=== PATIENT | female | born 1970 | race Caucasian/White ===

== ENCOUNTER 2018-03-18 10:39 | Emergency (ER) | payer MEDICARE, MEDICAID, SELFPAY | END 2018-03-18 11:15 | disposition home or self-care (01) | PROVIDERS: Emergency Provider Emergency Medicine; PCP Family Medicine; Visit Provider Emergency Medicine | DX: F41.9 Anxiety disorder, unspecified (principal); S61.401D Unspecified open wound of right hand, subsequent encounter; L98.499 Non-pressure chronic ulcer of skin of other sites with unspecified severity | CPT/HCPCS: 11042; 87070; 87075; 87205; 93005; 93010; 99283 ==

== ENCOUNTER → 2018-04-10 09:38 | Outpatient (CLI) | payer MEDICARE, MEDICAID, SELFPAY | PROVIDERS: PCP Family Medicine; Visit Provider Internal Medicine | DX: L98.499 Non-pressure chronic ulcer of skin of other sites with unspecified severity (principal); S61.401A Unspecified open wound of right hand, initial encounter; L97.312 Non-pressure chronic ulcer of right ankle with fat layer exposed | CPT/HCPCS: 11042 ==

== ENCOUNTER → 2018-04-17 09:07 | Outpatient (CLI) | payer MEDICARE, MEDICAID, SELFPAY | PROVIDERS: PCP Family Medicine; Visit Provider Internal Medicine | DX: L97.312 Non-pressure chronic ulcer of right ankle with fat layer exposed (principal); S61.401A Unspecified open wound of right hand, initial encounter; M36.8 Systemic disorders of connective tissue in other diseases classified elsewhere; L08.9 Local infection of the skin and subcutaneous tissue, unspecified | CPT/HCPCS: 11042; 87070; 87075; 87205 ==

== ENCOUNTER → 2018-04-24 08:47 | Outpatient (CLI) | payer MEDICARE, MEDICAID, SELFPAY | PROVIDERS: PCP Family Medicine; Visit Provider Internal Medicine | DX: L98.499 Non-pressure chronic ulcer of skin of other sites with unspecified severity (principal); S61.401D Unspecified open wound of right hand, subsequent encounter; L97.312 Non-pressure chronic ulcer of right ankle with fat layer exposed | CPT/HCPCS: 11042 ==

== ENCOUNTER → 2018-05-01 08:31 | Outpatient (CLI) | payer MEDICARE, MEDICAID, SELFPAY | PROVIDERS: PCP Family Medicine; Visit Provider Internal Medicine | DX: L98.499 Non-pressure chronic ulcer of skin of other sites with unspecified severity (principal); S61.401A Unspecified open wound of right hand, initial encounter; L97.311 Non-pressure chronic ulcer of right ankle limited to breakdown of skin; M36.8 Systemic disorders of connective tissue in other diseases classified elsewhere | CPT/HCPCS: 97597 ==

== ENCOUNTER → 2018-05-08 08:41 | Outpatient (CLI) | payer MEDICARE, MEDICAID, SELFPAY ==
--- NOTE | 2018-05-08 | OV.WND_ITS ---
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 Allergies prednisone, penicillin HPI This information was obtained from the patient 05/08/18. Seen by Dr. Cade. The patient reports increased pain associated with the right 2nd MTPJ non-pressure ulcer but none regarding the right lateral malleolus non- pressure ulcer. Her ulcers are complicated significantly by her diagnosis of scleroderma and she has a history of very refractory wound healing. 05/01/18. Seen by Dr. Cade. The patient reports continue significant pain associated with the right 2nd MTPJ non-pressure ulcer but none regarding the right lateral malleolus non-pressure ulcer. She's no longer applying topical gentamicin to the sites and covering only with a foam dressing. Her ulcers are complicated significantly by her diagnosis of scleroderma and she has a history of very refractory wound healing. 04/24/18. Seen by Dr. Cade. The patient reports continued pain associated with the chronic right 2nd MTPJ and right lateral malleolus non-pressure ulcers over the past week. Her wound culture from last week showed no growth. 04/17/18. Seen by Dr. Cade. The patient reports persistent pain associated with the chronic right 2nd MTPJ and right lateral malleolus non-pressure ulcers over the past week. Her ulcers are complicated significantly by her diagnosis of scleroderma and she has a history of very refractory wound healing. 04/10/18. Seen by Dr. Cade. The patient does not report significant pain nor drainage associated with the chronic right 2nd MCPJ or right lateral malleolus nonpressure ulcers since her last visit. Her wound culture grew Luh and she's no longer using topical antibiotics. 04/02/18. Seen by Dr. Cade. The patient does not report significant pain nor drainage associated with the chronic right 2nd MCPJ or right lateral malleolus nonpressure ulcers since her last visit. 03/26/18. Seen by Dr. Cade. The patient reports some intermittent pain associated with the chronic right 2nd MCPJ and right lateral malleolus non-pressure ulcers since her last visit. 03/18/18. Seen by Dr. Cade. The patient reports some recurrent pain associated with a recently healed right fourth finger nonpressure ulcer. She is on for drainage from the site however. She also does not report significant drainage or increased pain associated with the right second MCPJ nor right lateral malleolus nonpressure ulcers. 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 03/06/18. Seen by Dr. Cade. The patient reports some continued pain associated with chronic right second MCPJ and right lateral malleolus nonpressure ulcers since her last visit.. She saw her hand surgeon, Dr. Lezama, last week who has discharged her. 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 02/27/18. Seen by Dr. Cade. The patient does not report increased pain or drainage associated with the chronic right fourth finger, right second metacarpal phalangeal joint, her right lower leg nonpressure ulcers since her last visit. 02/12/18. Seen by Dr. Cade. The patient does not report increased pain or drainage associated with the chronic right fourth finger, right second metacarpal phalangeal joint, and right lower leg nonpressure ulcers since her last visit. She's applying topical gentamicin to each as recommended in her right lower leg ulcer grew a coag-negative staph species sensitive to gentamicin. Of note, her condition is complicated by advanced scleroderma. 02/13/18. Seen by Dr. Cade. The patient does not report increased drainage or pain associated with chronic right fourth finger nonpressure ulcer since her last visit. She started on Bactrim at this time however was unable tolerate this due to some nonspecific symptoms of confusion. She also reports a chronic wound over the right hand second MCP joint as well as the right lateral malleolus. She does not report drainage at these sites but states they are painful. 02/06/18. Seen by Dr. Cade. The patient does not report increased drainage nor pain associated with the chronic right 4th finger non-pressure ulcer and she's been started on Bactrim for the recent polymicrobial positive wound culture taken at her last visit. She does not report adverse side effects nor difficulty swallowing the tablets despite her advanced scleroderma which has been the eitiology of the chronic ulcer. 01/30/18. Seen by Dr. Cade. The patient is new to our clinic and presents with a chronic right 4th finger ulcer that's resulted as a complication of her advanced scleroderma. 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 Lezama, orthopedic hand specialist, who's referred her to our clinic for possible HBOT on the background of possible underlying osteomyelitis of the associated phalanx. She had a recent xray that suggested osteomyelitis however her MRI performed today does not confirm this. She reports persistent pain at the ulcer site but does not report significant drainage and is not currently on antibiotics. Past Medical History This information was obtained from the patient Patient has a medical history of: Raynaud's Disease Scleroderma Depression Anxiety Complaints and Symptoms This information was obtained from the patient Patient complains of: General Notes: I have reviewed and concur with the Review of Systems and Past Family Social History documents completed by the clinician, I have reviewed and concur with the Wound Assessment document completed by the clinician Integumentary (Hair/Skin/Nails): Open Sore Musculoskeletal: Deformities, Joint Swelling Prior Wound History: Drainage, Pain Psychiatric: Depression Patient denies complaints or symptoms related to: Constitutional Symptoms (General Health): Chills, Fever Ear/Nose/Mouth/Throat: Hearing Loss / Aid Gastrointestinal (GI): Difficulty Swallowing, Nausea / Vomiting, Stomach/ abdominal pain Hematologic/Lymphatic: Bleeding / Clotting Disorders Neurological: Loss of Protective Sensation Prior Wound History: Bleeding, Erythema Psychiatric: Memory Loss Respiratory: Shortness of Breath OBJECTIVE Constitutional Vital signs reviewed and noted. Frail appearing. Height/Length: 65 in (165.1 cm) , Weight: 111.1 lbs (50.5 kgs), BMI: 18.5, Temperature: 98.7 ?F (37.06 ?C), Pulse: 88 bpm , Respiratory Rate: 16 breaths/min, Blood Pressure: 108/65 mmHg, Pulse Oximetry: 97 %. Ears, Nose, Mouth, and Throat: No clinically significant hearing loss on informal examination. Respiratory: No respiratory distress. Even respirations and without use of accessory muscles.. Integumentary (Hair, Skin) Refer to appropriate clinician wound documentation for this visit; right 2nd MCPJ ulcer extends t subcut with minimal purulent drainage, joint erythematous, swollen, and tender ; right lateral malleolus ulcer extends to dermis. Wound #2 Right right 2nd knuckle is an acute Full Thickness Autoimmune Wound and has received a status of Not Healed. Subsequent wound encounter measurements are 0.2cm length x 0.2cm width x 0.1cm depth, with an area of 0.04 sq cm and a volume of 0.004 cubic cm. No tunneling has been noted. No sinus tract has been noted. No undermining has been noted. There was no drainage noted. The patient reports a wound pain of level 0/ 10. The wound margin is attached. Wound bed has No epithelialization, No eschar, No slough, No granulation. The periwound skin color is normal. The periwound skin exhibited: Edema, Dry/ Scaly. The periwound skin did not exhibit: Brawny Induration, Excoriation, Induration, Callus, Crepitus, Fluctuance, Friable, Rash, Moist, Maceration. The temperature of the periwound skin is Warm. Periwound skin does not exhibit signs or symptoms of infection. Local Pulse is N /A. Wound #3 Right, Lateral Ankle is an acute Partial Thickness Autoimmune Wound and has received an outcome of Healed - no new wound(s). Subsequent wound encounter measurements are 0cm length x 0cm width x 0cm depth, with an area of 0 sq cm and a volume of 0 cubic cm. No tunneling has been noted. No sinus tract has been noted. No undermining has been noted. There was no drainage noted. The patient reports a wound pain of level 0/10. The wound margin is attached. Wound bed has Yes epithelialization , No eschar, No slough, No granulation. The periwound skin texture is normal. The periwound skin moisture is normal. The periwound skin color is normal. The temperature of the periwound skin is WNL. Periwound skin does not exhibit signs or symptoms of infection. Local Pulse is Doppler. Neurological: Cranial nerves grossly intact with symmetric function normal by informal observation.. ASSESSMENT Active Problems ICD-10 (Encounter Diagnosis) L98.499 - Non-pressure chronic ulcer of skin of other sites with unspecified severity (Encounter Diagnosis) S61.401D - Unspecified open wound of right hand, subsequent encounter (Encounter Diagnosis) L97.312 - Non-pressure chronic ulcer of right ankle with fat layer exposed (Encounter Diagnosis) M36.8 - Systemic disorders of connective tissue in other diseases classified elsewhere (Encounter Diagnosis) L03.113 - Cellulitis of right upper limb PROCEDURES Wound #2 Wound #2 (Autoimmune Wound) is located on the right right 2nd knuckle. A selective debridement with a total area debrided of 0.01 sq cm was performed by Kevin Cade MD. to remove devitalized tissue: exudate and slough. The following instrument(s) were used: curette. Pain control was achieved using 4% Lido. A time out was conducted prior to the start of the procedure. No bleeding occurred. The procedure was tolerated well with a pain level of 0 throughout and a pain level of 0 following the procedure. Post Debridement Measurements: 0.1cm length x 0.1cm width x 0.2cm depth; with an area of 0.01 sq cm and a volume of 0.002 cubic cm; PLAN Wound Orders: Wound #2 Right right 2nd knuckle Anesthetic Topical Xylocaine to wound bed. - In clinic. May Use emla cream with dressing changes. Cleanser Cleanse Wound: - With Normal Saline or distilled water. May Shower. - Please cover when you take a shower, avoid water contact directly to the wound. Topical Treatments Antibiotic/Antimicrobial Ointment/Cream. - Gentamicin ointment. Dressings Cover and secure with: - Telfa pad secured with conform gauze and netting. Change Dressing: - Every other day. Wound #3 Right, Lateral Ankle Anesthetic Topical Xylocaine to wound bed. - In clinic. May Use emla cream with dressing changes. Cleanser Cleanse Wound: - With Normal Saline or distilled water. May Shower. - Please cover when you take a shower, avoid water contact directly to the wound. Dressings Cover and secure with: - Mepilex. Change Dressing: - Every 3 days. Additional Orders: Follow-Up Appointments Return Appointment: - - One week. Other information: If you develop fever, chills, increased pain, drainage, redness or swelling please call our office. If after hours, respond to the ER. Should you experience any significant changes in your wound(s) or have any questions regarding your home care instructions please contact the wound center @ [phone]. If after hours, contact your primary care physician or go to the hospital emergency room. Scribing Attestation I attest, as the nurse, that I scribed these orders for the physician. Laboratory: Bacteria identified in Wound by Culture - #2. General Notes: Please pick remover prescription for doxycycline and start today. Will call with culture results if any changes are needed. I've reviewed the clinician's documentation and agree with the evaluation and plan as written. In addition, the patient's ulcer demonstrates evidence of non-viable devitalized tissue which will continue to benefit from sharp debridement to help promote granulation and expedite healing. Also, I've cultured the drainage from the right 2nd MTPJ ulcer and started the patient on doxycycline for cellulitis. Antibiotics will be adjusted pending the culture results. Electronic Signature(s) Signed By: Date: Kevin Cade MD 05/08/2018 15:30:00 Entered By: Kevin Cade on 05/08/2018 15:24:40
== END ==
PROVIDERS: PCP Family Medicine; Visit Provider Internal Medicine
DX: L98.499 Non-pressure chronic ulcer of skin of other sites with unspecified severity (principal); S61.401A Unspecified open wound of right hand, initial encounter; L97.312 Non-pressure chronic ulcer of right ankle with fat layer exposed; M36.8 Systemic disorders of connective tissue in other diseases classified elsewhere; L03.113 Cellulitis of right upper limb
CPT/HCPCS: 87070; 87075; 87077; 87186; 87205; 97597

== ENCOUNTER → 2018-05-15 08:40 | Outpatient (CLI) | payer MEDICARE, MEDICAID, SELFPAY ==
--- NOTE | 2018-05-15 | OV.WND_ITS ---
Progress Note Details Patient Name: Su Escamilla Patient Number: [id number] PatientPatientDate: 05/15/2018 Clinician: Eboni Gentile Physician / Order Control Clerk Blood Bank: Elmer Martins SUBJECTIVE Chief Complaint This information was obtained from the patient Non- healing wound to right third finger and ankle related to scleroderma and Reynaud's. Allergies prednisone, penicillin HPI This information was obtained from the patient 05/15/18. Seen by Owen Martins PA-C. The patient reports that she has an appointment scheduled with Dr. Booth for September of this year. She does not report increased pain from her right MTPJ ulcer and she continues on her doxycycline for an infection of this ulcer. 05/08/18. Seen by Dr. Cade. The patient reports increased pain associated with the right 2nd MTPJ non-pressure ulcer but none regarding the right lateral malleolus non- pressure ulcer. Her ulcers are complicated significantly by her diagnosis of scleroderma and she has a history of very refractory wound healing. 05/01/18. Seen by Dr. Cade. The patient reports continue significant pain associated with the right 2nd MTPJ non-pressure ulcer but none regarding the right lateral malleolus non-pressure ulcer. She's no longer applying topical gentamicin to the sites and covering only with a foam dressing. Her ulcers are complicated significantly by her diagnosis of scleroderma and she has a history of very refractory wound healing. 04/24/18. Seen by Dr. Cade. The patient reports continued pain associated with the chronic right 2nd MTPJ and right lateral malleolus non-pressure ulcers over the past week. Her wound culture from last week showed no growth. 04/17/18. Seen by Dr. Cade. The patient reports persistent pain associated with the chronic right 2nd MTPJ and right lateral malleolus non-pressure ulcers over the past week. Her ulcers are complicated significantly by her diagnosis of scleroderma and she has a history of very refractory wound healing. 04/10/18. Seen by Dr. Cade. The patient does not report significant pain nor drainage associated with the chronic right 2nd MCPJ or right lateral malleolus nonpressure ulcers since her last visit. Her wound culture grew Luh and she's no longer using topical antibiotics. 04/02/18. Seen by Dr. Cade. The patient does not report significant pain nor drainage associated with the chronic right 2nd MCPJ or right lateral malleolus nonpressure ulcers since her last visit. 03/26/18. Seen by Dr. Cade. The patient reports some intermittent pain associated with the chronic right 2nd MCPJ and right lateral malleolus non-pressure ulcers since her last visit. 03/18/18. Seen by Dr. Cade. The patient reports some recurrent pain associated with a recently healed right fourth finger nonpressure ulcer. She is on for drainage from the site however. She also does not report significant drainage or increased pain associated with the right second MCPJ nor right lateral malleolus nonpressure ulcers. 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 03/06/18. Seen by Dr. Cade. The patient reports some continued pain associated with chronic right second MCPJ and right lateral malleolus nonpressure ulcers since her last visit.. She saw her hand surgeon, Dr. Lezama, last week who has discharged her. 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 02/27/18. Seen by Dr. Cade. The patient does not report increased pain or drainage associated with the chronic right fourth finger, right second metacarpal phalangeal joint, her right lower leg nonpressure ulcers since her last visit. 02/12/18. Seen by Dr. Cade. The patient does not report increased pain or drainage associated with the chronic right fourth finger, right second metacarpal phalangeal joint, and right lower leg nonpressure ulcers since her last visit. She's applying topical gentamicin to each as recommended in her right lower leg ulcer grew a coag-negative staph species sensitive to gentamicin. Of note, her condition is complicated by advanced scleroderma. 02/13/18. Seen by Dr. Cade. The patient does not report increased drainage or pain associated with chronic right fourth finger nonpressure ulcer since her last visit. She started on Bactrim at this time however was unable tolerate this due to some nonspecific symptoms of confusion. She also reports a chronic wound over the right hand second MCP joint as well as the right lateral malleolus. She does not report drainage at these sites but states they are painful. 02/06/18. Seen by Dr. aCde. The patient does not report increased drainage nor pain associated with the chronic right 4th finger non-pressure ulcer and she's been started on Bactrim for the recent polymicrobial positive wound culture taken at her last visit. She does not report adverse side effects nor difficulty swallowing the tablets despite her advanced scleroderma which has been the eitiology of the chronic ulcer. 01/30/18. Seen by Dr. Cade. The patient is new to our clinic and presents with a chronic right 4th finger ulcer that's resulted as a complication of her advanced scleroderma. 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 Lezama, orthopedic hand specialist, who's referred her to our clinic for possible HBOT on the background of possible underlying osteomyelitis of the associated phalanx. She had a recent xray that suggested osteomyelitis however her MRI performed today does not confirm this. She reports persistent pain at the ulcer site but does not report significant drainage and is not currently on antibiotics. Family History This information was obtained from the patient Diabetes - Father, Paternal Grandparents, Heart Disease - Maternal Grandparents , Lung Disease - Father, Mental Illness - Paternal Grandparents, Other - Mother, Stroke - Maternal Grandparents Social History This information was obtained from the patient Former smoker - 2012, Caffeine Use - 3 cups, Children - 2, Lives in - Private home , Mental health concerns - Depression, anxiety, Occupation - Disabled Past Medical History This information was obtained from the patient Patient has a medical history of: Raynaud's Disease Scleroderma Depression Anxiety Surgical History This information was obtained from the patient Patient has a surgical history of: Right hand digit amputations Complaints and Symptoms This information was obtained from the patient Patient complains of: General Notes: I have reviewed and concur with the Review of Systems and Past Family Social History documents completed by the clinician, I have reviewed and concur with the Wound Assessment document completed by the clinician Integumentary (Hair/Skin/Nails): Open Sore Musculoskeletal: Deformities, Joint Swelling Prior Wound History: Drainage, Pain Psychiatric: Depression Patient denies complaints or symptoms related to: Constitutional Symptoms (General Health): Chills, Fever Ear/Nose/Mouth/Throat: Hearing Loss / Aid Gastrointestinal (GI): Difficulty Swallowing, Nausea / Vomiting, Stomach/ abdominal pain Hematologic/Lymphatic: Bleeding / Clotting Disorders Neurological: Loss of Protective Sensation Prior Wound History: Bleeding, Erythema Psychiatric: Memory Loss Respiratory: Shortness of Breath OBJECTIVE Constitutional Vital signs reviewed and noted. Well developed, lucid, and in no acute distress. . Height/Length: 65 in (165.1 cm), Weight: 111.1 lbs (50.5 kgs), BMI: 18.5, Temperature: 98.8 ?F (37.11 ?C), Pulse: 95 bpm, Respiratory Rate: 16 breaths/min, Blood Pressure: 127/87 mmHg, Pulse Oximetry: 97 %. Ears, Nose, Mouth, and Throat: Grossly intact. Respiratory: No respiratory distress. Even respirations and without use of accessory muscles.. Integumentary (Hair, Skin) Refer to appropriate clinician wound documentation for this visit; ulcer extends to subcutaneous fat layer. . Wound #2 Right right 2nd knuckle is an acute Full Thickness Autoimmune Wound and has received a status of Not Healed. Subsequent wound encounter measurements are 0.2cm length x 0.2cm width x 0.1cm depth, with an area of 0.04 sq cm and a volume of 0.004 cubic cm. No tunneling has been noted. No sinus tract has been noted. No undermining has been noted. There was no drainage noted. The patient reports a wound pain of level 0/ 10. The wound margin is attached. Wound bed has Yes epithelialization, No eschar, No slough, No granulation. The periwound skin exhibited: Edema, Dry/Scaly, Erythema. The periwound skin did not exhibit: Brawny Induration, Excoriation, Induration, Callus, Crepitus, Fluctuance, Friable, Rash, Moist, Maceration. The temperature of the periwound skin is Warm. Periwound skin does not exhibit signs or symptoms of infection. Local Pulse is N/A. Psychiatric: Judgement and insight: Normal affect with normal thought pattern. Alert and oriented 3/3. Memory grossly intact.. Normal affect. Mood appropriate.. ASSESSMENT Active Problems ICD-10 (Encounter Diagnosis) L98.499 - Non-pressure chronic ulcer of skin of other sites with unspecified severity (Encounter Diagnosis) S61.401D - Unspecified open wound of right hand, subsequent encounter (Encounter Diagnosis) L97.312 - Non-pressure chronic ulcer of right ankle with fat layer exposed (Encounter Diagnosis) M36.8 - Systemic disorders of connective tissue in other diseases classified elsewhere (Encounter Diagnosis) L03.113 - Cellulitis of right upper limb PROCEDURES Wound #2 Wound #2 (Autoimmune Wound) is located on the right right 2nd knuckle. A selective debridement with a total area debrided of 0.04 sq cm was performed by Elmer Martins PA. to remove devitalized tissue: slough. The following instrument(s) were used: curette. Pain control was achieved using 4% Lido. A time out was conducted prior to the start of the procedure. No bleeding occurred. The procedure was tolerated well with a pain level of 0 throughout and a pain level of 0 following the procedure. Post Debridement Measurements: 0.2cm length x 0.2cm width x 0.2cm depth; with an area of 0.04 sq cm and a volume of 0.008 cubic cm; PLAN Wound Orders: Wound #2 Right right 2nd knuckle Anesthetic Topical Xylocaine to wound bed. - In clinic. May Use emla cream with dressing changes. Cleanser Cleanse Wound: - With Normal Saline or distilled water. May Shower. - Please cover when you take a shower, avoid water contact directly to the wound. Topical Treatments Antibiotic/Antimicrobial Ointment/Cream. - Gentamicin ointment. Dressings Cover and secure with: - Telfa pad secured with conform gauze and netting. Change Dressing: - Every other day. Additional Orders: Follow-Up Appointments Return Appointment: - - One week. Other information: If you develop fever, chills, increased pain, drainage, redness or swelling please call our office. If after hours, respond to the ER. Should you experience any significant changes in your wound(s) or have any questions regarding your home care instructions please contact the wound center @ [phone]. If after hours, contact your primary care physician or go to the hospital emergency room. Scribing Attestation I attest, as the nurse, that I scribed these orders for the physician. General Notes: Please continue oral antibiotics as prescribed. I've reviewed the clinician's documentation and agree with the evaluation and plan as written. In addition the patient's ulcer demonstrates evidence of non-viable devitalized tissue which benefits from sharp debridement. Separate from the need for debridement today to speed healing, the patient's infection was assessed and appears to still be active. The patient was enouraged to continue complying with the ordered antimicrobial regemin for ongoing treatment for this issue. Electronic Signature(s) Signed By: Date: Owen Martins 05/19/2018 16:56:38 Entered By: Owen Martins on 05/19/2018 15:03:18
== END ==
PROVIDERS: PCP Family Medicine; Visit Provider Physician Assistant
DX: L98.499 Non-pressure chronic ulcer of skin of other sites with unspecified severity (principal); S61.401A Unspecified open wound of right hand, initial encounter; L03.113 Cellulitis of right upper limb; M36.8 Systemic disorders of connective tissue in other diseases classified elsewhere
CPT/HCPCS: 97597

== ENCOUNTER → 2018-05-28 10:46 | Outpatient (CLI) | payer MEDICARE, MEDICAID, SELFPAY ==
--- NOTE | 2018-05-28 | OV.WND_ITS ---
Progress Note Details Patient Name: Su Escamilla Date: Patient Number: [id number] [facility] 05/28/2018 kermit: Eboni Gentile Cosigner: Lexiegonzalo Ashley SUBJECTIVE Chief Complaint This information was obtained from the patient Non- healing wound to right third finger and ankle related to scleroderma and Reynaud's. Allergies prednisone, penicillin HPI This information was obtained from the patient 05/28/18. Seen by Dr. Cade. The patient fell yesterday hitting her right 2nd MTPJ non-pressure which she states was very painful but did not result in bleeding or worsening of the ulcer. She's completed her course of doxycycline that was treating the coag negative Staph culture and continues to applying topical gentamicin as recommended. Her ulcers are complicated significantly by her diagnosis of scleroderma and she has a history of very refractory wound healing. 05/15/18. Seen by Owen Martins PA-C. The patient reports that she has an appointment scheduled with Dr. Booth for September of this year. She does not report increased pain from her right MTPJ ulcer and she continues on her doxycycline for an infection of this ulcer. 05/08/18. Seen by Dr. Cade. The patient reports increased pain associated with the right 2nd MTPJ non-pressure ulcer but none regarding the right lateral malleolus non- pressure ulcer. Her ulcers are complicated significantly by her diagnosis of scleroderma and she has a history of very refractory wound healing. 05/01/18. Seen by Dr. Cade. The patient reports continue significant pain associated with the right 2nd MTPJ non-pressure ulcer but none regarding the right lateral malleolus non-pressure ulcer. She's no longer applying topical gentamicin to the sites and covering only with a foam dressing. Her ulcers are complicated significantly by her diagnosis of scleroderma and she has a history of very refractory wound healing. 04/24/18. Seen by Dr. Cade. The patient reports continued pain associated with the chronic right 2nd MTPJ and right lateral malleolus non-pressure ulcers over the past week. Her wound culture from last week showed no growth. 04/17/18. Seen by Dr. Cade. The patient reports persistent pain associated with the chronic right 2nd MTPJ and right lateral malleolus non-pressure ulcers over the past week. Her ulcers are complicated significantly by her diagnosis of scleroderma and she has a history of very refractory wound healing. 04/10/18. Seen by Dr. Cade. The patient does not report significant pain nor drainage associated with the chronic right 2nd MCPJ or right lateral malleolus nonpressure ulcers since her last visit. Her wound culture grew Luh and she's no longer using topical antibiotics. 04/02/18. Seen by Dr. Cade. The patient does not report significant pain nor drainage associated with the chronic right 2nd MCPJ or right lateral malleolus nonpressure ulcers since her last visit. 03/26/18. Seen by Dr. Cade. The patient reports some intermittent pain associated with the chronic right 2nd MCPJ and right lateral malleolus non-pressure ulcers since her last visit. 03/18/18. Seen by Dr. Cade. The patient reports some recurrent pain associated with a recently healed right fourth finger nonpressure ulcer. She is on for drainage from the site however. She also does not report significant drainage or increased pain associated with the right second MCPJ nor right lateral malleolus nonpressure ulcers. 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 03/06/18. Seen by Dr. Cade. The patient reports some continued pain associated with chronic right second MCPJ and right lateral malleolus nonpressure ulcers since her last visit.. She saw her hand surgeon, Dr. Lezama, last week who has discharged her. 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 02/27/18. Seen by Dr. Cade. The patient does not report increased pain or drainage associated with the chronic right fourth finger, right second metacarpal phalangeal joint, her right lower leg nonpressure ulcers since her last visit. 02/12/18. Seen by Dr. Cade. The patient does not report increased pain or drainage associated with the chronic right fourth finger, right second metacarpal phalangeal joint, and right lower leg nonpressure ulcers since her last visit. She's applying topical gentamicin to each as recommended in her right lower leg ulcer grew a coag-negative staph species sensitive to gentamicin. Of note, her condition is complicated by advanced scleroderma. 02/13/18. Seen by Dr. Cade. The patient does not report increased drainage or pain associated with chronic right fourth finger nonpressure ulcer since her last visit. She started on Bactrim at this time however was unable tolerate this due to some nonspecific symptoms of confusion. She also reports a chronic wound over the right hand second MCP joint as well as the right lateral malleolus. She does not report drainage at these sites but states they are painful. 02/06/18. Seen by Dr. Cade. The patient does not report increased drainage nor pain associated with the chronic right 4th finger non-pressure ulcer and she's been started on Bactrim for the recent polymicrobial positive wound culture taken at her last visit. She does not report adverse side effects nor difficulty swallowing the tablets despite her advanced scleroderma which has been the eitiology of the chronic ulcer. 01/30/18. Seen by Dr. Cade. The patient is new to our clinic and presents with a chronic right 4th finger ulcer that's resulted as a complication of her advanced scleroderma. 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 Lezama, orthopedic hand specialist, who's referred her to our clinic for possible HBOT on the background of possible underlying osteomyelitis of the associated phalanx. She had a recent xray that suggested osteomyelitis however her MRI performed today does not confirm this. She reports persistent pain at the ulcer site but does not report significant drainage and is not currently on antibiotics. Past Medical History This information was obtained from the patient Patient has a medical history of: Raynaud's Disease Scleroderma Depression Anxiety Complaints and Symptoms This information was obtained from the patient Patient complains of: General Notes: I have reviewed and concur with the Review of Systems and Past Family Social History documents completed by the clinician, I have reviewed and concur with the Wound Assessment document completed by the clinician Integumentary (Hair/Skin/Nails): Open Sore Musculoskeletal: Deformities, Joint Swelling Prior Wound History: Drainage, Pain Psychiatric: Depression Patient denies complaints or symptoms related to: Constitutional Symptoms (General Health): Chills, Fever Ear/Nose/Mouth/Throat: Hearing Loss / Aid Gastrointestinal (GI): Difficulty Swallowing, Nausea / Vomiting, Stomach/ abdominal pain Hematologic/Lymphatic: Bleeding / Clotting Disorders Neurological: Loss of Protective Sensation Prior Wound History: Bleeding, Erythema Psychiatric: Memory Loss Respiratory: Shortness of Breath OBJECTIVE Constitutional Vital signs reviewed and noted. Well developed. Alert. Clean appearing.. Height/ Length: 65 in (165.1 cm), Weight: 111.1 lbs (50.5 kgs), BMI: 18.5, Temperature: 97.3 ?F ( 36.28 ?C), Pulse: 91 bpm, Respiratory Rate: 16 breaths/min, Blood Pressure: 104/71 mmHg, Pulse Oximetry: 97 %. Ears, Nose, Mouth, and Throat: No clinically significant hearing loss on informal examination. Respiratory: No respiratory distress. Even respirations and without use of accessory muscles.. Integumentary (Hair, Skin) Mild periwound erythema without warmth. Refer to appropriate clinician wound documentation for this visit; right 2nd MCPJ ulcer extends to subcut; smaller and less tender than on previous review. Wound #2 Right right 2nd knuckle is an acute Full Thickness Autoimmune Wound and has received a status of Not Healed. Subsequent wound encounter measurements are 0.3cm length x 0.3cm width x 0.1cm depth, with an area of 0.09 sq cm and a volume of 0.009 cubic cm. No tunneling has been noted. No sinus tract has been noted. No undermining has been noted. There was no drainage noted. The patient reports a wound pain of level 0/ 10. The wound margin is attached. Wound bed has Yes epithelialization, No eschar, Yes slough, No granulation. The periwound skin exhibited: Edema, Dry/Scaly, Erythema. The periwound skin did not exhibit: Brawny Induration, Excoriation, Induration, Callus, Crepitus, Fluctuance, Friable, Rash, Moist, Maceration. The temperature of the periwound skin is Warm. Periwound skin does not exhibit signs or symptoms of infection. Local Pulse is N/A. Neurological: Cranial nerves grossly intact with symmetric function normal by informal observation.. ASSESSMENT Active Problems ICD-10 (Encounter Diagnosis) L98.499 - Non-pressure chronic ulcer of skin of other sites with unspecified severity (Encounter Diagnosis) S61.401D - Unspecified open wound of right hand, subsequent encounter (Encounter Diagnosis) M36.8 - Systemic disorders of connective tissue in other diseases classified elsewhere (Encounter Diagnosis) B95.7 - Other staphylococcus as the cause of diseases classified elsewhere PROCEDURES Wound #2 Wound #2 (Autoimmune Wound) is located on the right right [facility] knuckle. A skin/subcutaneous tissue level surgical debridement with a total area debrided of 0.09 sq cm was performed by Kevin Cade MD. Dermis, Epidermis, and Subcutaneous were removed along with devitalized tissue: slough. Pain control was achieved using 4% Lido. A time out was conducted prior to the start of the procedure. A minimal amount of bleeding was controlled with n/a. The procedure was tolerated well with a pain level of 0 throughout and a pain level of 0 following the procedure. Post Debridement Measurements: 0.3cm length x 0.3cm width x 0.2cm depth; with an area of 0.09 sq cm and a volume of 0.018 cubic cm; Additional Information Muscle fascia or bone removed and sent to pathology?: No PLAN Wound Orders: Wound #2 Right right 2nd knuckle Anesthetic Topical Xylocaine to wound bed. - In clinic. May Use emla cream with dressing changes. Cleanser Cleanse Wound: - With Normal Saline or distilled water. May Shower. - Please cover when you take a shower, avoid water contact directly to the wound. Topical Treatments Antibiotic/Antimicrobial Ointment/Cream. - Gentamicin ointment. Dressings Cover and secure with: - Telfa pad secured with conform gauze and netting. Change Dressing: - Every other day. Additional Orders: Follow-Up Appointments Return Appointment: - - One week. Other information: If you develop fever, chills, increased pain, drainage, redness or swelling please call our office. If after hours, respond to the ER. Should you experience any significant changes in your wound(s) or have any questions regarding your home care instructions please contact the wound center @ [phone]. If after hours, contact your primary care physician or go to the hospital emergency room. Scribing Attestation I attest, as the nurse, that I scribed these orders for the physician. I've reviewed the clinician's documentation and agree with the evaluation and plan as written. In addition, the patient's ulcer demonstrates evidence of non-viable devitalized tissue which will continue to benefit from sharp debridement to help promote granulation and expedite healing. Also, the patient will continue to treat the coag negative Staph culture with topical gentamicin as the ulcer appears to have made modest progress over the past two weeks while treating the infection. Electronic Signature(s) Signed By: Date: Kevin Cade MD 05/30/2018 08:46:21 Entered By: Kevin Cade on 05/28/2018 09:39:37
== END ==
PROVIDERS: PCP Family Medicine; Visit Provider Internal Medicine
DX: L98.499 Non-pressure chronic ulcer of skin of other sites with unspecified severity (principal); S61.401A Unspecified open wound of right hand, initial encounter; M36.8 Systemic disorders of connective tissue in other diseases classified elsewhere; B95.7 Other staphylococcus as the cause of diseases classified elsewhere
CPT/HCPCS: 11042

== ENCOUNTER → 2018-06-05 08:57 | Outpatient (CLI) | payer MEDICARE, MEDICAID, SELFPAY ==
--- NOTE | 2018-06-05 | OV.WND_ITS ---
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 Allergies prednisone, penicillin HPI This information was obtained from the patient 06/05/18. Seen by Dr. Cade. The patient does not report increased pain associated with the right 2nd MTPJ non-pressure ulcer since her last visit and she's applying topical gentamicin to treat the superficial wound infection as recommended. Her healing is significantly delayed due to her advanced scleroderma. 05/28/18. Seen by Dr. Cade. The patient fell yesterday hitting her right 2nd MTPJ non-pressure which she states was very painful but did not result in bleeding or worsening of the ulcer. She's completed her course of doxycycline that was treating the coag negative Staph culture and continues to applying topical gentamicin as recommended. Her ulcers are complicated significantly by her diagnosis of scleroderma and she has a history of very refractory wound healing. 05/15/18. Seen by Owen Martins PA-C. The patient reports that she has an appointment scheduled with Dr. Booth for September of this year. She does not report increased pain from her right MTPJ ulcer and she continues on her doxycycline for an infection of this ulcer. 05/08/18. Seen by Dr. Cade. The patient reports increased pain associated with the right 2nd MTPJ non-pressure ulcer but none regarding the right lateral malleolus non- pressure ulcer. Her ulcers are complicated significantly by her diagnosis of scleroderma and she has a history of very refractory wound healing. 05/01/18. Seen by Dr. Cade. The patient reports continue significant pain associated with the right 2nd MTPJ non-pressure ulcer but none regarding the right lateral malleolus non-pressure ulcer. She's no longer applying topical gentamicin to the sites and covering only with a foam dressing. Her ulcers are complicated significantly by her diagnosis of scleroderma and she has a history of very refractory wound healing. 04/24/18. Seen by Dr. Cade. The patient reports continued pain associated with the chronic right 2nd MTPJ and right lateral malleolus non-pressure ulcers over the past week. Her wound culture from last week showed no growth. 04/17/18. Seen by Dr. Cade. The patient reports persistent pain associated with the chronic right 2nd MTPJ and right lateral malleolus non-pressure ulcers over the past week. Her ulcers are complicated significantly by her diagnosis of scleroderma and she has a history of very refractory wound healing. 04/10/18. Seen by Dr. Cade. The patient does not report significant pain nor drainage associated with the chronic right 2nd MCPJ or right lateral malleolus nonpressure ulcers since her last visit. Her wound culture grew Luh and she's no longer using topical antibiotics. 04/02/18. Seen by Dr. Cade. The patient does not report significant pain nor drainage associated with the chronic right 2nd MCPJ or right lateral malleolus nonpressure ulcers since her last visit. 03/26/18. Seen by Dr. Cade. The patient reports some intermittent pain associated with the chronic right 2nd MCPJ and right lateral malleolus non-pressure ulcers since her last visit. 03/18/18. Seen by Dr. Cade. The patient reports some recurrent pain associated with a recently healed right fourth finger nonpressure ulcer. She is on for drainage from the site however. She also does not report significant drainage or increased pain associated with the right second MCPJ nor right lateral malleolus nonpressure ulcers. 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 03/06/18. Seen by Dr. Cade. The patient reports some continued pain associated with chronic right second MCPJ and right lateral malleolus nonpressure ulcers since her last visit.. She saw her hand surgeon, Dr. Lezama, last week who has discharged her. 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 02/27/18. Seen by Dr. Cade. The patient does not report increased pain or drainage associated with the chronic right fourth finger, right second metacarpal phalangeal joint, her right lower leg nonpressure ulcers since her last visit. 02/12/18. Seen by Dr. Cade. The patient does not report increased pain or drainage associated with the chronic right fourth finger, right second metacarpal phalangeal joint, and right lower leg nonpressure ulcers since her last visit. She's applying topical gentamicin to each as recommended in her right lower leg ulcer grew a coag-negative staph species sensitive to gentamicin. Of note, her condition is complicated by advanced scleroderma. 02/13/18. Seen by Dr. Cade. The patient does not report increased drainage or pain associated with chronic right fourth finger nonpressure ulcer since her last visit. She started on Bactrim at this time however was unable tolerate this due to some nonspecific symptoms of confusion. She also reports a chronic wound over the right hand second MCP joint as well as the right lateral malleolus. She does not report drainage at these sites but states they are painful. 02/06/18. Seen by Dr. Cade. The patient does not report increased drainage nor pain associated with the chronic right 4th finger non-pressure ulcer and she's been started on Bactrim for the recent polymicrobial positive wound culture taken at her last visit. She does not report adverse side effects nor difficulty swallowing the tablets despite her advanced scleroderma which has been the eitiology of the chronic ulcer. 01/30/18. Seen by Dr. Cade. The patient is new to our clinic and presents with a chronic right 4th finger ulcer that's resulted as a complication of her advanced scleroderma. 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 Lezama, orthopedic hand specialist, who's referred her to our clinic for possible HBOT on the background of possible underlying osteomyelitis of the associated phalanx. She had a recent xray that suggested osteomyelitis however her MRI performed today does not confirm this. She reports persistent pain at the ulcer site but does not report significant drainage and is not currently on antibiotics. Past Medical History This information was obtained from the patient Patient has a medical history of: Raynaud's Disease Scleroderma Depression Anxiety Complaints and Symptoms This information was obtained from the patient Patient complains of: General Notes: I have reviewed and concur with the Review of Systems and Past Family Social History documents completed by the clinician, I have reviewed and concur with the Wound Assessment document completed by the clinician Integumentary (Hair/Skin/Nails): Open Sore Musculoskeletal: Deformities, Joint Swelling Prior Wound History: Drainage, Pain Psychiatric: Depression Patient denies complaints or symptoms related to: Constitutional Symptoms (General Health): Chills, Fever Ear/Nose/Mouth/Throat: Hearing Loss / Aid Gastrointestinal (GI): Difficulty Swallowing, Nausea / Vomiting, Stomach/ abdominal pain Hematologic/Lymphatic: Bleeding / Clotting Disorders Neurological: Loss of Protective Sensation Prior Wound History: Bleeding, Erythema Psychiatric: Memory Loss Respiratory: Shortness of Breath OBJECTIVE Constitutional Vital signs reviewed and noted. Well developed. Alert. Clean appearing.. Height/ Length: 65 in (165.1 cm), Weight: 111.1 lbs (50.5 kgs), BMI: 18.5, Temperature: 97.8 ?F ( 36.56 ?C), Pulse: 97 bpm, Respiratory Rate: 16 breaths/min, Blood Pressure: 123/80 mmHg, Pulse Oximetry: 97 %. Ears, Nose, Mouth, and Throat: No clinically significant hearing loss on informal examination. Respiratory: No respiratory distress. Even respirations and without use of accessory muscles.. Integumentary (Hair, Skin) Mild periwound erythema without warmth. Refer to appropriate clinician wound documentation for this visit; right 2nd MCPJ ulcer extends to subcut. Wound #2 Right right 2nd knuckle is an acute Full Thickness Autoimmune Wound and has received a status of Not Healed. Subsequent wound encounter measurements are 0.3cm length x 0.3cm width x 0.2cm depth, with an area of 0.09 sq cm and a volume of 0.018 cubic cm. No tunneling has been noted. No sinus tract has been noted. No undermining has been noted. There was no drainage noted. The patient reports a wound pain of level 4/ 10. The wound margin is attached. Wound bed has Yes epithelialization, No eschar, Yes slough, Yes pink, firm granulation. The periwound skin exhibited: Edema, Dry/Scaly, Erythema. The periwound skin did not exhibit: Brawny Induration, Excoriation, Induration, Callus, Crepitus, Fluctuance, Friable, Rash, Moist, Maceration. The temperature of the periwound skin is Warm. Periwound skin does not exhibit signs or symptoms of infection. Local Pulse is N/A. Neurological: Cranial nerves grossly intact with symmetric function normal by informal observation.. ASSESSMENT Active Problems ICD-10 (Encounter Diagnosis) L98.499 - Non-pressure chronic ulcer of skin of other sites with unspecified severity (Encounter Diagnosis) S61.401D - Unspecified open wound of right hand, subsequent encounter (Encounter Diagnosis) M36.8 - Systemic disorders of connective tissue in other diseases classified elsewhere (Encounter Diagnosis) B95.7 - Other staphylococcus as the cause of diseases classified elsewhere PROCEDURES Wound #2 Wound #2 (Autoimmune Wound) is located on the right right 2nd knuckle. A skin/subcutaneous tissue level surgical debridement with a total area debrided of 0.09 sq cm was performed by Kevin Cade MD. Subcutaneous was removed along with devitalized tissue: slough. The following instrument(s) were used: curette. Pain control was achieved using 4% Lido. A time out was conducted prior to the start of the procedure. A minimal amount of bleeding was controlled with n/a. The procedure was tolerated well with a pain level of 0 throughout and a pain level of 0 following the procedure. Post Debridement Measurements: 0.3cm length x 0.3cm width x 0.2cm depth; with an area of 0.09 sq cm and a volume of 0.018 cubic cm; PLAN Wound Orders: Wound #2 Right right 2nd knuckle Anesthetic Topical Xylocaine to wound bed. - In clinic. May Use emla cream with dressing changes. Cleanser Cleanse Wound: - With Normal Saline or distilled water. May Shower. - Please cover when you take a shower, avoid water contact directly to the wound. Topical Treatments Antibiotic/Antimicrobial Ointment/Cream. - Gentamicin ointment. Dressings Cover and secure with: - Telfa pad secured with conform gauze and netting. Change Dressing: - Every other day. Additional Orders: Follow-Up Appointments Return Appointment: - - One week. Other information: If you develop fever, chills, increased pain, drainage, redness or swelling please call our office. If after hours, respond to the ER. Should you experience any significant changes in your wound(s) or have any questions regarding your home care instructions please contact the wound center @ [phone]. If after hours, contact your primary care physician or go to the hospital emergency room. Scribing Attestation I attest, as the nurse, that I scribed these orders for the physician. I've reviewed the clinician's documentation and agree with the evaluation and plan as written. In addition, the patient's ulcer demonstrates evidence of non-viable devitalized tissue which will continue to benefit from sharp debridement to help promote granulation and expedite healing. Also, the patient will continue to apply topical gentamicin to treat the Staph infection as the ulcer's been slowly healing since we started treatment. Electronic Signature(s) Signed By: Date: Kevin Cade MD 06/05/2018 16:09:26 Entered By: Kevin Cade on 06/05/2018 11:24:46
== END ==
PROVIDERS: PCP Family Medicine; Visit Provider Internal Medicine
DX: L98.499 Non-pressure chronic ulcer of skin of other sites with unspecified severity (principal); S61.401A Unspecified open wound of right hand, initial encounter; M36.8 Systemic disorders of connective tissue in other diseases classified elsewhere; B95.7 Other staphylococcus as the cause of diseases classified elsewhere
CPT/HCPCS: 11042

== ENCOUNTER → 2018-06-12 09:20 | Outpatient (CLI) | payer MEDICARE, MEDICAID, SELFPAY ==
--- NOTE | 2018-06-12 | OV.WND_ITS ---
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 Allergies prednisone, penicillin HPI This information was obtained from the patient 06/12/18. Seen by Dr. Cade. The patient does not report increased pain associated with the right 2nd MTPJ non-pressure ulcer since her last visit and she's applying topical gentamicin to treat the superficial wound infection as recommended. 06/05/18. Seen by Dr. Cade. The patient does not report increased pain associated with the right 2nd MTPJ non-pressure ulcer since her last visit and she's applying topical gentamicin to treat the superficial wound infection as recommended. Her healing is significantly delayed due to her advanced scleroderma. 05/28/18. Seen by Dr. Cade. The patient fell yesterday hitting her right 2nd MTPJ non-pressure which she states was very painful but did not result in bleeding or worsening of the ulcer. She's completed her course of doxycycline that was treating the coag negative Staph culture and continues to applying topical gentamicin as recommended. Her ulcers are complicated significantly by her diagnosis of scleroderma and she has a history of very refractory wound healing. 05/15/18. Seen by wOen Martins PA-C. The patient reports that she has an appointment scheduled with Dr. Booth for September of this year. She does not report increased pain from her right MTPJ ulcer and she continues on her doxycycline for an infection of this ulcer. 05/08/18. Seen by Dr. Cade. The patient reports increased pain associated with the right 2nd MTPJ non-pressure ulcer but none regarding the right lateral malleolus non- pressure ulcer. Her ulcers are complicated significantly by her diagnosis of scleroderma and she has a history of very refractory wound healing. 05/01/18. Seen by Dr. Cade. The patient reports continue significant pain associated with the right 2nd MTPJ non-pressure ulcer but none regarding the right lateral malleolus non-pressure ulcer. She's no longer applying topical gentamicin to the sites and covering only with a foam dressing. Her ulcers are complicated significantly by her diagnosis of scleroderma and she has a history of very refractory wound healing. 04/24/18. Seen by Dr. Cade. The patient reports continued pain associated with the chronic right 2nd MTPJ and right lateral malleolus non-pressure ulcers over the past week. Her wound culture from last week showed no growth. 04/17/18. Seen by Dr. Cade. The patient reports persistent pain associated with the chronic right 2nd MTPJ and right lateral malleolus non-pressure ulcers over the past week. Her ulcers are complicated significantly by her diagnosis of scleroderma and she has a history of very refractory wound healing. 04/10/18. Seen by Dr. Cade. The patient does not report significant pain nor drainage associated with the chronic right 2nd MCPJ or right lateral malleolus nonpressure ulcers since her last visit. Her wound culture grew Luh and she's no longer using topical antibiotics. 04/02/18. Seen by Dr. Cade. The patient does not report significant pain nor drainage associated with the chronic right 2nd MCPJ or right lateral malleolus nonpressure ulcers since her last visit. 03/26/18. Seen by Dr. Cade. The patient reports some intermittent pain associated with the chronic right 2nd MCPJ and right lateral malleolus non-pressure ulcers since her last visit. 03/18/18. Seen by Dr. Cade. The patient reports some recurrent pain associated with a recently healed right fourth finger nonpressure ulcer. She is on for drainage from the site however. She also does not report significant drainage or increased pain associated with the right second MCPJ nor right lateral malleolus nonpressure ulcers. 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 03/06/18. Seen by Dr. Cade. The patient reports some continued pain associated with chronic right second MCPJ and right lateral malleolus nonpressure ulcers since her last visit.. She saw her hand surgeon, Dr. Lezama, last week who has discharged her. 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 02/27/18. Seen by Dr. Cade. The patient does not report increased pain or drainage associated with the chronic right fourth finger, right second metacarpal phalangeal joint, her right lower leg nonpressure ulcers since her last visit. 02/12/18. Seen by Dr. Cade. The patient does not report increased pain or drainage associated with the chronic right fourth finger, right second metacarpal phalangeal joint, and right lower leg nonpressure ulcers since her last visit. She's applying topical gentamicin to each as recommended in her right lower leg ulcer grew a coag-negative staph species sensitive to gentamicin. Of note, her condition is complicated by advanced scleroderma. 02/13/18. Seen by Dr. Cade. The patient does not report increased drainage or pain associated with chronic right fourth finger nonpressure ulcer since her last visit. She started on Bactrim at this time however was unable tolerate this due to some nonspecific symptoms of confusion. She also reports a chronic wound over the right hand second MCP joint as well as the right lateral malleolus. She does not report drainage at these sites but states they are painful. 02/06/18. Seen by Dr. Cade. The patient does not report increased drainage nor pain associated with the chronic right 4th finger non-pressure ulcer and she's been started on Bactrim for the recent polymicrobial positive wound culture taken at her last visit. She does not report adverse side effects nor difficulty swallowing the tablets despite her advanced scleroderma which has been the eitiology of the chronic ulcer. 01/30/18. Seen by Dr. Cade. The patient is new to our clinic and presents with a chronic right 4th finger ulcer that's resulted as a complication of her advanced scleroderma. 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 Lezama, orthopedic hand specialist, who's referred her to our clinic for possible HBOT on the background of possible underlying osteomyelitis of the associated phalanx. She had a recent xray that suggested osteomyelitis however her MRI performed today does not confirm this. She reports persistent pain at the ulcer site but does not report significant drainage and is not currently on antibiotics. Past Medical History This information was obtained from the patient Patient has a medical history of: Raynaud's Disease Scleroderma Depression Anxiety Complaints and Symptoms This information was obtained from the patient Patient complains of: General Notes: I have reviewed and concur with the Review of Systems and Past Family Social History documents completed by the clinician, I have reviewed and concur with the Wound Assessment document completed by the clinician Integumentary (Hair/Skin/Nails): Open Sore Musculoskeletal: Deformities, Joint Swelling Prior Wound History: Drainage, Pain Psychiatric: Depression Patient denies complaints or symptoms related to: Constitutional Symptoms (General Health): Chills, Fever Ear/Nose/Mouth/Throat: Hearing Loss / Aid Gastrointestinal (GI): Difficulty Swallowing, Nausea / Vomiting, Stomach/ abdominal pain Hematologic/Lymphatic: Bleeding / Clotting Disorders Neurological: Loss of Protective Sensation Prior Wound History: Bleeding, Erythema Psychiatric: Memory Loss Respiratory: Shortness of Breath OBJECTIVE Constitutional Vital signs reviewed and noted. Confused. Height/Length: 65 in (165.1 cm), Weight: 111.1 lbs (50.5 kgs), BMI: 18.5, Temperature: 97.2 ?F (36.22 ?C), Pulse: 90 bpm, Respiratory Rate: 16 breaths/min, Blood Pressure: 107/71 mmHg, Pulse Oximetry: 94 %. Respiratory: No respiratory distress. Even respirations and without use of accessory muscles.. Integumentary (Hair, Skin) Mild periwound erythema without warmth; improved from previous visit. Refer to appropriate clinician wound documentation for this visit; right 2nd MCPJ ulcer extends to subcut. Wound #2 Right right 2nd knuckle is an acute Full Thickness Autoimmune Wound and has received a status of Not Healed. Subsequent wound encounter measurements are 0.3cm length x 0.3cm width x 0.1cm depth, with an area of 0.09 sq cm and a volume of 0.009 cubic cm. No tunneling has been noted. No sinus tract has been noted. No undermining has been noted. There was no drainage noted. The patient reports a wound pain of level 0/ 10. The wound margin is attached. Wound bed has Yes epithelialization, No eschar, Yes slough, Yes pink, firm granulation. The periwound skin exhibited: Edema, Dry/Scaly, Erythema. The periwound skin did not exhibit: Brawny Induration, Excoriation, Induration, Callus, Crepitus, Fluctuance, Friable, Rash, Moist, Maceration. The temperature of the periwound skin is Warm. Periwound skin does not exhibit signs or symptoms of infection. Local Pulse is N/A. Neurological: Cranial nerves grossly intact with symmetric function normal by informal observation.. ASSESSMENT Active Problems ICD-10 (Encounter Diagnosis) L98.499 - Non-pressure chronic ulcer of skin of other sites with unspecified severity (Encounter Diagnosis) S61.401D - Unspecified open wound of right hand, subsequent encounter (Encounter Diagnosis) L08.9 - Local infection of the skin and subcutaneous tissue, unspecified PROCEDURES Wound #2 Wound #2 (Autoimmune Wound) is located on the right right 2nd knuckle. A skin/subcutaneous tissue level surgical debridement with a total area debrided of 0.12 sq cm was performed by Kevin Cade MD. Subcutaneous was removed along with devitalized tissue: slough. The following instrument(s) were used: curette. Pain control was achieved using 4% Lido. A time out was conducted prior to the start of the procedure. A minimal amount of bleeding was controlled with n/a. The procedure was tolerated well with a pain level of 0 throughout and a pain level of 0 following the procedure. Post Debridement Measurements: 0.3cm length x 0.4cm width x 0.2cm depth; with an area of 0.12 sq cm and a volume of 0.024 cubic cm; Additional Information Muscle fascia or bone removed and sent to pathology?: No PLAN Wound Orders: Wound #2 Right right 2nd knuckle Anesthetic Topical Xylocaine to wound bed. - In clinic. May Use emla cream with dressing changes. Cleanser Cleanse Wound: - With Normal Saline or distilled water. May Shower. - Please cover when you take a shower, avoid water contact directly to the wound. Topical Treatments Antibiotic/Antimicrobial Ointment/Cream. - Gentamicin ointment. Dressings Cover and secure with: - Telfa pad secured with conform gauze and netting. Change Dressing: - Every other day. Additional Orders: Follow-Up Appointments Return Appointment: - - One week. Other information: If you develop fever, chills, increased pain, drainage, redness or swelling please call our office. If after hours, respond to the ER. Should you experience any significant changes in your wound(s) or have any questions regarding your home care instructions please contact the wound center @ [phone]. If after hours, contact your primary care physician or go to the hospital emergency room. Scribing Attestation I attest, as the nurse, that I scribed these orders for the physician. I've reviewed the clinician's documentation and agree with the evaluation and plan as written. In addition, the patient's ulcer demonstrates evidence of non-viable devitalized tissue which will continue to benefit from sharp debridement to help promote granulation and expedite healing. Also, the ulcer continues to slowly improve and she'll continue applying topical gentamicin to the base. Electronic Signature(s) Signed By: Date: Kevin Cade MD 06/13/2018 07:19:13 Entered By: Kevin Cade on 06/12/2018 13:19:21
== END ==
PROVIDERS: PCP Family Medicine; Visit Provider Internal Medicine
DX: L98.499 Non-pressure chronic ulcer of skin of other sites with unspecified severity (principal); S61.401A Unspecified open wound of right hand, initial encounter; L08.9 Local infection of the skin and subcutaneous tissue, unspecified
CPT/HCPCS: 11042

== ENCOUNTER → 2018-06-26 08:39 | Outpatient (CLI) | payer MEDICARE, MEDICAID, SELFPAY ==
--- NOTE | 2018-06-26 | OV.WND_ITS ---
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 Allergies prednisone, penicillin HPI This information was obtained from the patient 06/26/18. Seen by Dr. Cade. The patient does not report increased pain associated with the right 2nd MTPJ non-pressure ulcer since her last visit and she's applying topical gentamicin to treat the superficial wound infection as recommended. 06/12/18. Seen by Dr. Cade. The patient does not report increased pain associated with the right 2nd MTPJ non-pressure ulcer since her last visit and she's applying topical gentamicin to treat the superficial wound infection as recommended. 06/05/18. Seen by Dr. Cade. The patient does not report increased pain associated with the right 2nd MTPJ non-pressure ulcer since her last visit and she's applying topical gentamicin to treat the superficial wound infection as recommended. Her healing is significantly delayed due to her advanced scleroderma. 05/28/18. Seen by Dr. Cade. The patient fell yesterday hitting her right 2nd MTPJ non-pressure which she states was very painful but did not result in bleeding or worsening of the ulcer. She's completed her course of doxycycline that was treating the coag negative Staph culture and continues to applying topical gentamicin as recommended. Her ulcers are complicated significantly by her diagnosis of scleroderma and she has a history of very refractory wound healing. 05/15/18. Seen by Owen Martins PA-C. The patient reports that she has an appointment scheduled with Dr. Booth for September of this year. She does not report increased pain from her right MTPJ ulcer and she continues on her doxycycline for an infection of this ulcer. 05/08/18. Seen by Dr. Cade. The patient reports increased pain associated with the right 2nd MTPJ non-pressure ulcer but none regarding the right lateral malleolus non- pressure ulcer. Her ulcers are complicated significantly by her diagnosis of scleroderma and she has a history of very refractory wound healing. 05/01/18. Seen by Dr. Cade. The patient reports continue significant pain associated with the right 2nd MTPJ non-pressure ulcer but none regarding the right lateral malleolus non-pressure ulcer. She's no longer applying topical gentamicin to the sites and covering only with a foam dressing. Her ulcers are complicated significantly by her diagnosis of scleroderma and she has a history of very refractory wound healing. 04/24/18. Seen by Dr. Cade. The patient reports continued pain associated with the chronic right 2nd MTPJ and right lateral malleolus non-pressure ulcers over the past week. Her wound culture from last week showed no growth. 04/17/18. Seen by Dr. Cade. The patient reports persistent pain associated with the chronic right 2nd MTPJ and right lateral malleolus non-pressure ulcers over the past week. Her ulcers are complicated significantly by her diagnosis of scleroderma and she has a history of very refractory wound healing. 04/10/18. Seen by Dr. Cade. The patient does not report significant pain nor drainage associated with the chronic right 2nd MCPJ or right lateral malleolus nonpressure ulcers since her last visit. Her wound culture grew Luh and she's no longer using topical antibiotics. 04/02/18. Seen by Dr. Cade. The patient does not report significant pain nor drainage associated with the chronic right 2nd MCPJ or right lateral malleolus nonpressure ulcers since her last visit. 03/26/18. Seen by Dr. Cade. The patient reports some intermittent pain associated with the chronic right 2nd MCPJ and right lateral malleolus non-pressure ulcers since her last visit. 03/18/18. Seen by Dr. Cade. The patient reports some recurrent pain associated with a recently healed right fourth finger nonpressure ulcer. She is on for drainage from the site however. She also does not report significant drainage or increased pain associated with the right second MCPJ nor right lateral malleolus nonpressure ulcers. 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 03/06/18. Seen by Dr. Cade. The patient reports some continued pain associated with chronic right second MCPJ and right lateral malleolus nonpressure ulcers since her last visit.. She saw her hand surgeon, Dr. Lezama, last week who has discharged her. 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 02/27/18. Seen by Dr. Cade. The patient does not report increased pain or drainage associated with the chronic right fourth finger, right second metacarpal phalangeal joint, her right lower leg nonpressure ulcers since her last visit. 02/12/18. Seen by Dr. Cade. The patient does not report increased pain or drainage associated with the chronic right fourth finger, right second metacarpal phalangeal joint, and right lower leg nonpressure ulcers since her last visit. She's applying topical gentamicin to each as recommended in her right lower leg ulcer grew a coag-negative staph species sensitive to gentamicin. Of note, her condition is complicated by advanced scleroderma. 02/13/18. Seen by Dr. Cade. The patient does not report increased drainage or pain associated with chronic right fourth finger nonpressure ulcer since her last visit. She started on Bactrim at this time however was unable tolerate this due to some nonspecific symptoms of confusion. She also reports a chronic wound over the right hand second MCP joint as well as the right lateral malleolus. She does not report drainage at these sites but states they are painful. 02/06/18. Seen by Dr. Cade. The patient does not report increased drainage nor pain associated with the chronic right 4th finger non-pressure ulcer and she's been started on Bactrim for the recent polymicrobial positive wound culture taken at her last visit. She does not report adverse side effects nor difficulty swallowing the tablets despite her advanced scleroderma which has been the eitiology of the chronic ulcer. 01/30/18. Seen by Dr. Cade. The patient is new to our clinic and presents with a chronic right 4th finger ulcer that's resulted as a complication of her advanced scleroderma. 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 Lezama, orthopedic hand specialist, who's referred her to our clinic for possible HBOT on the background of possible underlying osteomyelitis of the associated phalanx. She had a recent xray that suggested osteomyelitis however her MRI performed today does not confirm this. She reports persistent pain at the ulcer site but does not report significant drainage and is not currently on antibiotics. Past Medical History This information was obtained from the patient Patient has a medical history of: Raynaud's Disease Scleroderma Depression Anxiety Complaints and Symptoms This information was obtained from the patient Patient complains of: General Notes: I have reviewed and concur with the Review of Systems and Past Family Social History documents completed by the clinician, I have reviewed and concur with the Wound Assessment document completed by the clinician Integumentary (Hair/Skin/Nails): Open Sore Musculoskeletal: Deformities, Joint Swelling Prior Wound History: Drainage, Pain Psychiatric: Depression Patient denies complaints or symptoms related to: Constitutional Symptoms (General Health): Chills, Fever Ear/Nose/Mouth/Throat: Hearing Loss / Aid Gastrointestinal (GI): Difficulty Swallowing, Nausea / Vomiting, Stomach/ abdominal pain Hematologic/Lymphatic: Bleeding / Clotting Disorders Neurological: Loss of Protective Sensation Prior Wound History: Bleeding, Erythema Psychiatric: Memory Loss Respiratory: Shortness of Breath OBJECTIVE Constitutional BP elevated; Low grade fever; Alert and in no distress. Well developed. Alert. Clean appearing.. Height/Length: 65 in (165.1 cm), Weight: 109.5 lbs (49.77 kgs), BMI : 18.2, Temperature: 99.4 ?F (37.44 ?C), Pulse: 104 bpm, Respiratory Rate: 16 breaths/ min, Blood Pressure: 142/88 mmHg, Pulse Oximetry: 95 %. Respiratory: No respiratory distress. Even respirations and without use of accessory muscles.. Integumentary (Hair, Skin) No periwound erythema, warmth, or significant drainage. No periwound rashes appreciated or noted otherwise.. Refer to appropriate clinician wound documentation for this visit; right 2nd MCPJ ulcer extends to subcut. Maceration present in the periwound area. Wound #2 Right 2nd knuckle is an acute Full Thickness Autoimmune Wound and has received a status of Not Healed. Subsequent wound encounter measurements are 0.2cm length x 0.2cm width x 0.1cm depth, with an area of 0.04 sq cm and a volume of 0.004 cubic cm. No tunneling has been noted. No sinus tract has been noted. No undermining has been noted. There was no drainage noted. The patient reports a wound pain of level 0/10. The wound margin is attached. Wound bed has Yes epithelialization, No eschar, Yes slough, No granulation. The periwound skin moisture is normal. The periwound skin exhibited: Edema, Erythema. The periwound skin did not exhibit: Brawny Induration, Excoriation, Induration, Callus, Crepitus, Fluctuance, Friable, Rash. The temperature of the periwound skin is Warm. Periwound skin does not exhibit signs or symptoms of infection. Local Pulse is N/A. Neurological: Cranial nerves grossly intact with symmetric function normal by informal observation.. ASSESSMENT Active Problems ICD-10 (Encounter Diagnosis) L98.499 - Non-pressure chronic ulcer of skin of other sites with unspecified severity (Encounter Diagnosis) S61.401D - Unspecified open wound of right hand, subsequent encounter PROCEDURES Wound #2 Wound #2 (Autoimmune Wound) is located on the right 2nd knuckle. A skin/ subcutaneous tissue level surgical debridement with a total area debrided of 0.09 sq cm was performed by Kevin Cade MD. Subcutaneous was removed along with devitalized tissue: slough. The following instrument(s) were used: curette. Pain control was achieved using 4% Lido. A time out was conducted prior to the start of the procedure. A minimal amount of bleeding was controlled with n/a. The procedure was tolerated well with a pain level of 0 throughout and a pain level of 0 following the procedure. Post Debridement Measurements: 0.3cm length x 0.3cm width x 0.2cm depth; with an area of 0.09 sq cm and a volume of 0.018 cubic cm; Additional Information Muscle fascia or bone removed and sent to pathology?: No PLAN Wound Orders: Wound #2 Right 2nd knuckle Anesthetic Topical Xylocaine to wound bed. - In clinic. May Use emla cream with dressing changes. Cleanser Cleanse Wound: - With Normal Saline or distilled water. May Shower. - Please cover when you take a shower, avoid water contact directly to the wound. Dressings Cover and secure with: - Telfa pad secured with hypafix tape. Change Dressing: - Three times a week or as needed if bandage gets soiled. Additional Orders: Follow-Up Appointments Return Appointment: - - One week. Other information: If you develop fever, chills, increased pain, drainage, redness or swelling please call our office. If after hours, respond to the ER. Should you experience any significant changes in your wound(s) or have any questions regarding your home care instructions please contact the wound center @ [phone]. If after hours, contact your primary care physician or go to the hospital emergency room. Scribing Attestation I attest, as the nurse, that I scribed these orders for the physician. I've reviewed the clinician's documentation and agree with the evaluation and plan as written. In addition, the patient's ulcer demonstrates evidence of non-viable devitalized tissue which will continue to benefit from sharp debridement to help promote granulation and expedite healing. Electronic Signature(s) Signed By: Date: Kevin Cade MD 06/27/2018 13:50:51 Entered By: Kevin Cade on 06/27/2018 13:48:55
== END ==
PROVIDERS: PCP Family Medicine; Visit Provider Internal Medicine
DX: L98.499 Non-pressure chronic ulcer of skin of other sites with unspecified severity (principal); S61.401A Unspecified open wound of right hand, initial encounter
CPT/HCPCS: 11042

== ENCOUNTER → 2018-07-10 08:59 | Outpatient (CLI) | payer MEDICARE, MEDICAID, SELFPAY ==
--- NOTE | 2018-07-10 | OV.WND_ITS ---
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 Allergies prednisone, penicillin HPI This information was obtained from the patient 07/10/18. Seen by Dr. Cade. The patient reports increased pain and swelling associated with the right 2nd MTPJ non-pressure ulcer since hitting is on a door last . The ulcer is significantly complicated by her advanced scleroderma and recurrent infections. 06/26/18. Seen by Dr. Cade. The patient does not report increased pain associated with the right 2nd MTPJ non-pressure ulcer since her last visit and she's applying topical gentamicin to treat the superficial wound infection as recommended. 06/12/18. Seen by Dr. Cade. The patient does not report increased pain associated with the right 2nd MTPJ non-pressure ulcer since her last visit and she's applying topical gentamicin to treat the superficial wound infection as recommended. 06/05/18. Seen by Dr. Cade. The patient does not report increased pain associated with the right 2nd MTPJ non-pressure ulcer since her last visit and she's applying topical gentamicin to treat the superficial wound infection as recommended. Her healing is significantly delayed due to her advanced scleroderma. 05/28/18. Seen by Dr. Cade. The patient fell yesterday hitting her right 2nd MTPJ non-pressure which she states was very painful but did not result in bleeding or worsening of the ulcer. She's completed her course of doxycycline that was treating the coag negative Staph culture and continues to applying topical gentamicin as recommended. Her ulcers are complicated significantly by her diagnosis of scleroderma and she has a history of very refractory wound healing. 05/15/18. Seen by Owen Martins PA-C. The patient reports that she has an appointment scheduled with Dr. Booth for September of this year. She does not report increased pain from her right MTPJ ulcer and she continues on her doxycycline for an infection of this ulcer. 05/08/18. Seen by Dr. Cade. The patient reports increased pain associated with the right 2nd MTPJ non-pressure ulcer but none regarding the right lateral malleolus non- pressure ulcer. Her ulcers are complicated significantly by her diagnosis of scleroderma and she has a history of very refractory wound healing. 05/01/18. Seen by Dr. Cade. The patient reports continue significant pain associated with the right 2nd MTPJ non-pressure ulcer but none regarding the right lateral malleolus non-pressure ulcer. She's no longer applying topical gentamicin to the sites and covering only with a foam dressing. Her ulcers are complicated significantly by her diagnosis of scleroderma and she has a history of very refractory wound healing. 04/24/18. Seen by Dr. Cade. The patient reports continued pain associated with the chronic right 2nd MTPJ and right lateral malleolus non-pressure ulcers over the past week. Her wound culture from last week showed no growth. 04/17/18. Seen by Dr. Cade. The patient reports persistent pain associated with the chronic right 2nd MTPJ and right lateral malleolus non-pressure ulcers over the past week. Her ulcers are complicated significantly by her diagnosis of scleroderma and she has a history of very refractory wound healing. 04/10/18. Seen by Dr. Cade. The patient does not report significant pain nor drainage associated with the chronic right 2nd MCPJ or right lateral malleolus nonpressure ulcers since her last visit. Her wound culture grew Luh and she's no longer using topical antibiotics. 04/02/18. Seen by Dr. Cade. The patient does not report significant pain nor drainage associated with the chronic right 2nd MCPJ or right lateral malleolus nonpressure ulcers since her last visit. 03/26/18. Seen by Dr. Cade. The patient reports some intermittent pain associated with the chronic right 2nd MCPJ and right lateral malleolus non-pressure ulcers since her last visit. 03/18/18. Seen by Dr. Cade. The patient reports some recurrent pain associated with a recently healed right fourth finger nonpressure ulcer. She is on for drainage from the site however. She also does not report significant drainage or increased pain associated with the right second MCPJ nor right lateral malleolus nonpressure ulcers. 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 03/06/18. Seen by Dr. Cade. The patient reports some continued pain associated with chronic right second MCPJ and right lateral malleolus nonpressure ulcers since her last visit.. She saw her hand surgeon, Dr. Lezama, last week who has discharged her. 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 02/27/18. Seen by Dr. Cade. The patient does not report increased pain or drainage associated with the chronic right fourth finger, right second metacarpal phalangeal joint, her right lower leg nonpressure ulcers since her last visit. 02/12/18. Seen by Dr. Cade. The patient does not report increased pain or drainage associated with the chronic right fourth finger, right second metacarpal phalangeal joint, and right lower leg nonpressure ulcers since her last visit. She's applying topical gentamicin to each as recommended in her right lower leg ulcer grew a coag-negative staph species sensitive to gentamicin. Of note, her condition is complicated by advanced scleroderma. 02/13/18. Seen by Dr. Cade. The patient does not report increased drainage or pain associated with chronic right fourth finger nonpressure ulcer since her last visit. She started on Bactrim at this time however was unable tolerate this due to some nonspecific symptoms of confusion. She also reports a chronic wound over the right hand second MCP joint as well as the right lateral malleolus. She does not report drainage at these sites but states they are painful. 02/06/18. Seen by Dr. Cade. The patient does not report increased drainage nor pain associated with the chronic right 4th finger non-pressure ulcer and she's been started on Bactrim for the recent polymicrobial positive wound culture taken at her last visit. She does not report adverse side effects nor difficulty swallowing the tablets despite her advanced scleroderma which has been the eitiology of the chronic ulcer. 01/30/18. Seen by Dr. Cade. The patient is new to our clinic and presents with a chronic right 4th finger ulcer that's resulted as a complication of her advanced scleroderma. 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 Lezama, orthopedic hand specialist, who's referred her to our clinic for possible HBOT on the background of possible underlying osteomyelitis of the associated phalanx. She had a recent xray that suggested osteomyelitis however her MRI performed today does not confirm this. She reports persistent pain at the ulcer site but does not report significant drainage and is not currently on antibiotics. Family History This information was obtained from the patient Diabetes - Father, Paternal Grandparents, Heart Disease - Maternal Grandparents , Lung Disease - Father, Mental Illness - Paternal Grandparents, Other - Mother, Stroke - Maternal Grandparents Social History This information was obtained from the patient Former smoker - 2013, Caffeine Use - 3 cups, Children - 2, Lives in - Private home , Mental health concerns - Depression, anxiety, Occupation - Disabled Past Medical History This information was obtained from the patient Patient has a medical history of: Raynaud's Disease Scleroderma Depression Anxiety Surgical History This information was obtained from the patient Patient has a surgical history of: Right hand digit amputations Complaints and Symptoms This information was obtained from the patient Patient complains of: General Notes: I have reviewed and concur with the Review of Systems and Past Family Social History documents completed by the clinician, I have reviewed and concur with the Wound Assessment document completed by the clinician Integumentary (Hair/Skin/Nails): Open Sore Musculoskeletal: Deformities, Joint Swelling Prior Wound History: Drainage, Pain Psychiatric: Depression Patient denies complaints or symptoms related to: Constitutional Symptoms (General Health): Chills, Fever Ear/Nose/Mouth/Throat: Hearing Loss / Aid Gastrointestinal (GI): Difficulty Swallowing, Nausea / Vomiting, Stomach/ abdominal pain Hematologic/Lymphatic: Bleeding / Clotting Disorders Neurological: Loss of Protective Sensation Prior Wound History: Bleeding, Erythema Psychiatric: Memory Loss Respiratory: Shortness of Breath OBJECTIVE Constitutional BP low; Afebrile; Alert and in no distress. Frail appearing. Height/Length: 65 in (165.1 cm), Weight: 113.9 lbs (51.77 kgs), BMI: 19, Temperature: 98.3 ?F (36.83 ?C), Pulse: 97 bpm, Respiratory Rate: 16 breaths/min, Blood Pressure: 103/72 mmHg, Pulse Oximetry: 98 %. Ears, Nose, Mouth, and Throat: No clinically significant hearing loss on informal examination. Respiratory: No respiratory distress. Even respirations and without use of accessory muscles.. Integumentary (Hair, Skin) Mild periwound erythema without warmth. Refer to appropriate clinician wound documentation for this visit; right 2nd MCPJ ulcer extends to subcut; joint is swollen and tender to debridement. Wound #2 Right 2nd knuckle is an acute Full Thickness Autoimmune Wound and has received a status of Not Healed. Subsequent wound encounter measurements are 0.5cm length x 0.5cm width x 0.1cm depth, with an area of 0.25 sq cm and a volume of 0.025 cubic cm. No tunneling has been noted. No sinus tract has been noted. No undermining has been noted. There was no drainage noted. The patient reports a wound pain of level 0/10. The wound margin is attached. Wound bed has Yes epithelialization, No eschar, Yes slough, No granulation. The periwound skin moisture is normal. The periwound skin exhibited: Edema, Erythema. The periwound skin did not exhibit: Brawny Induration, Excoriation, Induration, Callus, Crepitus, Fluctuance, Friable, Rash. The temperature of the periwound skin is Warm. Periwound skin does not exhibit signs or symptoms of infection. Local Pulse is N/A. General Notes: Covered in dry exudate. Neurological: Cranial nerves grossly intact with symmetric function normal by informal observation.. ASSESSMENT Active Problems ICD-10 (Encounter Diagnosis) L98.499 - Non-pressure chronic ulcer of skin of other sites with unspecified severity (Encounter Diagnosis) S61.401D - Unspecified open wound of right hand, subsequent encounter (Encounter Diagnosis) L08.9 - Local infection of the skin and subcutaneous tissue, unspecified PROCEDURES Wound #2 Wound #2 (Autoimmune Wound) is located on the right 2nd knuckle. A skin/ subcutaneous tissue level surgical debridement with a total area debrided of 0.25 sq cm was performed by Kevin Cade MD. Subcutaneous was removed along with devitalized tissue: slough. The following instrument(s) were used: curette. Pain control was achieved using 4% Lido. A time out was conducted prior to the start of the procedure. A minimal amount of bleeding was controlled with n/a. The procedure was tolerated well with a pain level of 0 throughout and a pain level of 0 following the procedure. Post Debridement Measurements: 0.5cm length x 0.5cm width x 0.2cm depth; with an area of 0.25 sq cm and a volume of 0.05 cubic cm; Additional Information Muscle fascia or bone removed and sent to pathology?: No PLAN Wound Orders: Wound #2 Right 2nd knuckle Anesthetic Topical Xylocaine to wound bed. - In clinic. May Use emla cream with dressing changes. Cleanser Cleanse Wound: - With Normal Saline or distilled water. May Shower. - Please cover when you take a shower, avoid water contact directly to the wound. Topical Treatments Antibiotic/Antimicrobial Ointment/Cream. - Gentamicin ointment Dressings Cover and secure with: - Telfa pad secured with hypafix tape. Change Dressing: - Every other day Additional Orders: Follow-Up Appointments Return Appointment: - - One week. Other information: If you develop fever, chills, increased pain, drainage, redness or swelling please call our office. If after hours, respond to the ER. Should you experience any significant changes in your wound(s) or have any questions regarding your home care instructions please contact the wound center @ [phone]. If after hours, contact your primary care physician or go to the hospital emergency room. Scribing Attestation I attest, as the nurse, that I scribed these orders for the physician. Laboratory: Culture Wound - Right [facility] knuckle #2 General Notes: We will call you if there is any need of antibiotics I've reviewed the clinician's documentation and agree with the evaluation and plan as written. In addition, the patient's ulcer demonstrates evidence of non-viable devitalized tissue which will continue to benefit from sharp debridement to help promote granulation and expedite healing. Also, I've cultured the right hand ulcer and will start treating what appears to be a superficial infection again with topical gentamicin. Electronic Signature(s) Signed By: Date: Kevin Cade MD 07/11/2018 06:27:44 Entered By: Kevin Cade on 07/10/2018 13:18:46
== END ==
PROVIDERS: PCP Family Medicine; Visit Provider Internal Medicine
DX: L98.499 Non-pressure chronic ulcer of skin of other sites with unspecified severity (principal); S61.401A Unspecified open wound of right hand, initial encounter; L08.9 Local infection of the skin and subcutaneous tissue, unspecified; I73.00 Raynaud's syndrome without gangrene
CPT/HCPCS: 11042; 87070; 87075; 87077; 87147; 87186; 87205

== ENCOUNTER → 2018-07-17 08:54 | Outpatient (CLI) | payer MEDICARE, MEDICAID, SELFPAY | PROVIDERS: PCP Family Medicine; Visit Provider Internal Medicine | DX: L98.499 Non-pressure chronic ulcer of skin of other sites with unspecified severity (principal); S61.401A Unspecified open wound of right hand, initial encounter | CPT/HCPCS: 11042 ==

== ENCOUNTER → 2018-08-14 09:13 | Outpatient (CLI) | payer MEDICARE, MEDICAID, SELFPAY ==
--- NOTE | 2018-08-14 | OV.WND_ITS ---
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 Allergies prednisone, penicillin HPI This information was obtained from the patient 08/14/18. Seen by Dr. Cade. The patient does not report increased pain associated with the right 2nd MTPJ non-pressure ulcer since her last visit. However she's quite tearful today and states she's been suicidal since her last visit and in part feels her depression was being made worse by medications she was on but now has stopped taking. She's being checked on regularly by a police worker and states she's starting to feel better and does not have a plan to commit suicide currently. She's also going to visit her PCP today to discuss this issue but does not currently have a mental health counselor. 07/17/18. Seen by Dr. Cade. The patient does not report increased pain associated with the right 2nd MTPJ non-pressure ulcer since her last visit. 07/10/18. Seen by Dr. Cade. The patient reports increased pain and swelling associated with the right 2nd MTPJ non-pressure ulcer since hitting is on a door last . The ulcer is significantly complicated by her advanced scleroderma and recurrent infections. 06/26/18. Seen by Dr. Cade. The patient does not report increased pain associated with the right 2nd MTPJ non-pressure ulcer since her last visit and she's applying topical gentamicin to treat the superficial wound infection as recommended. 06/12/18. Seen by Dr. Cade. The patient does not report increased pain associated with the right 2nd MTPJ non-pressure ulcer since her last visit and she's applying topical gentamicin to treat the superficial wound infection as recommended. 06/05/18. Seen by Dr. Cade. The patient does not report increased pain associated with the right 2nd MTPJ non-pressure ulcer since her last visit and she's applying topical gentamicin to treat the superficial wound infection as recommended. Her healing is significantly delayed due to her advanced scleroderma. 05/28/18. Seen by Dr. Cade. The patient fell yesterday hitting her right 2nd MTPJ non-pressure which she states was very painful but did not result in bleeding or worsening of the ulcer. She's completed her course of doxycycline that was treating the coag negative Staph culture and continues to applying topical gentamicin as recommended. Her ulcers are complicated significantly by her diagnosis of scleroderma and she has a history of very refractory wound healing. 05/15/18. Seen by Owen Martins PA-C. The patient reports that she has an appointment scheduled with Dr. Booth for September of this year. She does not report increased pain from her right MTPJ ulcer and she continues on her doxycycline for an infection of this ulcer. 05/08/18. Seen by Dr. Cade. The patient reports increased pain associated with the right 2nd MTPJ non-pressure ulcer but none regarding the right lateral malleolus non- pressure ulcer. Her ulcers are complicated significantly by her diagnosis of scleroderma and she has a history of very refractory wound healing. 05/01/18. Seen by Dr. Cade. The patient reports continue significant pain associated with the right 2nd MTPJ non-pressure ulcer but none regarding the right lateral malleolus non-pressure ulcer. She's no longer applying topical gentamicin to the sites and covering only with a foam dressing. Her ulcers are complicated significantly by her diagnosis of scleroderma and she has a history of very refractory wound healing. 04/24/18. Seen by Dr. Cade. The patient reports continued pain associated with the chronic right 2nd MTPJ and right lateral malleolus non-pressure ulcers over the past week. Her wound culture from last week showed no growth. 04/17/18. Seen by Dr. Cade. The patient reports persistent pain associated with the chronic right 2nd MTPJ and right lateral malleolus non-pressure ulcers over the past week. Her ulcers are complicated significantly by her diagnosis of scleroderma and she has a history of very refractory wound healing. 04/10/18. Seen by Dr. Cade. The patient does not report significant pain nor drainage associated with the chronic right 2nd MCPJ or right lateral malleolus nonpressure ulcers since her last visit. Her wound culture grew Luh and she's no longer using topical antibiotics. 04/02/18. Seen by Dr. Cade. The patient does not report significant pain nor drainage associated with the chronic right 2nd MCPJ or right lateral malleolus nonpressure ulcers since her last visit. 03/26/18. Seen by Dr. Cade. The patient reports some intermittent pain associated with the chronic right 2nd MCPJ and right lateral malleolus non-pressure ulcers since her last visit. 03/18/18. Seen by Dr. Cade. The patient reports some recurrent pain associated with a recently healed right fourth finger nonpressure ulcer. She is on for drainage from the site however. She also does not report significant drainage or increased pain associated with the right second MCPJ nor right lateral malleolus nonpressure ulcers. 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 03/06/18. Seen by Dr. Cade. The patient reports some continued pain associated with chronic right second MCPJ and right lateral malleolus nonpressure ulcers since her last visit.. She saw her hand surgeon, Dr. Lezama, last week who has discharged her. 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 02/27/18. Seen by Dr. Cade. The patient does not report increased pain or drainage associated with the chronic right fourth finger, right second metacarpal phalangeal joint, her right lower leg nonpressure ulcers since her last visit. 02/12/18. Seen by Dr. Cade. The patient does not report increased pain or drainage associated with the chronic right fourth finger, right second metacarpal phalangeal joint, and right lower leg nonpressure ulcers since her last visit. She's applying topical gentamicin to each as recommended in her right lower leg ulcer grew a coag-negative staph species sensitive to gentamicin. Of note, her condition is complicated by advanced scleroderma. 02/13/18. Seen by Dr. Cade. The patient does not report increased drainage or pain associated with chronic right fourth finger nonpressure ulcer since her last visit. She started on Bactrim at this time however was unable tolerate this due to some nonspecific symptoms of confusion. She also reports a chronic wound over the right hand second MCP joint as well as the right lateral malleolus. She does not report drainage at these sites but states they are painful. 02/06/18. Seen by Dr. Cade. The patient does not report increased drainage nor pain associated with the chronic right 4th finger non-pressure ulcer and she's been started on Bactrim for the recent polymicrobial positive wound culture taken at her last visit. She does not report adverse side effects nor difficulty swallowing the tablets despite her advanced scleroderma which has been the eitiology of the chronic ulcer. 01/30/18. Seen by Dr. Cade. The patient is new to our clinic and presents with a chronic right 4th finger ulcer that's resulted as a complication of her advanced scleroderma. 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 Lezama, orthopedic hand specialist, who's referred her to our clinic for possible HBOT on the background of possible underlying osteomyelitis of the associated phalanx. She had a recent xray that suggested osteomyelitis however her MRI performed today does not confirm this. She reports persistent pain at the ulcer site but does not report significant drainage and is not currently on antibiotics. Family History This information was obtained from the patient Diabetes - Father, Paternal Grandparents, Heart Disease - Maternal Grandparents , Lung Disease - Father, Mental Illness - Paternal Grandparents, Other - Mother, Stroke - Maternal Grandparents Social History This information was obtained from the patient Former smoker - 2012, Caffeine Use - 3 cups, Children - 2, Lives in - Private home , Mental health concerns - Depression, anxiety, Occupation - Disabled Past Medical History This information was obtained from the patient Patient has a medical history of: Raynaud's Disease Scleroderma Depression Anxiety Surgical History This information was obtained from the patient Patient has a surgical history of: Right hand digit amputations Complaints and Symptoms This information was obtained from the patient Patient complains of: General Notes: I have reviewed and concur with the Review of Systems and Past Family Social History documents completed by the clinician, I have reviewed and concur with the Wound Assessment document completed by the clinician Integumentary (Hair/Skin/Nails): Open Sore Musculoskeletal: Deformities, Joint Swelling Prior Wound History: Drainage, Pain Psychiatric: Depression Patient denies complaints or symptoms related to: Constitutional Symptoms (General Health): Chills, Fever Ear/Nose/Mouth/Throat: Hearing Loss / Aid Gastrointestinal (GI): Difficulty Swallowing, Nausea / Vomiting, Stomach/ abdominal pain Hematologic/Lymphatic: Bleeding / Clotting Disorders Neurological: Loss of Protective Sensation Prior Wound History: Bleeding, Erythema Psychiatric: Memory Loss Respiratory: Shortness of Breath OBJECTIVE Constitutional Vital signs reviewed and noted. Frail appearing. Height/Length: 65 in (165.1 cm) , Weight: 113.9 lbs (51.77 kgs), BMI: 19, Temperature: 98.3 ?F (36.83 ?C), Pulse: 1032 bpm , Respiratory Rate: 16 breaths/min, Blood Pressure: 116/80 mmHg, Pulse Oximetry: 100 %. Ears, Nose, Mouth, and Throat: No clinically significant hearing loss on informal examination. Respiratory: No respiratory distress. Even respirations and without use of accessory muscles.. Integumentary (Hair, Skin) Refer to appropriate clinician wound documentation for this visit. Wound #2 Right 2nd knuckle is an acute Full Thickness Autoimmune Wound and has received a status of Not Healed. Subsequent wound encounter measurements are 0.1cm length x 0.1cm width x 0.1cm depth, with an area of 0.01 sq cm and a volume of 0.001 cubic cm. No tunneling has been noted. No sinus tract has been noted. No undermining has been noted. There was no drainage noted. The patient reports a wound pain of level 0/10. The wound margin is attached. Wound bed has Yes epithelialization, No eschar, Yes slough, No granulation. The periwound skin moisture is normal. The periwound skin exhibited: Edema, Erythema. The periwound skin did not exhibit: Brawny Induration, Excoriation, Induration, Callus, Crepitus, Fluctuance, Friable, Rash, Atrophie Juanita, Cyanosis, Ecchymosis, Hemosiderosis , Pallor, Rubor. The temperature of the periwound skin is Warm. Periwound skin does not exhibit signs or symptoms of infection. Local Pulse is N/A. General Notes: Covered in slough Neurological: Cranial nerves grossly intact with symmetric function normal by informal observation.. Psychiatric: Normal affect. Low mood. Tearful but conversant. ASSESSMENT Active Problems ICD-10 (Encounter Diagnosis) L98.499 - Non-pressure chronic ulcer of skin of other sites with unspecified severity (Encounter Diagnosis) S61.401D - Unspecified open wound of right hand, subsequent encounter (Encounter Diagnosis) F33.1 - Major depressive disorder, recurrent, moderate PROCEDURES Wound #2 Wound #2 (Autoimmune Wound) is located on the right 2nd knuckle. A non-selective mechanical debridement with a total area debrided of 0.01 sq cm was performed by Kevin Cade MD. Non-viable tissue was removed.The procedure was tolerated well with a pain level of 0 throughout and a pain level of 0 following the procedure. Post Debridement Measurements: 0.1cm length x 0.1cm width x 0.1cm depth; with an area of 0.01 sq cm and a volume of 0.001 cubic cm; PLAN Wound Orders: Wound #2 Right 2nd knuckle Anesthetic Topical Xylocaine to wound bed. - In clinic. May Use emla cream with dressing changes. Cleanser Cleanse Wound: - With Normal Saline or distilled water. May Shower. - Please cover when you take a shower, avoid water contact directly to the wound. Additional Orders: Follow-Up Appointments Return Appointment: - - Two weeks Other information: If you develop fever, chills, increased pain, drainage, redness or swelling please call our office. If after hours, respond to the ER. Should you experience any significant changes in your wound(s) or have any questions regarding your home care instructions please contact the wound center @ [phone]. If after hours, contact your primary care physician or go to the hospital emergency room. Scribing Attestation I attest, as the nurse, that I scribed these orders for the physician. I've reviewed the clinician's documentation and agree with the evaluation and plan as written. Also, I had a lengthy discussion regarding the patient's depression and recent suicidal thoughts and again she states her mood is starting to improve and she's not current considering suicide or harming herself. She's been encouraged to see her PCP after our appointment as scheduled and to request referral to a mental health counselor as soon as possible. Regarding her ulcer, it's now nearly healed and we'll see her again in 2 weeks. Greater than 25 minutes were spent [id number] with the patient during this encounter and over 50% of that time was spent on counseling and coordination of care. Electronic Signature(s) Signed By: Date: Kevin Cade MD 08/15/2018 06:42:26 Entered By: Kevin Cade on 08/15/2018 06:41:29
== END ==
PROVIDERS: PCP Family Medicine; Visit Provider Internal Medicine
DX: L98.499 Non-pressure chronic ulcer of skin of other sites with unspecified severity (principal); S61.401D Unspecified open wound of right hand, subsequent encounter; F33.1 Major depressive disorder, recurrent, moderate
CPT/HCPCS: 99213

== ENCOUNTER → 2018-08-28 08:46 | Outpatient (CLI) | payer MEDICARE, MEDICAID, SELFPAY ==
--- NOTE | 2018-08-28 | OV.WND_ITS ---
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 Allergies prednisone, penicillin HPI This information was obtained from the patient 08/28/18. Seen by Dr. Cade. The patient does not report increased pain associated with the right 2nd MTPJ non-pressure ulcer since her last visit however she does report some drainage this morning when she removed some overlying skin. The ulcer is significantly complicated by her advanced scleroderma and recurrent infections. 08/14/18. Seen by Dr. Cade. The patient does not report increased pain associated with the right 2nd MTPJ non-pressure ulcer since her last visit. However she's quite tearful today and states she's been suicidal since her last visit and in part feels her depression was being made worse by medications she was on but now has stopped taking. She's being checked on regularly by a police captain and states she's starting to feel better and does not have a plan to commit suicide currently. She's also going to visit her PCP today to discuss this issue but does not currently have a mental health counselor. 07/17/18. Seen by Dr. Cade. The patient does not report increased pain associated with the right 2nd MTPJ non-pressure ulcer since her last visit. 07/10/18. Seen by Dr. Cade. The patient reports increased pain and swelling associated with the right 2nd MTPJ non-pressure ulcer since hitting is on a door last . The ulcer is significantly complicated by her advanced scleroderma and recurrent infections. 06/26/18. Seen by Dr. Cade. The patient does not report increased pain associated with the right 2nd MTPJ non-pressure ulcer since her last visit and she's applying topical gentamicin to treat the superficial wound infection as recommended. 06/12/18. Seen by Dr. Cade. The patient does not report increased pain associated with the right 2nd MTPJ non-pressure ulcer since her last visit and she's applying topical gentamicin to treat the superficial wound infection as recommended. 06/05/18. Seen by Dr. Cade. The patient does not report increased pain associated with the right 2nd MTPJ non-pressure ulcer since her last visit and she's applying topical gentamicin to treat the superficial wound infection as recommended. Her healing is significantly delayed due to her advanced scleroderma. 05/28/18. Seen by Dr. Cade. The patient fell yesterday hitting her right 2nd MTPJ non-pressure which she states was very painful but did not result in bleeding or worsening of the ulcer. She's completed her course of doxycycline that was treating the coag negative Staph culture and continues to applying topical gentamicin as recommended. Her ulcers are complicated significantly by her diagnosis of scleroderma and she has a history of very refractory wound healing. 05/15/18. Seen by Owen Martins PA-C. The patient reports that she has an appointment scheduled with Dr. Booth for September of this year. She does not report increased pain from her right MTPJ ulcer and she continues on her doxycycline for an infection of this ulcer. 05/08/18. Seen by Dr. Cade. The patient reports increased pain associated with the right 2nd MTPJ non-pressure ulcer but none regarding the right lateral malleolus non- pressure ulcer. Her ulcers are complicated significantly by her diagnosis of scleroderma and she has a history of very refractory wound healing. 05/01/18. Seen by Dr. Cade. The patient reports continue significant pain associated with the right 2nd MTPJ non-pressure ulcer but none regarding the right lateral malleolus non-pressure ulcer. She's no longer applying topical gentamicin to the sites and covering only with a foam dressing. Her ulcers are complicated significantly by her diagnosis of scleroderma and she has a history of very refractory wound healing. 04/24/18. Seen by Dr. Cade. The patient reports continued pain associated with the chronic right 2nd MTPJ and right lateral malleolus non-pressure ulcers over the past week. Her wound culture from last week showed no growth. 04/17/18. Seen by Dr. Cade. The patient reports persistent pain associated with the chronic right 2nd MTPJ and right lateral malleolus non-pressure ulcers over the past week. Her ulcers are complicated significantly by her diagnosis of scleroderma and she has a history of very refractory wound healing. 04/10/18. Seen by Dr. Cade. The patient does not report significant pain nor drainage associated with the chronic right 2nd MCPJ or right lateral malleolus nonpressure ulcers since her last visit. Her wound culture grew Luh and she's no longer using topical antibiotics. 04/02/18. Seen by Dr. Cade. The patient does not report significant pain nor drainage associated with the chronic right 2nd MCPJ or right lateral malleolus nonpressure ulcers since her last visit. 03/26/18. Seen by Dr. Cade. The patient reports some intermittent pain associated with the chronic right 2nd MCPJ and right lateral malleolus non-pressure ulcers since her last visit. 03/18/18. Seen by Dr. Cade. The patient reports some recurrent pain associated with a recently healed right fourth finger nonpressure ulcer. She is on for drainage from the site however. She also does not report significant drainage or increased pain associated with the right second MCPJ nor right lateral malleolus nonpressure ulcers. 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 03/06/18. Seen by Dr. Cade. The patient reports some continued pain associated with chronic right second MCPJ and right lateral malleolus nonpressure ulcers since her last visit.. She saw her hand surgeon, Dr. Lezama, last week who has discharged her. 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 02/27/18. Seen by Dr. Cade. The patient does not report increased pain or drainage associated with the chronic right fourth finger, right second metacarpal phalangeal joint, her right lower leg nonpressure ulcers since her last visit. 02/12/18. Seen by Dr. Cade. The patient does not report increased pain or drainage associated with the chronic right fourth finger, right second metacarpal phalangeal joint, and right lower leg nonpressure ulcers since her last visit. She's applying topical gentamicin to each as recommended in her right lower leg ulcer grew a coag-negative staph species sensitive to gentamicin. Of note, her condition is complicated by advanced scleroderma. 02/13/18. Seen by Dr. Cade. The patient does not report increased drainage or pain associated with chronic right fourth finger nonpressure ulcer since her last visit. She started on Bactrim at this time however was unable tolerate this due to some nonspecific symptoms of confusion. She also reports a chronic wound over the right hand second MCP joint as well as the right lateral malleolus. She does not report drainage at these sites but states they are painful. 02/06/18. Seen by Dr. Cade. The patient does not report increased drainage nor pain associated with the chronic right 4th finger non-pressure ulcer and she's been started on Bactrim for the recent polymicrobial positive wound culture taken at her last visit. She does not report adverse side effects nor difficulty swallowing the tablets despite her advanced scleroderma which has been the eitiology of the chronic ulcer. 01/30/18. Seen by Dr. Cade. The patient is new to our clinic and presents with a chronic right 4th finger ulcer that's resulted as a complication of her advanced scleroderma. 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 Lezama, orthopedic hand specialist, who's referred her to our clinic for possible HBOT on the background of possible underlying osteomyelitis of the associated phalanx. She had a recent xray that suggested osteomyelitis however her MRI performed today does not confirm this. She reports persistent pain at the ulcer site but does not report significant drainage and is not currently on antibiotics. Past Medical History This information was obtained from the patient Patient has a medical history of: Raynaud's Disease Scleroderma Depression Anxiety Complaints and Symptoms This information was obtained from the patient Patient complains of: General Notes: I have reviewed and concur with the Review of Systems and Past Family Social History documents completed by the clinician, I have reviewed and concur with the Wound Assessment document completed by the clinician Integumentary (Hair/Skin/Nails): Open Sore Musculoskeletal: Deformities, Joint Swelling Prior Wound History: Drainage, Pain Psychiatric: Depression Patient denies complaints or symptoms related to: Constitutional Symptoms (General Health): Chills, Fever Ear/Nose/Mouth/Throat: Hearing Loss / Aid Gastrointestinal (GI): Difficulty Swallowing, Nausea / Vomiting, Stomach/ abdominal pain Hematologic/Lymphatic: Bleeding / Clotting Disorders Neurological: Loss of Protective Sensation Prior Wound History: Bleeding, Erythema Psychiatric: Memory Loss Respiratory: Shortness of Breath OBJECTIVE Constitutional BP normal; Low grade fever; Alert and in no distress. Frail appearing. Height/ Length: 65 in (165.1 cm), Weight: 113.9 lbs (51.77 kgs), BMI: 19, Temperature: 99.8 ?F (37.67 ?C), Pulse: 96 bpm, Respiratory Rate: 16 breaths/min, Blood Pressure: 110/77 mmHg. Integumentary (Hair, Skin) Mild periwound erythema without warmth. Refer to appropriate clinician wound documentation for this visit. Wound #2 Right 2nd knuckle is an acute Full Thickness Autoimmune Wound and has received a status of Not Healed. Subsequent wound encounter measurements are 0.1cm length x 0.1cm width x 0.1cm depth, with an area of 0.01 sq cm and a volume of 0.001 cubic cm. No tunneling has been noted. No sinus tract has been noted. No undermining has been noted. There was no drainage noted. The patient reports a wound pain of level 0/10. The wound margin is attached. Wound bed has Yes epithelialization, No eschar, Yes slough, No granulation. The periwound skin moisture is normal. The periwound skin exhibited: Edema, Erythema. The periwound skin did not exhibit: Brawny Induration, Excoriation, Induration, Callus, Crepitus, Fluctuance, Friable, Rash, Atrophie Juanita, Cyanosis, Ecchymosis, Hemosiderosis , Pallor, Rubor. The temperature of the periwound skin is Warm. Periwound skin does not exhibit signs or symptoms of infection. Local Pulse is N/A. Neurological: Cranial nerves grossly intact with symmetric function normal by informal observation.. ASSESSMENT Active Problems ICD-10 (Encounter Diagnosis) L98.499 - Non-pressure chronic ulcer of skin of other sites with unspecified severity (Encounter Diagnosis) S61.401D - Unspecified open wound of right hand, subsequent encounter (Encounter Diagnosis) I73.01 - Raynaud's syndrome with gangrene PLAN Wound Orders: Wound #2 Right 2nd knuckle Anesthetic Topical Xylocaine to wound bed. - In clinic. May Use emla cream with dressing changes. Cleanser Cleanse Wound: - With Normal Saline or distilled water. May Shower. - Please cover when you take a shower, avoid water contact directly to the wound. Additional Orders: Follow-Up Appointments Return Appointment: - - Two weeks Other information: If you develop fever, chills, increased pain, drainage, redness or swelling please call our office. If after hours, respond to the ER. Should you experience any significant changes in your wound(s) or have any questions regarding your home care instructions please contact the wound center @ [phone]. If after hours, contact your primary care physician or go to the hospital emergency room. Scribing Attestation I attest, as the nurse, that I scribed these orders for the physician. I've reviewed the clinician's documentation and agree with the evaluation and plan as written. Electronic Signature(s) Signed By: Date: Kevin Cade MD 08/29/2018 08:14:12 Entered By: Kevin Cade on 08/29/2018 08:11:41
== END ==
PROVIDERS: PCP Family Medicine; Visit Provider Internal Medicine
DX: L98.499 Non-pressure chronic ulcer of skin of other sites with unspecified severity (principal); S61.401D Unspecified open wound of right hand, subsequent encounter; L94.0 Localized scleroderma [morphea]; I73.00 Raynaud's syndrome without gangrene
CPT/HCPCS: 99212

== ENCOUNTER → 2018-09-11 08:37 | Outpatient (CLI) | payer MEDICARE, MEDICAID, SELFPAY | PROVIDERS: PCP Family Medicine; Visit Provider Family Medicine | DX: M34.0 Progressive systemic sclerosis (principal) | CPT/HCPCS: 99211; 99212 ==

== ENCOUNTER → 2019-07-04 06:38 | Outpatient (CLI) | payer MEDICARE, OTHER, MEDICAID, SELFPAY ==
--- NOTE | 2019-07-04 06:41 | DI.ECHO.S_ITS ---
[facility]---------+ [facility] +---------+ : : [address] : : : : [id number] : : : : Phone: [phone]+ Echocardiogram Report + + :Name: FÁTIMA BAKER Study Date: 07/04/2019 Height: 65 in : :[facility] Exam Location: [facility] Weight: 103 lb : : Gender: Female BSA: 1.5 m2 : :: 1970 Age: 48 yrs BP: 115/70 mmHg: :Reason For Study: Dyspnea : :Ordering Physician: Dr. Coulter : :Edvin Performed By: Daria Page : :Referring: YURI NAGY : + + Interpretation Summary Normal left ventricle size with ejection fraction 60-65%. Moderately dilated left atrium. Mild aortic valve sclerosis. Mild mitral regurgitation. Comparison is made with the echocardiogram of 07/17/2017, there has been no significant change. Procedure: A two-dimensional transthoracic echocardiogram with color flow and Doppler was performed. The study quality was technically adequate. Comparison is made with the echocardiogram of 07/17/2017. The patient was in normal sinus rhythm during the exam. Left Ventricle: The left ventricle is normal in size. There is normal left ventricular wall thickness. The ejection fraction is estimated to be 60-65%. There are no focal wall motion abnormalities. Diastolic parameters suggest probable normal left ventricular diastolic function and normal filling pressures. Right Ventricle: The right ventricle is normal in size and function. Atria: The left atrium is moderately dilated. Right atrial size is normal. There is no Doppler evidence for an interatrial shunt. Mitral Valve: The mitral valve is normal in structure and function. There is mild mitral regurgitation. Aortic Valve: The aortic valve is trileaflet. The aortic valve opens well. There is mild aortic valve sclerosis. No aortic regurgitation is present. Tricuspid Valve: The tricuspid valve is normal in structure and function. There is a trace or physiologic amount of tricuspid regurgitation. Pulmonary artery pressures cannot be estimated because of the lack of a measurable TR jet velocity. Pulmonic Valve: The pulmonic valve is not well visualized. Great Vessels: The aortic root is normal size. The ascending aorta could not be visualized. The pulmonary is not well visualized. The IVC is of normal diameter and collapses greater than 50% with a sniff. This suggests a low right atrial pressure of 3 mm Hg. Pericardium/ Pleura There is no pericardial effusion. There is no pleural effusion. MMode/2D Measurements & Calculations LVIDd: 3.9 cm Ao root diam: 3.1 cm LVIDs: 3.1 cm FS: 21.4 % EPSS: 0.43 cm IVSd: 0.71 cm LVPWd: 0.80 cm LV ramos. diameter/BSA (cm/m^2): 2.6 LV sys. diameter/BSA (cm/m^2): 2.1 LA A2 area: 18.6 cm2 RA long axis: 3.7 cm LA A4 area: 17.7 cm2 RA area: 12.6 cm2 LA length (vol): 4.5 cm RA vol: 36.2 ml LA vol: 62.0 ml RA : 24.3 ml/m2 LA vol index: 41.6 ml/m2 IVC diam: 1.9 cm RVD1 (basal): 3.0 cm RVD2 (mid): 3.3 cm TAPSE: 2.0 cm Doppler Measurements & Calculations MV E max peter: 70.6 cm/sec PA V2 max: 78.4 cm/sec MV A max peter: 63.7 cm/sec PA V2 mean: 59.1 cm/sec MV E/A: 1.1 PA mean P.5 mmHg Med Peak E' Peter: 9.6 cm/sec PA Accel Time: 0.12 sec E/E' med: 7.4 Lat Peak E' Peter: 9.9 cm/sec E/E' lat: 7.1 E/e' average: 7.2 MV dec time: 0.11 sec MV P1/2t: 33.5 msec MV P1/2t max peter: 71.6 cm/sec MVA(P1/2t): 6.6 cm2 Electronically signed by: Liban Moura on Reading Physician:07/04/2019 04:07 PM
== END ==
PROVIDERS: PCP Family Medicine; Visit Provider Family Medicine
DX: I35.8 Other nonrheumatic aortic valve disorders (principal); I34.0 Nonrheumatic mitral (valve) insufficiency; I51.7 Cardiomegaly; R06.00 Dyspnea, unspecified
CPT/HCPCS: 93306

== ENCOUNTER 2020-08-26 15:55 | Emergency (ER) | payer MEDICARE, MEDICAID, SELFPAY ==
[2020-08-26] VITALS (9 sets, daily range): BP systolic 113–149; BP diastolic 61–79; PULSE 91–126; RESP 16–20; TEMP 36.9; O2SAT 96–99; BMI 16.6
--- NOTE | 2020-08-26 16:22 | DI.RAD.S_ITS ---
PROCEDURE: XR FINGER LT MIN 2V INDICATIONS: left thumb infection TECHNIQUE: AP hand, 2 views of the 1st finger(s) acquired. COMPARISON: None. FINDINGS: Bones: There are erosive changes within the distal 1st phalanx particularly within the mid and distal portions. Soft tissues: No suspicious soft tissue calcifications. 1st digit soft tissue edema is present. IMPRESSION: Erosive distal 1st phalanx changes as above suggestive of osteomyelitis. Dictated by: Deysi Rizzo M.D. on 08/26/2020 at 16:40 Approved by: Deysi Rizzo M.D. on 08/26/2020 at 16:41
[2020-08-26 16:37] LABS: Basophils Absolute Auto 100 /uL (0-100); Eosinophils Absolute Auto 100 /uL (0-450); Eosinophils Percent Auto 1.1 % (2-4); Mean Corpuscular HGB Conc 32.5 % (30-36); Monocytes Absolute Auto 600 /uL (0-900)
[2020-08-26 16:42] LABS: Add Manual Diff / Slide Review NO; Basophils Percent Auto 0.7 % (0-2); Hematocrit 30.9 % (36-46); Lymphocytes Absolute Auto 2500 /uL (1100-4500); Lymphocytes Percent Auto 20.8 % (25-40); Mean Corpuscular Hemoglobin 28.8 PG (26-34); Mean Corpuscular Volume 88.8 fL (80-100); Monocytes Percent Auto 5.1 % (3-14); Neutrophils Absolute Auto 8800 /uL (1500-7000); Neutrophils Percent Auto 72.3 % (50-75); Platelet Count 756 X10^3/uL (150-400); Red Blood Cell Count 3.48 X10^6/uL (4.0-5.2); Red Cell Distribution Width 14.7 % (11.6-14.8); White Blood Cell Count 12.2 X10^3/uL (4.5-11.0)
[2020-08-26 16:43] LABS: Lactate (Lactic Acid) 0.7 mmol/L (0.7-2.1)
[2020-08-26 16:47] LABS: Alanine Aminotransferase 40 IU/L (<35); Albumin 4.1 g/dL (3.5-5.0); Albumin Globulin Ratio 1.1 (1.0-2.8); Alkaline Phosphatase 88 U/L (38-126); Aspartate Aminotransferase 35 IU/L (14-36); BUN Creatinine Ratio 11.8 (6-22); Bilirubin Total 0.2 mg/dL (0.2-1.3); Blood Urea Nitrogen 9 mg/dL (7-17); C-Reactive Protein Quant 1.7 mg/dL (<1.0); Calcium 8.8 mg/dL (8.4-10.2); Carbon Dioxide 33 mmol/L (22-32); Chloride 98 mmol/L (98-107); Estimated Glomerular Filt Rate > 60.0 mL/min (>60); Globulin 3.6 g/dL (1.7-4.1); Glucose 147 mg/dL (70-100); HEMOLYSIS < 15 (0-50); Potassium 3.6 mmol/L (3.4-5.1); Sodium 136 mmol/L (137-145); Total Protein 7.7 g/dL (6.3-8.2)
--- NOTE | 2020-08-26 16:57 | ED.SKABFB ---
HPI - Skin/Abscess/Foreign Bdy <Karine Ramos, STONE DRILLER-BC - Last Filed: 08/26/20 20:28> General Chief complaint: Skin/Abscess/Foreign Body Stated complaint: left hand infection Time Seen by Provider: 08/26/20 16:00 Source: patient Mode of arrival: Ambulatory Limitations: no limitations History of Present Illness HPI narrative: The patient is a 50-year-old female former smoker with history of scleroderma and Raynaud's who presents with a chief complaint of an infection in her left hand. She states that she started to develop an infection in her left thumb a week ago. She states it is from all the washing, plus she is prone to problems with her fingers. She saw Dr. Cavanaugh on 08/19, erythema edema and fluctuance of her left thumb over the past 5 days. She started Keflex 5 days prior on 08/14. She had an I and D done on 08/19 of her left thumb. The patient then Received IM ceftriaxone in clinic on 08/23, chart review illustrate that Flagyl was prescribed that day. She then some Dr. Pardo on 08/26, who helped arrange for the patient to follow-up with [facility]. The patient states that she received a phone call from [facility] instructing her to come to the emergency department today for evaluation. She denies any fevers nausea vomiting diarrhea. She does complain of very persistent anxiety. Related Data Previous Rx's Medication Instructions Recorded nifedipine 30 mg tablet,extended 30 mg PO BID #180 tab 02/20/19 release citalopram 20 mg tablet 20 mg PO QDAY #90 tab 11/12/19 citalopram 40 mg tablet 40 mg PO QDAY #90 tab 11/12/19 cephalexin 500 mg capsule 500 mg PO QID #100 cap 03/03/20 amitriptyline 100 mg tablet 100 mg PO BID #180 tab 03/31/20 gabapentin 300 mg capsule See Rx Instructions .ROUTE 05/10/20 .COMPLEX #450 capsule mirtazapine 15 mg tablet See Rx Instructions .ROUTE 05/10/20 .COMPLEX #90 tab albuterol sulfate 90 mcg/actuation 2 puff INHALATION SEE INSTRUCTIONS 07/15/20 aerosol inhaler #17 gram hydrocodone 10 mg-acetaminophen See Rx Instructions PO Q6HP PRN 08/04/20 325 mg tablet #180 tab metronidazole 500 mg tablet 500 mg PO BID 10 Days #20 tab 08/23/20 dextroamphetamine-amphetamine 10 10 mg PO BID #90 tab 08/26/20 mg tablet sulfamethoxazole-trimethoprim 1 tab PO BID #14 tab 08/26/20 Allergies Allergy/AdvReac Type Severity Reaction Status Date / Time ciprofloxacin [CIPROFLOXACIN] Allergy Severe MOOD Verified 08/26/20 16:08 CHANGE/SUICIDAL THOUGHT doxycycline [DOXYCYCLINE] Allergy Severe PSYCHOSIS Verified 08/26/20 16:08 prednisone [PREDNISONE] Allergy Mild HALLUCINATI Verified 08/26/20 16:08 ONS buspirone AdvReac Severe suicidal Verified 08/26/20 16:08 ideation clindamycin AdvReac Severe mood Verified 08/26/20 16:08 changes, anger, suicidal thoughts Penicillins [PENICILLINS] AdvReac Mild stomach Verified 08/26/20 16:08 cramping Sulfa (Sulfonamide AdvReac Unknown Verified 08/26/20 16:08 Antibiotics) [SULFA (SULFONAMIDE ANTIBIOTICS)] Review of Systems <DOMINIK Serna - Last Filed: 08/26/20 20:28> Review of Systems Narrative: GENERAL: Denies chills, fatigue, malaise, fever, sweats. HEENT: Denies sinus pain, ear pain, sore throat, difficulty swallowing, dizziness. RESPIRATORY: Denies dyspnea, cough, wheezing, hemoptysis, sputum. CARDIOVASCULAR: Denies chest pain, palpitations, orthopnea, edema, GASTROINTESTINAL: Denies nausea, vomiting, abdominal pain, diarrhea, constipation, melena. : Denies dysuria, frequency, incontinence, hematuria, urinary retention. MUSCULOSKELETAL: See HPI SKIN: See HPI NEUROLOGIC: Denies weakness, headache, numbness, change in speech, confusion, seizures, incoordination. PSYCHIATRIC: No concerning psychosocial issues. 12 point review of systems is negative except for those stated above Patient History <CHRISTOFER Serna - Last Filed: 08/26/20 20:28> Medical History Raynauds syndrome (Chronic) Scleroderma (Chronic) Surgical History Anesthesia (Resolved) History of elbow surgery (Resolved ~2011) History of third molar tooth extraction Status post amputation of extremity (~1999) Status post delivery (02/09/99) Social History (System 04/18/18 @ 07:59 by Pete Villaseñor) Smoking Status: Former smoker Smoking Status: Former smoker alcohol intake frequency: other Substance Use Type: marijuana Exam <CHRISTOFER Serna Last Filed: 08/26/20 20:28> Narrative Exam Narrative: GENERAL: Thin female, appears anxious HEAD: Atraumatic. Normocephalic. No temporal or scalp tenderness. EYES: Pupils equal round and reactive. Extraocular motions intact. No scleral icterus. No injection or drainage. ENT: Nose without bleeding, purulent drainage or septal hematoma. Throat without erythema, tonsillar hypertrophy or exudate. Uvula midline. Airway patent. NECK: Trachea midline. No JVD or lymphadenopathy. Supple, nontender, no meningeal signs. CARDIOVASCULAR: Regular rate and rhythm RESPIRATORY: Clear to auscultation. Breath sounds equal bilaterally. No wheezes, rales, or rhonchi. EXTREMITIES: Multiple partial digit amputations noted bilateral hands. Left 1st digit has tenderness to palpation, is 0.5 cm lesion noted on dorsum of thumb, 1 cm lesion noted on medial aspect of thumb. Necrotic tissue noted, slight purulent drainage noted from both wounds. Positive left and right radial pulse. BACK: Nontender without deformity or crepitance. No flank tenderness. NEURO: AOx3. SKIN: See extremity exam Initial Vital Signs Initial Vital Signs: Vital Signs Temperature 98.4 F 08/26/20 16:04 Pulse Rate 126 H 08/26/20 16:04 Respiratory Rate 17 08/26/20 16:04 Blood Pressure 145/65 H 08/26/20 16:04 Pulse Oximetry 98 08/26/20 16:04 <Caesar Young DO - Last Filed: 08/27/20 01:12> Initial Vital Signs Initial Vital Signs: Vital Signs Temperature 98.4 F 08/26/20 16:04 Pulse Rate 126 H 08/26/20 16:04 Respiratory Rate 17 08/26/20 16:04 Blood Pressure 145/65 H 08/26/20 16:04 Pulse Oximetry 98 08/26/20 16:04 Course <CHRISTOFER Serna - Last Filed: 08/26/20 20:28> Orders Ordered: ED Orders 08/26/20 16:14 C-Reactive Protein Quant Stat Complete Blood Count AUTO DIFF Stat Comprehensive Metabolic Panel Stat Erythrocyte Sedimentation Rate Stat Lactate (Lactic Acid) Stat Procalcitonin Stat 08/26/20 16:22 XR finger LT min 2V Stat 08/26/20 16:39 Blood Culture Stat Vital Signs Vital signs: Vital Signs - 8 hr 08/26/20 17:30 08/26/20 17:31 08/26/20 18:00 Pulse Rate 95 H 95 H 104 H Respiratory Rate 18 Blood Pressure 149/79 H 121/65 Pulse Oximetry 98 98 99 08/26/20 19:21 Pulse Rate 91 H Respiratory Rate 16 Blood Pressure 113/62 Pulse Oximetry 99 <Caesar Young DO - Last Filed: 08/27/20 01:12> Orders Ordered: ED Orders 08/26/20 16:14 C-Reactive Protein Quant Stat Complete Blood Count AUTO DIFF Stat Comprehensive Metabolic Panel Stat Erythrocyte Sedimentation Rate Stat Lactate (Lactic Acid) Stat Procalcitonin Stat 08/26/20 16:22 XR finger LT min 2V Stat 08/26/20 16:39 Blood Culture Stat Vital Signs Vital signs: Vital Signs - 8 hr 08/26/20 17:30 08/26/20 17:31 08/26/20 18:00 Pulse Rate 95 H 95 H 104 H Respiratory Rate 18 Blood Pressure 149/79 H 121/65 Pulse Oximetry 98 98 99 08/26/20 19:21 Pulse Rate 91 H Respiratory Rate 16 Blood Pressure 113/62 Pulse Oximetry 99 MDM - Skin/Abscess/Foreign Bdy <DOMINIK SernaBC - Last Filed: 08/26/20 20:28> Lab Data Result diagrams: 08/26/20 16:14 08/26/20 16:14 Labs: Lab Results 08/26/20 08/26/20 08/26/20 Range/Units 16:14 16:14 16:14 WBC 12.2 H (4.5-11.0) X10^3/uL RBC 3.48 L (4.0-5.2) X10^6/uL Hgb 10.0 L (12.0-16.0) g/dL Hct 30.9 L (36-46) % MCV 88.8 (80-100) fL MCH 28.8 (26-34) PG MCHC 32.5 (30-36) % RDW 14.7 (11.6-14.8) % Plt Count 756 H (150-400) X10^3/uL Neut % (Auto) 72.3 (50-75) % Lymph % (Auto) 20.8 L (25-40) % [place] % (Auto) 5.1 (3-14) % Eos % (Auto) 1.1 L (2-4) % Baso % (Auto) 0.7 (0-2) % Neut # (Auto) 8800 H (9733-4395) /uL Lymph # (Auto) 2500 (3882-7462) /uL [place] # (Auto) 600 (0-900) /uL Eos # (Auto) 100 (0-450) /uL Baso # (Auto) 100 (0-100) /uL Nucleated RBCs Cancelled Hypersegmented Neuts Cancelled Hypogranular Neuts Cancelled Reactive Lymphocytes Cancelled Smudge Cells Cancelled Other Cell Type Cancelled Toxic Granulation Cancelled Toxic Vacuolation Cancelled Dohle Bodies Cancelled Zina Rods Cancelled WBC Morphology Comment Cancelled Platelet Estimate Cancelled Clumped Platelets Cancelled Plt Morphology Comment Cancelled RBC Morphology Cancelled Dimorphic RBCs Cancelled Polychromasia Cancelled Hypochromasia Cancelled Poikilocytosis Cancelled Basophilic Stippling Cancelled Anisocytosis Cancelled Microcytosis Cancelled Macrocytosis Cancelled Spherocytes Cancelled Pappenheimer Bodies Cancelled Sickle Cells Cancelled Target Cells Cancelled Tear Drop Cells Cancelled Ovalocytes Cancelled Stomatocytes Cancelled Helmet Cells Cancelled [place] Bodies Cancelled [place] Rings Cancelled [place] Cells Cancelled Acanthocytes (Spur) Cancelled Rouleaux Cancelled Schistocytes Cancelled ESR 49 H (0-20) MM/HR Sodium 136 L (137-145) mmol/L Potassium 3.6 (3.4-5.1) mmol/L Chloride 98 (98-107) mmol/L Carbon Dioxide 33 H (22-32) mmol/L BUN 9 (7-17) mg/dL Creatinine 0.76 (0.52-1.04) mg/dL Estimated GFR > 60.0 (>60) mL/min BUN/Creatinine Ratio 11.8 (6-22) Glucose 147 H (70-100) mg/dL Lactate (0.7-2.1) mmol/L Calcium 8.8 (8.4-10.2) mg/dL Total Bilirubin 0.2 (0.2-1.3) mg/dL AST 35 (14-36) IU/L ALT 40 H (<35) IU/L Alkaline Phosphatase 88 (38-126) U/L C-Reactive Protein 1.7 H (<1.0) mg/dL Total Protein 7.7 (6.3-8.2) g/dL Albumin 4.1 (3.5-5.0) g/dL Globulin 3.6 (1.7-4.1) g/dL Albumin/Globulin Ratio 1.1 (1.0-2.8) Procalcitonin 0.59 H (<0.5) ng/mL 08/26/20 Range/Units 16:14 WBC (4.5-11.0) X10^3/uL RBC (4.0-5.2) X10^6/uL Hgb (12.0-16.0) g/dL Hct (36-46) % MCV (80-100) fL MCH (26-34) PG MCHC (30-36) % RDW (11.6-14.8) % Plt Count (150-400) X10^3/uL Neut % (Auto) (50-75) % Lymph % (Auto) (25-40) % [place] % (Auto) (3-14) % Eos % (Auto) (2-4) % Baso % (Auto) (0-2) % Neut # (Auto) (9080-6639) /uL Lymph # (Auto) (9847-8310) /uL [place] # (Auto) (0-900) /uL Eos # (Auto) (0-450) /uL Baso # (Auto) (0-100) /uL Nucleated RBCs Hypersegmented Neuts Hypogranular Neuts Reactive Lymphocytes Smudge Cells Other Cell Type Toxic Granulation Toxic Vacuolation Dohle Bodies Zina Rods WBC Morphology Comment Platelet Estimate Clumped Platelets Plt Morphology Comment RBC Morphology Dimorphic RBCs Polychromasia Hypochromasia Poikilocytosis Basophilic Stippling Anisocytosis Microcytosis Macrocytosis Spherocytes Pappenheimer Bodies Sickle Cells Target Cells Tear Drop Cells Ovalocytes Stomatocytes Helmet Cells [place] Bodies [place] Rings Kyle Cells Acanthocytes (Spur) Rouleaux Schistocytes ESR (0-20) MM/HR Sodium (137-145) mmol/L Potassium (3.4-5.1) mmol/L Chloride (98-107) mmol/L Carbon Dioxide (22-32) mmol/L BUN (7-17) mg/dL Creatinine (0.52-1.04) mg/dL Estimated GFR (>60) mL/min BUN/Creatinine Ratio (6-22) Glucose (70-100) mg/dL Lactate 0.7 (0.7-2.1) mmol/L Calcium (8.4-10.2) mg/dL Total Bilirubin (0.2-1.3) mg/dL AST (14-36) IU/L ALT (<35) IU/L Alkaline Phosphatase (38-126) U/L C-Reactive Protein (<1.0) mg/dL Total Protein (6.3-8.2) g/dL Albumin (3.5-5.0) g/dL Globulin (1.7-4.1) g/dL Albumin/Globulin Ratio (1.0-2.8) Procalcitonin (<0.5) ng/mL Urine Dip Bedside Urine Glucose Negative Bedside Urine Bilirubin - Negative Bedside Urine Ketone - Negative Urine Specific [place] 1.025 Bedside Urine Occult Blood - Negative Bedside Urine pH 6.0 Bedside Urine Protein - Negative Bedside Urine Urobilinogen - Negative Bedside Urine Nitrite - Negative Bedside Urine Leukocytes - Negative Esterase Imaging Data Extremity x-ray #1: Radiologist's Impression: [address] [place] [id number] XRay Report Signed Patient: Su Escamilla LMR#: [id number] : 1970Acct:[id number] Age/Sex: 50 / FDate of Service: 08/26/20 Loc: ED Accession Number: [id number] Procedure: XR finger LT min 2V Ordering Provider: Karine Ramos- PROCEDURE: XR FINGER LT MIN 2V INDICATIONS: left thumb infection TECHNIQUE: AP hand, 2 views of the 1st finger(s) acquired. COMPARISON: None. FINDINGS: Bones: There are erosive changes within the distal 1st phalanx particularly within the mid and distal portions. Soft tissues: No suspicious soft tissue calcifications. 1st digit soft tissue edema is present. IMPRESSION: Erosive distal 1st phalanx changes as above suggestive of osteomyelitis. Dictated by: Deysi Rizzo M.D. on 08/26/2020 at 16:40 Approved by: Deysi Rizzo M.D. on 08/26/2020 at 16:41 MDM Narrative Medical decision making narrative: The patient is a 50-year-old female who presents with a chief complaint of a left thumb infection. She has been on multiple antibiotics including Keflex and Flagyl. The patient had lab work done, slight leukocytosis, elevated CRP ESR noted. The patient was evaluated by Dr. Smith in the emergency department from [facility] who did a bedside I and D in the emergency department. Her wounds were irrigated braided at the bedside, and he found that ?the dorsal wound has a visible wound bed the distal ulnar wound has no viable tissue down to the level of the interphalangeal joint which is open.However the patient does not need to go to the operating room tonight is welcome to follow up with him in clinic or see her previous hand surgeon. Patient was placed on Bactrim DS twice a day as per Dr. Smith's instructions. She is not septic in the emergency department, is afebrile and requesting to go home. I discussed at length very strict return precautions including fevers, acute concerns. Encouraged follow-up with primary care provider as well. Patient states that Bactrim is listed as an allergy, but she does not have an allergy to and wants to use Bactrim as opposed to other antibiotics. Patient has no questions or concerns upon discharge and states understanding return precautions as well as follow-up care. <Caesar Young, DO - Last Filed: 08/27/20 01:12> Lab Data Labs: Lab Results 08/26/20 08/26/20 08/26/20 Range/Units 16:14 16:14 16:14 WBC 12.2 H (4.5-11.0) X10^3/uL RBC 3.48 L (4.0-5.2) X10^6/uL Hgb 10.0 L (12.0-16.0) g/dL Hct 30.9 L (36-46) % MCV 88.8 (80-100) fL MCH 28.8 (26-34) PG MCHC 32.5 (30-36) % RDW 14.7 (11.6-14.8) % Plt Count 756 H (150-400) X10^3/uL Neut % (Auto) 72.3 (50-75) % Lymph % (Auto) 20.8 L (25-40) % [place] % (Auto) 5.1 (3-14) % Eos % (Auto) 1.1 L (2-4) % Baso % (Auto) 0.7 (0-2) % Neut # (Auto) 8800 H (5260-5897) /uL Lymph # (Auto) 2500 (2961-9783) /uL [place] # (Auto) 600 (0-900) /uL Eos # (Auto) 100 (0-450) /uL Baso # (Auto) 100 (0-100) /uL Nucleated RBCs Cancelled Hypersegmented Neuts Cancelled Hypogranular Neuts Cancelled Reactive Lymphocytes Cancelled Smudge Cells Cancelled Other Cell Type Cancelled Toxic Granulation Cancelled Toxic Vacuolation Cancelled Dohle Bodies Cancelled Zina Rods Cancelled WBC Morphology Comment Cancelled Platelet Estimate Cancelled Clumped Platelets Cancelled Plt Morphology Comment Cancelled RBC Morphology Cancelled Dimorphic RBCs Cancelled Polychromasia Cancelled Hypochromasia Cancelled Poikilocytosis Cancelled Basophilic Stippling Cancelled Anisocytosis Cancelled Microcytosis Cancelled Macrocytosis Cancelled Spherocytes Cancelled Pappenheimer Bodies Cancelled Sickle Cells Cancelled Target Cells Cancelled Tear Drop Cells Cancelled Ovalocytes Cancelled Stomatocytes Cancelled Helmet Cells Cancelled [place] Bodies Cancelled [place] Rings Cancelled [place] Cells Cancelled Acanthocytes (Spur) Cancelled Rouleaux Cancelled Schistocytes Cancelled ESR 49 H (0-20) MM/HR Sodium 136 L (137-145) mmol/L Potassium 3.6 (3.4-5.1) mmol/L Chloride 98 (98-107) mmol/L Carbon Dioxide 33 H (22-32) mmol/L BUN 9 (7-17) mg/dL Creatinine 0.76 (0.52-1.04) mg/dL Estimated GFR > 60.0 (>60) mL/min BUN/Creatinine Ratio 11.8 (6-22) Glucose 147 H (70-100) mg/dL Lactate (0.7-2.1) mmol/L Calcium 8.8 (8.4-10.2) mg/dL Total Bilirubin 0.2 (0.2-1.3) mg/dL AST 35 (14-36) IU/L ALT 40 H (<35) IU/L Alkaline Phosphatase 88 (38-126) U/L C-Reactive Protein 1.7 H (<1.0) mg/dL Total Protein 7.7 (6.3-8.2) g/dL Albumin 4.1 (3.5-5.0) g/dL Globulin 3.6 (1.7-4.1) g/dL Albumin/Globulin Ratio 1.1 (1.0-2.8) Procalcitonin 0.59 H (<0.5) ng/mL 08/26/20 Range/Units 16:14 WBC (4.5-11.0) X10^3/uL RBC (4.0-5.2) X10^6/uL Hgb (12.0-16.0) g/dL Hct (36-46) % MCV (80-100) fL MCH (26-34) PG MCHC (30-36) % RDW (11.6-14.8) % Plt Count (150-400) X10^3/uL Neut % (Auto) (50-75) % Lymph % (Auto) (25-40) % [place] % (Auto) (3-14) % Eos % (Auto) (2-4) % Baso % (Auto) (0-2) % Neut # (Auto) (7101-9454) /uL Lymph # (Auto) (9975-0753) /uL [place] # (Auto) (0-900) /uL Eos # (Auto) (0-450) /uL Baso # (Auto) (0-100) /uL Nucleated RBCs Hypersegmented Neuts Hypogranular Neuts Reactive Lymphocytes Smudge Cells Other Cell Type Toxic Granulation Toxic Vacuolation Dohle Bodies Zina Rods WBC Morphology Comment Platelet Estimate Clumped Platelets Plt Morphology Comment RBC Morphology Dimorphic RBCs Polychromasia Hypochromasia Poikilocytosis Basophilic Stippling Anisocytosis Microcytosis Macrocytosis Spherocytes Pappenheimer Bodies Sickle Cells Target Cells Tear Drop Cells Ovalocytes Stomatocytes Helmet Cells [place] Bodies [place] Rings [place] Cells Acanthocytes (Spur) Rouleaux Schistocytes ESR (0-20) MM/HR Sodium (137-145) mmol/L Potassium (3.4-5.1) mmol/L Chloride (98-107) mmol/L Carbon Dioxide (22-32) mmol/L BUN (7-17) mg/dL Creatinine (0.52-1.04) mg/dL Estimated GFR (>60) mL/min BUN/Creatinine Ratio (6-22) Glucose (70-100) mg/dL Lactate 0.7 (0.7-2.1) mmol/L Calcium (8.4-10.2) mg/dL Total Bilirubin (0.2-1.3) mg/dL AST (14-36) IU/L ALT (<35) IU/L Alkaline Phosphatase (38-126) U/L C-Reactive Protein (<1.0) mg/dL Total Protein (6.3-8.2) g/dL Albumin (3.5-5.0) g/dL Globulin (1.7-4.1) g/dL Albumin/Globulin Ratio (1.0-2.8) Procalcitonin (<0.5) ng/mL Urine Dip Bedside Urine Glucose Negative Bedside Urine Bilirubin - Negative Bedside Urine Ketone - Negative Urine Specific [place] 1.025 Bedside Urine Occult Blood - Negative Bedside Urine pH 6.0 Bedside Urine Protein - Negative Bedside Urine Urobilinogen - Negative Bedside Urine Nitrite - Negative Bedside Urine Leukocytes - Negative Esterase Discharge Plan Departure Patient Disposition: Home Clinical Impression: Infection of thumb Discharge Date/Time: 08/26/20 19:22 Instructions: DI for Wound Infection Activity Restrictions/Additional Instructions: Thank you for trusting us with your care today As discussed, I sent a prescription of an antibiotic to [facility] in [place]. Please take this with probiotic or yogurt. Please follow-up with primary care provider in the next few days. I have also given you contact information to [facility]. Dr. Smith is willing to follow-up with you or you can follow-up with your previous hand surgeon Please come back to the emergency department any acute such as high fevers, confusion etcetera Prescriptions: New sulfamethoxazole-trimethoprim 800-160 mg tablet 1 tab PO BID Qty: 14 RF: 0 No Action citalopram 40 mg tablet 40 mg PO QDAY Qty: 90 RF: 3 citalopram 20 mg tablet 20 mg PO QDAY Qty: 90 RF: 3 amitriptyline 100 mg tablet 100 mg PO BID Qty: 180 RF: 3 mirtazapine 15 mg tablet See Rx Instructions .ROUTE .COMPLEX Qty: 90 RF: 2 gabapentin 300 mg capsule See Rx Instructions .ROUTE .COMPLEX Qty: 450 RF: 1 albuterol sulfate [Proventil HFA] 90 mcg/actuation HFA aerosol inhaler 2 puff inhalation SEE INSTRUCTIONS Qty: 17 RF: 5 hydrocodone-acetaminophen [[place]] 10-325 mg tablet See Rx Instructions PO Q6HP PRN (Reason: pain) Qty: 180 RF: 0 metronidazole 500 mg tablet 500 mg PO BID 10 Days Qty: 20 RF: 0 nifedipine [Adalat CC] 30 mg tablet extended release 30 mg PO BID Qty: 180 RF: 1 dextroamphetamine-amphetamine [Adderall] 10 mg tablet 10 mg PO BID Qty: 90 RF: 0 cephalexin [Keflex] 500 mg capsule 500 mg PO QID Qty: 100 RF: 5 Hold Instructions: Resistant infection Referrals: [facility] [Provider Group] Yfn Pardo MD [Primary Care Provider] - Wili Smith MD [Physician] - <Caesar Young DO - Last Filed: 08/27/20 01:12> [facility] ED Attending [facility] Emergency Department Attestation: I was immediately available in the department for consultation. This documentation has been reviewed and I agree with assessment and plan. Supervised by Caesar Young DO
[2020-08-26 17:01] LABS: Procalcitonin 0.59 ng/mL (<0.5)
[2020-08-26 17:46] LABS: Erythrocyte Sedimentation Rate 49 MM/HR (0-20)
--- NOTE | 2020-08-26 18:52 | P.CONS_ITS ---
History of Present Illness Consult details Date Patient Seen: 08/26/20 Time Patient Seen: 18:53 Chief complaint: left hand infection Reason for consult: left thumb infection Narrative: Patient is a 50-year-old female with history of scleroderma and Raynaud's who has had multiple partial amputations of bilateral digits. She presents with a chief complaint of an infection in her left hand. She states that she started to develop an infection in her left thumb a few weeks ago. She states it is from all the washing, plus she is prone to problems with her fingers. She started Keflex 5 days on 08/14. She had an I and D done on 08/19 of her left thumb. The patient then Received IM ceftriaxone in clinic on 08/23, chart review illustrate that Flagyl was prescribed that day. She has seen Dr. Mustafa in the past for recurrent finger infections related to Raynauds and scleroderma. She denies any nausea vomiting fevers or chills. She does have some pain in the thumb however this is been stable for the last several weeks. She notes scant drainage at the dorsum of the thumb as well as the ulnar aspect of the thumb. Meds Home Medications and Allergies Home Medications Medication Instructions Recorded Confirmed Type nifedipine 30 mg tablet,extended 30 mg PO BID #180 tab 02/20/19 08/26/20 Rx release citalopram 20 mg tablet 20 mg PO QDAY #90 tab 11/12/19 08/26/20 Rx citalopram 40 mg tablet 40 mg PO QDAY #90 tab 11/12/19 08/26/20 Rx cephalexin 500 mg capsule 500 mg PO QID #100 cap 03/03/20 08/26/20 Rx amitriptyline 100 mg tablet 100 mg PO BID #180 tab 03/31/20 08/26/20 Rx gabapentin 300 mg capsule See Rx Instructions .ROUTE 05/10/20 08/26/20 Rx .COMPLEX #450 capsule mirtazapine 15 mg tablet See Rx Instructions .ROUTE 05/10/20 08/26/20 Rx .COMPLEX #90 tab albuterol sulfate 90 mcg/actuation 2 puff INHALATION SEE INSTRUCTIONS 07/15/20 08/26/20 Rx aerosol inhaler #17 gram hydrocodone 10 mg-acetaminophen See Rx Instructions PO Q6HP PRN 08/04/20 08/26/20 Rx 325 mg tablet #180 tab metronidazole 500 mg tablet 500 mg PO BID 10 Days #20 tab 08/23/20 08/26/20 Rx dextroamphetamine-amphetamine 10 10 mg PO BID #90 tab 08/26/20 08/26/20 Rx mg tablet Allergies Allergy/AdvReac Type Severity Reaction Status Date / Time ciprofloxacin [CIPROFLOXACIN] Allergy Severe MOOD Verified 08/26/20 16:08 CHANGE/SUICIDAL THOUGHT doxycycline [DOXYCYCLINE] Allergy Severe PSYCHOSIS Verified 08/26/20 16:08 prednisone [PREDNISONE] Allergy Mild HALLUCINATI Verified 08/26/20 16:08 ONS buspirone AdvReac Severe suicidal Verified 08/26/20 16:08 ideation clindamycin AdvReac Severe mood Verified 08/26/20 16:08 changes, anger, suicidal thoughts Penicillins [PENICILLINS] AdvReac Mild stomach Verified 08/26/20 16:08 cramping Sulfa (Sulfonamide AdvReac Unknown Verified 08/26/20 16:08 Antibiotics) [SULFA (SULFONAMIDE ANTIBIOTICS)] Exam Vital Signs (past 8 hours): - 08/26/20 16:04 08/26/20 16:18 08/26/20 16:39 Temperature 98.4 F Pulse Rate 126 H 111 H Respiratory Rate 17 18 Blood Pressure 145/65 H 124/78 Pulse Oximetry 98 96 99 08/26/20 16:40 08/26/20 17:00 08/26/20 17:30 Temperature Pulse Rate 111 H 103 H 95 H Respiratory Rate 20 Blood Pressure 126/69 120/61 Pulse Oximetry 99 98 98 08/26/20 17:31 08/26/20 18:00 Temperature Pulse Rate 95 H 104 H Respiratory Rate 18 Blood Pressure 149/79 H 121/65 Pulse Oximetry 98 99 Oxygen Delivery Method Room Air Narrative Exam Narrative: Bilateral finger and hand changes consistent with Raynaud's disease as well as scleroderma. She has multiple bilateral partial digit am putations. Regarding her left thumb she does have some tenderness to palpation in the thumb however the thumb is not red or circumferentially swollen. She has a 0.5 cm diameter lesion over the dorsum of the left thumb just proximal to the interphalangeal joint. She also has a 1 cm diameter lesion over the ulnar aspect of the left thumb at the level of the interphalangeal joint. Both of these demonstrate necrotic tissue and scant drainage. These were both irrigation and debrided at bedside the dorsal wound has a viable wound bed the distal ulnar wound has no viable tissue down to the level of the interphalangeal joint which is open. Objective Labs Result Diagrams: 08/26/20 16:14 08/26/20 16:14 Labs: Laboratory Results - last 24 hr 08/26/20 08/26/20 08/26/20 16:14 16:14 16:14 WBC 12.2 H RBC 3.48 L Hgb 10.0 L Hct 30.9 L MCV 88.8 MCH 28.8 MCHC 32.5 RDW 14.7 Plt Count 756 H Neut % (Auto) 72.3 Lymph % (Auto) 20.8 L Fajardo % (Auto) 5.1 Eos % (Auto) 1.1 L Baso % (Auto) 0.7 Neut # (Auto) 8800 H Lymph # (Auto) 2500 Fajardo # (Auto) 600 Eos # (Auto) 100 Baso # (Auto) 100 Nucleated RBCs Cancelled Hypersegmented Neuts Cancelled Hypogranular Neuts Cancelled Reactive Lymphocytes Cancelled Smudge Cells Cancelled Other Cell Type Cancelled Toxic Granulation Cancelled Toxic Vacuolation Cancelled Dohle Bodies Cancelled Zina Rods Cancelled WBC Morphology Comment Cancelled Platelet Estimate Cancelled Clumped Platelets Cancelled Plt Morphology Comment Cancelled RBC Morphology Cancelled Dimorphic RBCs Cancelled Polychromasia Cancelled Hypochromasia Cancelled Poikilocytosis Cancelled Basophilic Stippling Cancelled Anisocytosis Cancelled Microcytosis Cancelled Macrocytosis Cancelled Spherocytes Cancelled Pappenheimer Bodies Cancelled Sickle Cells Cancelled Target Cells Cancelled Tear Drop Cells Cancelled Ovalocytes Cancelled Stomatocytes Cancelled Helmet Cells Cancelled Jefferson-Kings Bodies Cancelled Colton Rings Cancelled Brandenburg Cells Cancelled Acanthocytes (Spur) Cancelled Rouleaux Cancelled Schistocytes Cancelled ESR 49 H Sodium 136 L Potassium 3.6 Chloride 98 Carbon Dioxide 33 H BUN 9 Creatinine 0.76 Estimated GFR > 60.0 BUN/Creatinine Ratio 11.8 Glucose 147 H Lactate Calcium 8.8 Total Bilirubin 0.2 AST 35 ALT 40 H Alkaline Phosphatase 88 C-Reactive Protein 1.7 H Total Protein 7.7 Albumin 4.1 Globulin 3.6 Albumin/Globulin Ratio 1.1 Procalcitonin 0.59 H 08/26/20 16:14 WBC RBC Hgb Hct MCV MCH MCHC RDW Plt Count Neut % (Auto) Lymph % (Auto) Fajardo % (Auto) Eos % (Auto) Baso % (Auto) Neut # (Auto) Lymph # (Auto) Fajardo # (Auto) Eos # (Auto) Baso # (Auto) Nucleated RBCs Hypersegmented Neuts Hypogranular Neuts Reactive Lymphocytes Smudge Cells Other Cell Type Toxic Granulation Toxic Vacuolation Dohle Bodies Zina Rods WBC Morphology Comment Platelet Estimate Clumped Platelets Plt Morphology Comment RBC Morphology Dimorphic RBCs Polychromasia Hypochromasia Poikilocytosis Basophilic Stippling Anisocytosis Microcytosis Macrocytosis Spherocytes Pappenheimer Bodies Sickle Cells Target Cells Tear Drop Cells Ovalocytes Stomatocytes Helmet Cells Jefferson-Kings Bodies Colton Rings Brandenburg Cells Acanthocytes (Spur) Rouleaux Schistocytes ESR Sodium Potassium Chloride Carbon Dioxide BUN Creatinine Estimated GFR BUN/Creatinine Ratio Glucose Lactate 0.7 Calcium Total Bilirubin AST ALT Alkaline Phosphatase C-Reactive Protein Total Protein Albumin Globulin Albumin/Globulin Ratio Procalcitonin Assessment & Plan Assessment & Plan narrative: Patient is a 50-year-old female with a history of Raynaud's and scleroderma. She has multiple partial digit amputations in bilateral hands. This been ongoing issue for her for long period time. She has had issues with this left thumb for the last 2 and half weeks. She received bedside I&D as well as intramuscular and oral antibiotics without resolution her wounds. After bedside I and D the dorsal wound appears viable however the dis andra ulnar wound over the interphalangeal joint probes down to the joint itself does not appear viable. I had a bambi discussion with the patient that she will likely need an amputation the thumb this may end up being a partial amputation but she will need some sort of amputation. Patient became tearful. She does not want to undergo this right now. She states that she has 2 twins at home were depend on her. I do not think that she has any imminent need for amputation at this moment although that she should be followed closely. She will likely need amputation in the coming weeks. She demonstrates understanding. She has had a previous partial amputations by Dr. Lezama in [facility] and would like to return to her. If she is not able to be seen by her she should return to our clinic for evaluation this coming Sunday. I think she would benefit from a hand surgeon due to the complexity of her Raynaud's and scleroderma regards to a partial amputation. Continue oral antibiotics Daily dressing changes dressing supplies provided Follow-up in my clinic in 1 weeks time if she has not been seen by hand specialist in the interim Time Spent With Patient Time with patient: Greater than 35 minutes
--- NOTE | 2020-08-26 19:15 | PC.NURSE ---
Ortho did an I&D at the bedside. finger now wrapped in gauze. MD did not obtain a wound cx
== END 2020-08-26 19:22 | disposition home or self-care (01) ==
PROVIDERS: Emergency Provider Nurse Practitioner Family; PCP Family Medicine
DX: L08.9 Local infection of the skin and subcutaneous tissue, unspecified (principal)
CPT/HCPCS: 36415; 73140; 80053; 81003; 83605; 84145; 85025; 85651; 86140; 87040; 99283

== ENCOUNTER → 2020-09-16 08:57 | Outpatient (CLI) | payer MEDICARE, MEDICAID, SELFPAY | PROVIDERS: PCP Family Medicine; Referring Provider Orthopaedic Surgery; Visit Provider Family Medicine | DX: S61.002A Unspecified open wound of left thumb without damage to nail, initial encounter (principal); M86.142 Other acute osteomyelitis, left hand; M34.0 Progressive systemic sclerosis; M79.645 Pain in left finger(s) | CPT/HCPCS: 73130; 99214 ==

== ENCOUNTER → 2020-09-16 10:19 | Outpatient (CLI) | payer MEDICARE, MEDICAID, SELFPAY ==
--- NOTE | 2020-09-16 | DI.RAD.S_ITS ---
PROCEDURE: XR HAND LT MIN 3V INDICATIONS: LEFT THUMB PAIN TECHNIQUE: 3 views of the hand(s) acquired. COMPARISON: [facility], RG, XR HAND 3V LEFT, 02/14/2006, 12:00. [facility], CR, XR FINGER LT MIN 2V, 08/26/2020, 16:14. FINDINGS: Bones: There are distal finger amputations. There is irregular distal margin of the 1st distal phalanx. No fractures or dislocations. Carpal bones are normally aligned. No suspicious bony lesions. Soft tissues: No suspicious soft tissue calcifications. Soft tissue swelling of the left 1st, 2nd and 3rd phalanges. IMPRESSION: Irregular distal margin of the 1st distal phalanx suggesting osteomyelitis. Recommend clinical correlation. Dictated by: Chantelle Bedolla M.D. on 09/16/2020 at 16:59 Approved by: Chantelle Bedolla M.D. on 09/16/2020 at 17:03
== END ==
PROVIDERS: PCP Family Medicine; Referring Provider Family Medicine; Visit Provider Family Medicine
DX: S61.002A Unspecified open wound of left thumb without damage to nail, initial encounter (principal); M79.645 Pain in left finger(s); M34.0 Progressive systemic sclerosis
CPT/HCPCS: 73130

== ENCOUNTER → 2020-09-23 09:12 | Outpatient (CLI) | payer MEDICARE, MEDICAID, SELFPAY | PROVIDERS: PCP Family Medicine; Referring Provider Family Medicine; Visit Provider Family Medicine | DX: S61.002A Unspecified open wound of left thumb without damage to nail, initial encounter (principal); M86.142 Other acute osteomyelitis, left hand; M34.0 Progressive systemic sclerosis | CPT/HCPCS: 99213; 99214 ==

== ENCOUNTER → 2020-10-07 13:31 | Outpatient (CLI) | payer MEDICARE, MEDICAID, SELFPAY | PROVIDERS: PCP Family Medicine; Referring Provider Family Medicine; Visit Provider Family Medicine | DX: S61.002A Unspecified open wound of left thumb without damage to nail, initial encounter (principal); M86.142 Other acute osteomyelitis, left hand; M34.1 CR(E)ST syndrome | CPT/HCPCS: 11042 ==

== ENCOUNTER → 2020-10-28 09:14 | Outpatient (CLI) | payer MEDICARE, MEDICAID, SELFPAY | PROVIDERS: PCP Family Medicine; Referring Provider Family Medicine; Visit Provider Family Medicine | DX: S61.002A Unspecified open wound of left thumb without damage to nail, initial encounter (principal) | CPT/HCPCS: 99212 ==

== ENCOUNTER → 2020-11-04 09:34 | Outpatient (CLI) | payer MEDICARE, MEDICAID, SELFPAY | PROVIDERS: PCP Family Medicine; Referring Provider Family Medicine; Visit Provider Family Medicine | DX: S61.002A Unspecified open wound of left thumb without damage to nail, initial encounter (principal); M34.1 CR(E)ST syndrome; M86.642 Other chronic osteomyelitis, left hand | CPT/HCPCS: 11042 ==

== ENCOUNTER → 2020-11-24 09:47 | Outpatient (CLI) | payer MEDICARE, MEDICAID, SELFPAY | PROVIDERS: PCP Family Medicine; Referring Provider Family Medicine; Visit Provider Family Medicine | DX: S61.002A Unspecified open wound of left thumb without damage to nail, initial encounter (principal); S61.204A Unspecified open wound of right ring finger without damage to nail, initial encounter; M34.1 CR(E)ST syndrome; M86.642 Other chronic osteomyelitis, left hand | CPT/HCPCS: 20220; 87070; 87075; 87077; 87186; 87205; 99214 ==

== ENCOUNTER → 2020-12-02 09:36 | Outpatient (CLI) | payer MEDICARE, MEDICAID, SELFPAY | PROVIDERS: PCP Family Medicine; Referring Provider Family Medicine; Visit Provider Family Medicine | DX: S61.002A Unspecified open wound of left thumb without damage to nail, initial encounter (principal); S61.204A Unspecified open wound of right ring finger without damage to nail, initial encounter; M34.1 CR(E)ST syndrome; M86.642 Other chronic osteomyelitis, left hand; M86.142 Other acute osteomyelitis, left hand | CPT/HCPCS: 11042; 99215 ==

== ENCOUNTER → 2020-12-09 08:44 | Outpatient (CLI) | payer MEDICARE, MEDICAID, SELFPAY | PROVIDERS: PCP Family Medicine; Referring Provider Family Medicine; Visit Provider Family Medicine | DX: S61.002A Unspecified open wound of left thumb without damage to nail, initial encounter (principal); S61.204A Unspecified open wound of right ring finger without damage to nail, initial encounter; M34.1 CR(E)ST syndrome; M86.642 Other chronic osteomyelitis, left hand; M86.142 Other acute osteomyelitis, left hand | CPT/HCPCS: 73130; 97597; 99213 ==

== ENCOUNTER → 2020-12-09 09:43 | Outpatient (CLI) | payer MEDICARE, MEDICAID, SELFPAY ==
--- NOTE | 2020-12-09 09:48 | DI.RAD.S_ITS ---
PROCEDURE: XR HAND RT MIN 3V INDICATIONS: RT HAND EVAL FOR OSTEOMYELITIS TECHNIQUE: 3 views of the hand(s) acquired. COMPARISON: [facility], , HAND 3V RIGHT, 05/26/2017, 12:33. FINDINGS: Bones: No fractures or dislocations. Carpal bones are normally aligned. No suspicious bony lesions. Partial amputation of the 1st through 5th fingers. No periosteal reaction. No osseous erosive changes. Soft tissues: No suspicious soft tissue calcifications. No soft tissue gas IMPRESSION: No bambi evidence of osteomyelitis. Plain film radiographs can be insensitive to osteomyelitis during the initial 15 days of the disease process. If there is clinical concern for osteomyelitis, then three-phase nuclear medicine bone scan should be considered for further evaluation. Dictated by: Sudha Conroy MD, PhD on 12/09/2020 at 14:23 Approved by: Sudha Conroy MD, PhD on 12/09/2020 at 14:25
== END ==
PROVIDERS: PCP Family Medicine; Referring Provider Family Medicine; Visit Provider Family Medicine
DX: S61.204A Unspecified open wound of right ring finger without damage to nail, initial encounter (principal)
CPT/HCPCS: 73130

== ENCOUNTER → 2020-12-16 10:34 | Outpatient (CLI) | payer MEDICARE, MEDICAID, SELFPAY | PROVIDERS: PCP Family Medicine; Referring Provider Family Medicine; Visit Provider Family Medicine | DX: S61.002A Unspecified open wound of left thumb without damage to nail, initial encounter (principal); S61.204A Unspecified open wound of right ring finger without damage to nail, initial encounter; M34.1 CR(E)ST syndrome; M86.642 Other chronic osteomyelitis, left hand; M86.142 Other acute osteomyelitis, left hand | CPT/HCPCS: 11042; 97597 ==

== ENCOUNTER → 2020-12-30 12:06 | Outpatient (CLI) | payer MEDICARE, MEDICAID, SELFPAY | PROVIDERS: PCP Family Medicine; Referring Provider Family Medicine; Visit Provider Family Medicine | DX: S61.204A Unspecified open wound of right ring finger without damage to nail, initial encounter (principal); M34.1 CR(E)ST syndrome | CPT/HCPCS: 11042 ==

== ENCOUNTER → 2021-01-13 10:30 | Outpatient (CLI) | payer MEDICARE, MEDICAID, SELFPAY | PROVIDERS: PCP Family Medicine; Referring Provider Family Medicine; Visit Provider Family Medicine | DX: S61.204D Unspecified open wound of right ring finger without damage to nail, subsequent encounter (principal); M34.1 CR(E)ST syndrome; I73.00 Raynaud's syndrome without gangrene; Z79.2 Long term (current) use of antibiotics | CPT/HCPCS: 99213 ==

== ENCOUNTER → 2021-06-27 14:43 | Outpatient (CLI) | payer MEDICARE, MEDICAID, SELFPAY | PROVIDERS: PCP Family Medicine; Visit Provider Family Medicine | DX: I73.00 Raynaud's syndrome without gangrene (principal); Z89.9 Acquired absence of limb, unspecified | CPT/HCPCS: 87070; 87075; 87077; 87147; 87186; 87205 ==

== ENCOUNTER → 2021-07-08 11:02 | Outpatient (CLI) | payer MEDICARE, MEDICAID, SELFPAY | PROVIDERS: Family Provider Family Medicine; PCP Family Medicine; Referring Provider Family Medicine; Visit Provider Nurse Practitioner Family | DX: M34.1 CR(E)ST syndrome (principal); S61.205A Unspecified open wound of left ring finger without damage to nail, initial encounter; L08.9 Local infection of the skin and subcutaneous tissue, unspecified; R73.9 Hyperglycemia, unspecified; I73.00 Raynaud's syndrome without gangrene; M34.9 Systemic sclerosis, unspecified; X58.XXXA Exposure to other specified factors, initial encounter | CPT/HCPCS: 11042; 36415; 73140; 80053; 80061; 83036; 84443; 85025; 85651; 86140; 99213; 99214 ==

== ENCOUNTER → 2021-07-08 11:12 | Outpatient (CLI) | payer MEDICARE, MEDICAID, SELFPAY ==
--- NOTE | 2021-07-08 | DI.RAD.S_ITS ---
PROCEDURE: XR FINGER LT MIN 2V INDICATIONS: Unspecified open wound of left ring finger without damage to TECHNIQUE: AP hand, 2 views of the 4th finger(s) acquired. COMPARISON: [facility], CR, XR HAND LT MIN 3V, 09/16/2020, 10:19. [facility], CR, XR FINGER LT MIN 2V, 08/26/2020, 16:14. FINDINGS: Bones: Osseous narrowing of the distal aspect of the fingers. The 4th digit distal phalanx appears unchanged. No osseous erosion at the 4th digit is identified. There is minimal irregularity at the distal phalanx of the 1st digit. There is a chronic displacement of the 2nd digit distal phalanx. There is No suspicious bony lesions. Soft tissues: No suspicious soft tissue calcifications. IMPRESSION: No acute osseous erosion identified at the 4th digit distal phalanx. There is narrowing of the distal aspects of the fingers overall similar to the prior exam. Similar erosive changes at the 1st digit distal phalanx. Dictated by: Sacha Fong M.D. on 07/08/2021 at 12:54 Approved by: Sacha Fong M.D. on 07/08/2021 at 12:59
[2021-07-08 12:01] LABS: Add Manual Diff / Slide Review NO; Basophils Absolute Auto 100 /uL (0-100); Basophils Percent Auto 1.4 % (0-2); Eosinophils Absolute Auto 100 /uL (0-450); Eosinophils Percent Auto 1.8 % (2-4); Hematocrit 31.9 % (36-46); Hemoglobin 10.3 g/dL (12.0-16.0); Lymphocytes Absolute Auto 1700 /uL (1100-4500); Lymphocytes Percent Auto 24.7 % (25-40); Mean Corpuscular HGB Conc 32.4 % (30-36); Mean Corpuscular Hemoglobin 28.6 PG (26-34); Mean Corpuscular Volume 88.4 fL (80-100); Monocytes Absolute Auto 600 /uL (0-900); Monocytes Percent Auto 8.9 % (3-14); Neutrophils Absolute Auto 4400 /uL (1500-7000); Neutrophils Percent Auto 63.2 % (50-75); Platelet Count 398 X10^3/uL (150-400); Red Blood Cell Count 3.61 X10^6/uL (4.0-5.2); Red Cell Distribution Width 14.2 % (11.6-14.8)
[2021-07-08 12:17] LABS: Hemoglobin A1C% w Est Avg Glu 5.2 % (4.0-6.0)
[2021-07-08 12:26] LABS: Alanine Aminotransferase 16 IU/L (<35); Albumin 4.1 g/dL (3.5-5.0); Albumin Globulin Ratio 1.1 (1.0-2.8); Alkaline Phosphatase 75 U/L (38-126); Aspartate Aminotransferase 41 IU/L (14-36); BUN Creatinine Ratio 6.5 (6-22); Bilirubin Total 0.1 mg/dL (0.2-1.3); Blood Urea Nitrogen 7 mg/dL (7-17); C-Reactive Protein Quant < 0.5 mg/dL (<1.0); Carbon Dioxide 27 mmol/L (22-32); Chloride 102 mmol/L (98-107); Estimated Glomerular Filt Rate 53.7 mL/min (>60); Globulin 3.6 g/dL (1.7-4.1); Glucose 98 mg/dL (70-100); HEMOLYSIS < 15 (0-50); Potassium 4.5 mmol/L (3.4-5.1); Sodium 135 mmol/L (137-145); Total Protein 7.7 g/dL (6.3-8.2)
[2021-07-08 12:26] LABS: Cholesterol 225 mg/dL (140-199); HDL Cholesterol 50 mg/dL (40-60); LDL Cholesterol Calculated 153 mg/dL (<100); Triglycerides 111 mg/dL (35-150)
[2021-07-08 12:48] LABS: Thyroid Stimulating Hormone 0.938 uIU/mL (0.47-4.68)
[2021-07-08 13:01] LABS: Erythrocyte Sedimentation Rate 23 MM/HR (0-20)
== END ==
PROVIDERS: Family Provider Family Medicine; PCP Family Medicine; Referring Provider Nurse Practitioner Family; Visit Provider Nurse Practitioner Family
DX: S61.205A Unspecified open wound of left ring finger without damage to nail, initial encounter (principal); L08.9 Local infection of the skin and subcutaneous tissue, unspecified; M34.1 CR(E)ST syndrome; R73.9 Hyperglycemia, unspecified; F41.9 Anxiety disorder, unspecified; I73.00 Raynaud's syndrome without gangrene; M34.9 Systemic sclerosis, unspecified; X58.XXXA Exposure to other specified factors, initial encounter
CPT/HCPCS: 36415; 73140; 80053; 80061; 83036; 84443; 85025; 85651; 86140

== ENCOUNTER → 2021-07-15 10:20 | Outpatient (CLI) | payer MEDICARE, MEDICAID, SELFPAY | PROVIDERS: Family Provider Family Medicine; PCP Family Medicine; Referring Provider Family Medicine; Visit Provider Nurse Practitioner Family | DX: M34.1 CR(E)ST syndrome (principal); S61.205A Unspecified open wound of left ring finger without damage to nail, initial encounter; L08.9 Local infection of the skin and subcutaneous tissue, unspecified; I73.00 Raynaud's syndrome without gangrene; L94.0 Localized scleroderma [morphea] | CPT/HCPCS: 87070; 87077; 87147; 87186; 87205; 97597; 99213 ==

== ENCOUNTER → 2021-07-22 10:13 | Outpatient (CLI) | payer MEDICARE, MEDICAID, SELFPAY | PROVIDERS: Family Provider Family Medicine; PCP Family Medicine; Referring Provider Family Medicine; Visit Provider Nurse Practitioner Family | DX: M34.1 CR(E)ST syndrome (principal); S61.205A Unspecified open wound of left ring finger without damage to nail, initial encounter; I73.00 Raynaud's syndrome without gangrene | CPT/HCPCS: 97597 ==

== ENCOUNTER → 2021-08-05 09:35 | Outpatient (CLI) | payer MEDICARE, MEDICAID, SELFPAY | PROVIDERS: Family Provider Family Medicine; PCP Family Medicine; Referring Provider Family Medicine; Visit Provider Nurse Practitioner Family | DX: M34.1 CR(E)ST syndrome (principal); S61.205A Unspecified open wound of left ring finger without damage to nail, initial encounter; I73.00 Raynaud's syndrome without gangrene | CPT/HCPCS: 97597 ==

== ENCOUNTER → 2021-08-26 11:31 | Outpatient (CLI) | payer MEDICARE, MEDICAID, SELFPAY | PROVIDERS: Family Provider Family Medicine; PCP Family Medicine; Referring Provider Family Medicine; Visit Provider Nurse Practitioner Family | DX: M34.1 CR(E)ST syndrome (principal); S61.205A Unspecified open wound of left ring finger without damage to nail, initial encounter | CPT/HCPCS: 99212; 99213 ==

== ENCOUNTER → 2021-09-09 11:21 | Outpatient (CLI) | payer MEDICARE, MEDICAID, SELFPAY ==
--- NOTE | 2021-09-09 | DI.RAD.S_ITS ---
PROCEDURE: XR HAND RT MIN 3V INDICATIONS: OSTEOMYLITIS TECHNIQUE: For views of the hand(s) acquired. COMPARISON: None. FINDINGS: The examination is compromised by hand contracture. Bones: No fractures or dislocations. No cortical irregularity is appreciated to suggest osteomyelitis. Amputated changes of the 1st and 2nd digits. Carpal bones are normally aligned. No suspicious bony lesions. Soft tissues: No suspicious soft tissue calcifications. Soft tissue edema overlying the 2nd metacarpal head. IMPRESSION: No evidence of cortical destruction to suggest osteomyelitis. Dictated by: Km Wheat M.D. on 09/09/2021 at 12:03 Approved by: Km Wheat M.D. on 09/09/2021 at 12:08
[2021-09-09 12:11] LABS: Add Manual Diff / Slide Review NO; Basophils Absolute Auto 100 /uL (0-100); Basophils Percent Auto 0.9 % (0-2); Eosinophils Absolute Auto 100 /uL (0-450); Eosinophils Percent Auto 1.7 % (2-4); Hematocrit 33.9 % (36-46); Hemoglobin 10.7 g/dL (12.0-16.0); Lymphocytes Absolute Auto 2100 /uL (1100-4500); Lymphocytes Percent Auto 24.8 % (25-40); Mean Corpuscular HGB Conc 31.5 % (30-36); Mean Corpuscular Hemoglobin 27.7 PG (26-34); Monocytes Absolute Auto 700 /uL (0-900); Monocytes Percent Auto 7.9 % (3-14); Neutrophils Absolute Auto 5400 /uL (1500-7000); Neutrophils Percent Auto 64.7 % (50-75); Platelet Count 411 X10^3/uL (150-400); Red Blood Cell Count 3.86 X10^6/uL (4.0-5.2); Red Cell Distribution Width 14.9 % (11.6-14.8); White Blood Cell Count 8.4 X10^3/uL (4.5-11.0)
[2021-09-09 12:49] LABS: Erythrocyte Sedimentation Rate 20 MM/HR (0-20)
[2021-09-09 12:55] LABS: C-Reactive Protein Quant 0.6 mg/dL (<1.0)
[2021-09-09 12:57] LABS: Alanine Aminotransferase 15 IU/L (<35); Albumin Globulin Ratio 1.3 (1.0-2.8); Alkaline Phosphatase 73 U/L (38-126); Aspartate Aminotransferase 28 IU/L (14-36); BUN Creatinine Ratio 8.6 (6-22); Bilirubin Total 0.2 mg/dL (0.2-1.3); Blood Urea Nitrogen 8 mg/dL (7-17); Calcium 9.6 mg/dL (8.4-10.2); Carbon Dioxide 31 mmol/L (22-32); Chloride 101 mmol/L (98-107); Estimated Glomerular Filt Rate > 60.0 mL/min (>60); Globulin 3.1 g/dL (1.7-4.1); Glucose 94 mg/dL (70-100); HEMOLYSIS < 15 (0-50); Potassium 4.6 mmol/L (3.4-5.1); Sodium 137 mmol/L (137-145); Total Protein 7.1 g/dL (6.3-8.2)
== END ==
PROVIDERS: Internal Medicine Rheumatology; Family Provider Family Medicine; PCP Family Medicine; Referring Provider Nurse Practitioner Family; Visit Provider Nurse Practitioner Family
DX: L08.9 Local infection of the skin and subcutaneous tissue, unspecified (principal); M34.9 Systemic sclerosis, unspecified
CPT/HCPCS: 36415; 73130; 80053; 85025; 85651; 86140

== ENCOUNTER → 2021-09-09 11:23 | Outpatient (CLI) | payer MEDICARE, MEDICAID, SELFPAY | PROVIDERS: Family Provider Family Medicine; PCP Family Medicine; Referring Provider Family Medicine; Visit Provider Nurse Practitioner Family | DX: S61.200A Unspecified open wound of right index finger without damage to nail, initial encounter (principal); M34.1 CR(E)ST syndrome; L08.9 Local infection of the skin and subcutaneous tissue, unspecified; M34.9 Systemic sclerosis, unspecified | CPT/HCPCS: 11042; 36415; 73130; 80053; 85025; 85651; 86140; 87070; 87075; 87077; 87186; 87205; 99213; 99214 ==

== ENCOUNTER → 2021-09-16 10:28 | Outpatient (CLI) | payer MEDICARE, MEDICAID, SELFPAY | PROVIDERS: Family Provider Family Medicine; PCP Family Medicine; Referring Provider Family Medicine; Visit Provider Nurse Practitioner Family | DX: M34.1 CR(E)ST syndrome (principal); S61.200A Unspecified open wound of right index finger without damage to nail, initial encounter; L08.9 Local infection of the skin and subcutaneous tissue, unspecified | CPT/HCPCS: 97597 ==

== ENCOUNTER → 2021-09-30 10:20 | Outpatient (CLI) | payer MEDICARE, MEDICAID, SELFPAY | PROVIDERS: Family Provider Family Medicine; PCP Family Medicine; Referring Provider Family Medicine; Visit Provider Nurse Practitioner Family | DX: M34.1 CR(E)ST syndrome (principal); S61.200A Unspecified open wound of right index finger without damage to nail, initial encounter | CPT/HCPCS: 97597 ==

== ENCOUNTER → 2021-10-07 09:53 | Outpatient (CLI) | payer MEDICARE, MEDICAID, SELFPAY | PROVIDERS: Family Provider Family Medicine; PCP Family Medicine; Referring Provider Family Medicine; Visit Provider Nurse Practitioner Family | DX: M34.1 CR(E)ST syndrome (principal); S61.300A Unspecified open wound of right index finger with damage to nail, initial encounter; L08.9 Local infection of the skin and subcutaneous tissue, unspecified | CPT/HCPCS: 36415; 80053; 85025; 85651; 86140; 87070; 87075; 87077; 87186; 87205; 97597; 99213 ==

== ENCOUNTER → 2021-10-07 10:55 | Outpatient (CLI) | payer MEDICARE, MEDICAID, SELFPAY ==
[2021-10-07 12:57] LABS: Add Manual Diff / Slide Review NO; Basophils Absolute Auto 100 /uL (0-100); Basophils Percent Auto 1.1 % (0-2); Eosinophils Absolute Auto 200 /uL (0-450); Eosinophils Percent Auto 2.8 % (2-4); Hematocrit 33.9 % (36-46); Hemoglobin 10.8 g/dL (12.0-16.0); Lymphocytes Absolute Auto 1900 /uL (1100-4500); Mean Corpuscular Hemoglobin 28.5 PG (26-34); Mean Corpuscular Volume 89.1 fL (80-100); Monocytes Absolute Auto 500 /uL (0-900); Monocytes Percent Auto 7.7 % (3-14); Neutrophils Absolute Auto 4200 /uL (1500-7000); Neutrophils Percent Auto 61.4 % (50-75); Platelet Count 382 X10^3/uL (150-400); Red Cell Distribution Width 15.2 % (11.6-14.8); White Blood Cell Count 6.9 X10^3/uL (4.5-11.0)
[2021-10-07 13:17] LABS: Erythrocyte Sedimentation Rate 20 MM/HR (0-20)
[2021-10-07 14:30] LABS: Alanine Aminotransferase 15 IU/L (<35); Albumin Globulin Ratio 1.3 (1.0-2.8); Alkaline Phosphatase 80 U/L (38-126); Aspartate Aminotransferase 28 IU/L (14-36); Bilirubin Total 0.2 mg/dL (0.2-1.3); Blood Urea Nitrogen 8 mg/dL (7-17); C-Reactive Protein Quant 0.8 mg/dL (<1.0); Calcium 9.2 mg/dL (8.4-10.2); Carbon Dioxide 31 mmol/L (22-32); Chloride 100 mmol/L (98-107); Estimated Glomerular Filt Rate 58.7 mL/min (>60); Glucose 70 mg/dL (70-100); HEMOLYSIS < 15 (0-50); Potassium 4.9 mmol/L (3.4-5.1); Sodium 138 mmol/L (137-145)
== END ==
PROVIDERS: Family Provider Family Medicine; PCP Family Medicine; Referring Provider Nurse Practitioner Family; Visit Provider Nurse Practitioner Family
DX: L08.9 Local infection of the skin and subcutaneous tissue, unspecified (principal)
CPT/HCPCS: 36415; 80053; 85025; 85651; 86140

== ENCOUNTER → 2021-10-13 08:02 | Outpatient (CLI) | payer MEDICARE, MEDICAID, SELFPAY ==
--- NOTE | 2021-10-13 08:07 | DI.MRI.S_ITS ---
PROCEDURE: MR HAND RT WO/W CON INDICATIONS: Unspecified open wound of right index finger witho TECHNIQUE: Noncontrast coronal T1 spin echo and STIR, sagittal T1 spin echo with fat saturation and STIR, axial T1 spin echo and T2 fast spin echo with fat saturation. After the administration of contrast, axial/sagittal/coronal T1 spin echo with fat saturation through the right hand . COMPARISON: [facility], CR, XR FINGER LT MIN 2V, 07/08/2021, 11:20. FINDINGS: Suboptimal evaluation secondary to difficulty with patient positioning. No acute fracture seen. There is marrow edema at the 2nd MCP joint, with extensive soft tissue swelling. There is dislocated appearance 2nd MCP joint. There is also marked MCP flexion of the remaining fingers with subluxation. No discrete mass is identified. There is flexor tenosynovitis involving the middle finger. The extensor tendons are grossly intact although suboptimal evaluation secondary to flexion at the MCP joints. There is reactive periarticular soft tissue enhancement at 2nd MCP joint. No discrete enhancing mass lesion is seen. No definite erosions are identified although limited evaluation given positioning, possibly flexion contracture. IMPRESSION: Prominent marrow and soft tissue edema at the 2nd MCP joint, with dislocated (versus severe subluxed) appearance. This could represent infectious or inflammatory/erosive arthropathy. In particular, if there is no history of trauma. Additional marked flexion/contracture involving the remaining fingers. No discrete mass. Middle finger flexor tenosynovitis. Dictated by: Antonio Faust M.D. on 10/13/2021 at 12:02 Approved by: Antonio Faust M.D. on 10/13/2021 at 12:17
== END ==
PROVIDERS: Family Provider Family Medicine; PCP Family Medicine; Referring Provider Family Medicine; Visit Provider Family Medicine
DX: S61.200A Unspecified open wound of right index finger without damage to nail, initial encounter (principal); M65.841 Other synovitis and tenosynovitis, right hand; X58.XXXA Exposure to other specified factors, initial encounter
CPT/HCPCS: 73220; A9579

== ENCOUNTER → 2021-10-14 10:27 | Outpatient (CLI) | payer MEDICARE, MEDICAID, SELFPAY | PROVIDERS: Family Provider Family Medicine; PCP Family Medicine; Referring Provider Family Medicine; Visit Provider Family Medicine | DX: M34.1 CR(E)ST syndrome (principal); S61.200A Unspecified open wound of right index finger without damage to nail, initial encounter; L08.9 Local infection of the skin and subcutaneous tissue, unspecified | CPT/HCPCS: 97597; 99213 ==

== ENCOUNTER → 2021-10-28 13:56 | Outpatient (CLI) | payer MEDICARE, MEDICAID, SELFPAY | PROVIDERS: Family Provider Family Medicine; PCP Family Medicine; Referring Provider Family Medicine; Visit Provider Family Medicine | DX: M34.1 CR(E)ST syndrome (principal); S61.200A Unspecified open wound of right index finger without damage to nail, initial encounter; L08.9 Local infection of the skin and subcutaneous tissue, unspecified; M86.9 Osteomyelitis, unspecified | CPT/HCPCS: 11042; 36415; 80053; 85025; 85651; 86140; 99212 ==

== ENCOUNTER → 2021-10-28 14:55 | Outpatient (CLI) | payer MEDICARE, MEDICAID, SELFPAY ==
[2021-10-28 16:00] LABS: Add Manual Diff / Slide Review NO; Basophils Absolute Auto 100 /uL (0-100); Eosinophils Absolute Auto 100 /uL (0-450); Eosinophils Percent Auto 1.2 % (2-4); Hematocrit 31.3 % (36-46); Hemoglobin 10.3 g/dL (12.0-16.0); Lymphocytes Absolute Auto 2000 /uL (1100-4500); Lymphocytes Percent Auto 21.9 % (25-40); Mean Corpuscular HGB Conc 33.1 % (30-36); Mean Corpuscular Hemoglobin 29.2 PG (26-34); Mean Corpuscular Volume 88.1 fL (80-100); Monocytes Absolute Auto 600 /uL (0-900); Monocytes Percent Auto 6.4 % (3-14); Neutrophils Absolute Auto 6300 /uL (1500-7000); Neutrophils Percent Auto 69.5 % (50-75); Platelet Count 423 X10^3/uL (150-400); Red Blood Cell Count 3.55 X10^6/uL (4.0-5.2); Red Cell Distribution Width 14.8 % (11.6-14.8); White Blood Cell Count 9.1 X10^3/uL (4.5-11.0)
[2021-10-28 16:22] LABS: Alanine Aminotransferase 13 IU/L (<35); Albumin 4.2 g/dL (3.5-5.0); Albumin Globulin Ratio 1.2 (1.0-2.8); Alkaline Phosphatase 77 U/L (38-126); Aspartate Aminotransferase 32 IU/L (14-36); BUN Creatinine Ratio 6.5 (6-22); Bilirubin Total 0.3 mg/dL (0.2-1.3); Blood Urea Nitrogen 6 mg/dL (7-17); C-Reactive Protein Quant 5.1 mg/dL (<1.0); Calcium 9.1 mg/dL (8.4-10.2); Carbon Dioxide 30 mmol/L (22-32); Chloride 100 mmol/L (98-107); Estimated Glomerular Filt Rate > 60.0 mL/min (>60); Globulin 3.5 g/dL (1.7-4.1); Glucose 88 mg/dL (70-100); HEMOLYSIS < 15 (0-50); Potassium 4.3 mmol/L (3.4-5.1); Sodium 136 mmol/L (137-145); Total Protein 7.7 g/dL (6.3-8.2)
[2021-10-28 16:23] LABS: Erythrocyte Sedimentation Rate 47 MM/HR (0-20)
== END ==
PROVIDERS: Family Provider Family Medicine; PCP Family Medicine; Referring Provider Internal Medicine Rheumatology; Visit Provider Internal Medicine Rheumatology
DX: M34.9 Systemic sclerosis, unspecified (principal); L08.9 Local infection of the skin and subcutaneous tissue, unspecified
CPT/HCPCS: 36415; 80053; 85025; 85651; 86140

== ENCOUNTER → 2021-11-04 10:08 | Outpatient (CLI) | payer MEDICARE, MEDICAID, SELFPAY | PROVIDERS: Family Provider Family Medicine; PCP Family Medicine; Referring Provider Family Medicine; Visit Provider Nurse Practitioner Family | DX: S61.200A Unspecified open wound of right index finger without damage to nail, initial encounter (principal); M34.1 CR(E)ST syndrome; L08.9 Local infection of the skin and subcutaneous tissue, unspecified; M86.9 Osteomyelitis, unspecified | CPT/HCPCS: 97597 ==

== ENCOUNTER → 2021-11-14 09:52 | Outpatient (CLI) | payer MEDICARE, MEDICAID, SELFPAY | PROVIDERS: Family Provider Family Medicine; PCP Family Medicine; Referring Provider Family Medicine; Visit Provider Family Medicine | DX: S61.401A Unspecified open wound of right hand, initial encounter (principal) | CPT/HCPCS: 99213 ==

== ENCOUNTER → 2021-12-09 13:38 | Outpatient (CLI) | payer MEDICARE, MEDICAID, SELFPAY | PROVIDERS: Family Provider Family Medicine; PCP Family Medicine; Referring Provider Family Medicine; Visit Provider Nurse Practitioner Family | DX: S61.200A Unspecified open wound of right index finger without damage to nail, initial encounter (principal); M34.1 CR(E)ST syndrome; L08.9 Local infection of the skin and subcutaneous tissue, unspecified; M86.9 Osteomyelitis, unspecified | CPT/HCPCS: 97597; 99212 ==

== ENCOUNTER → 2021-12-16 11:11 | Outpatient (CLI) | payer MEDICARE, MEDICAID, SELFPAY | PROVIDERS: Family Provider Family Medicine; PCP Family Medicine; Referring Provider Family Medicine; Visit Provider Nurse Practitioner Family | DX: L98.496 Non-pressure chronic ulcer of skin of other sites with bone involvement without evidence of necrosis (principal); L08.9 Local infection of the skin and subcutaneous tissue, unspecified; M34.9 Systemic sclerosis, unspecified; I73.00 Raynaud's syndrome without gangrene; Z89.021 Acquired absence of right finger(s) | CPT/HCPCS: 97597 ==

== ENCOUNTER → 2021-12-23 09:56 | Outpatient (CLI) | payer MEDICARE, MEDICAID, SELFPAY ==
--- NOTE | 2021-12-23 | DI.RAD.S_ITS ---
PROCEDURE: XR HAND LT MIN 3V INDICATIONS: Local infection of the skin and subcutaneous tissue, unspeci TECHNIQUE: 3 views of the hand(s) acquired. COMPARISON: [facility], CR, XR FINGER LT MIN 2V, 07/08/2021, 11:20. [facility], CR, XR HAND LT MIN 3V, 09/16/2020, 10:19. FINDINGS: Bones: Chronic and position of the 1st through 5th distal digits. No acute fractures or dislocations. Carpal bones are normally aligned. No suspicious bony lesions. Soft tissues: No suspicious soft tissue calcifications. Soft tissue swelling in the distal 2nd and 3rd finger. IMPRESSION: 1. Soft tissue swelling of the 2nd and 3rd distal finger. Recommend clinical correlation for soft tissue infection. Plain radiographs are not sensitive for early osteomyelitis. If there is clinical suspicion for bone infection, a triple phase bone scan or MRI with and without contrast may be helpful. 2. Amputation of the distal fingers. Dictated by: Chantelle Bedolla M.D. on 12/23/2021 at 18:24 Approved by: Chantelle Bedolla M.D. on 12/23/2021 at 18:27
== END ==
PROVIDERS: Family Provider Family Medicine; PCP Family Medicine; Referring Provider Nurse Practitioner Family; Visit Provider Nurse Practitioner Family
DX: L08.9 Local infection of the skin and subcutaneous tissue, unspecified (principal); M79.89 Other specified soft tissue disorders
CPT/HCPCS: 73130

== ENCOUNTER → 2021-12-23 09:59 | Outpatient (CLI) | payer MEDICARE, MEDICAID, SELFPAY | PROVIDERS: Family Provider Family Medicine; PCP Family Medicine; Referring Provider Family Medicine; Visit Provider Nurse Practitioner Family | DX: L08.9 Local infection of the skin and subcutaneous tissue, unspecified (principal); M79.89 Other specified soft tissue disorders; S61.303A Unspecified open wound of left middle finger with damage to nail, initial encounter; M34.1 CR(E)ST syndrome; I73.00 Raynaud's syndrome without gangrene; Z89.021 Acquired absence of right finger(s) | CPT/HCPCS: 73130; 87070; 87077; 87147; 87186; 87205; 97597; 99213 ==

== ENCOUNTER → 2022-01-13 10:24 | Outpatient (CLI) | payer MEDICARE, MEDICAID, SELFPAY | PROVIDERS: Family Provider Family Medicine; PCP Family Medicine; Referring Provider Family Medicine; Visit Provider Nurse Practitioner Family | DX: L98.491 Non-pressure chronic ulcer of skin of other sites limited to breakdown of skin (principal); M34.1 CR(E)ST syndrome; I73.00 Raynaud's syndrome without gangrene; Z89.021 Acquired absence of right finger(s) | CPT/HCPCS: 97597; 99212 ==

== ENCOUNTER → 2022-01-27 10:24 | Outpatient (CLI) | payer MEDICARE, MEDICAID, SELFPAY | PROVIDERS: Family Provider Family Medicine; PCP Family Medicine; Referring Provider Family Medicine; Visit Provider Nurse Practitioner Family | DX: S61.002A Unspecified open wound of left thumb without damage to nail, initial encounter (principal); M34.1 CR(E)ST syndrome; I73.00 Raynaud's syndrome without gangrene; Z89.021 Acquired absence of right finger(s) | CPT/HCPCS: 97597 ==

== ENCOUNTER → 2022-02-03 11:58 | Outpatient (CLI) | payer MEDICARE, MEDICAID, SELFPAY | PROVIDERS: Family Provider Family Medicine; PCP Family Medicine; Referring Provider Family Medicine; Visit Provider Nurse Practitioner Family | DX: S61.002A Unspecified open wound of left thumb without damage to nail, initial encounter (principal); M34.1 CR(E)ST syndrome; I73.00 Raynaud's syndrome without gangrene; Z89.021 Acquired absence of right finger(s) | CPT/HCPCS: 97597 ==

== ENCOUNTER → 2022-02-17 10:09 | Outpatient (CLI) | payer MEDICARE, MEDICAID, SELFPAY | PROVIDERS: Family Provider Family Medicine; PCP Family Medicine; Referring Provider Family Medicine; Visit Provider Nurse Practitioner Family | DX: Z09 Encounter for follow-up examination after completed treatment for conditions other than malignant neoplasm (principal); M34.1 CR(E)ST syndrome; I73.00 Raynaud's syndrome without gangrene; Z89.021 Acquired absence of right finger(s); Z87.2 Personal history of diseases of the skin and subcutaneous tissue | CPT/HCPCS: 99212; 99213 ==

== ENCOUNTER → 2022-04-18 09:56 | Outpatient (CLI) | payer MEDICARE, MEDICAID, SELFPAY | PROVIDERS: Family Provider Family Medicine; PCP Family Medicine; Referring Provider Family Medicine; Visit Provider Family Medicine | DX: M34.1 CR(E)ST syndrome (principal); I73.00 Raynaud's syndrome without gangrene; L98.494 Non-pressure chronic ulcer of skin of other sites with necrosis of bone; M86.141 Other acute osteomyelitis, right hand; L94.3 Sclerodactyly; Z89.029 Acquired absence of unspecified finger(s) | CPT/HCPCS: 11042; 87070; 87075; 87077; 87147; 87186; 87205; 99213; 99214 ==

== ENCOUNTER → 2022-04-27 12:07 | Outpatient (CLI) | payer MEDICARE, MEDICAID, SELFPAY | PROVIDERS: Family Provider Family Medicine; PCP Family Medicine; Referring Provider Family Medicine; Visit Provider Family Medicine | DX: L98.494 Non-pressure chronic ulcer of skin of other sites with necrosis of bone (principal); L98.492 Non-pressure chronic ulcer of skin of other sites with fat layer exposed; M86.141 Other acute osteomyelitis, right hand; B95.7 Other staphylococcus as the cause of diseases classified elsewhere; I73.00 Raynaud's syndrome without gangrene; M34.1 CR(E)ST syndrome; L94.3 Sclerodactyly; T36.8X5A Adverse effect of other systemic antibiotics, initial encounter; Z89.029 Acquired absence of unspecified finger(s) | CPT/HCPCS: 11042; 99214 ==

== ENCOUNTER → 2022-05-03 15:31 | Outpatient (CLI) | payer MEDICARE, MEDICAID, SELFPAY | PROVIDERS: Family Provider Family Medicine; PCP Family Medicine; Referring Provider Family Medicine; Visit Provider Family Medicine | DX: S61.200A Unspecified open wound of right index finger without damage to nail, initial encounter (principal); S61.201A Unspecified open wound of left index finger without damage to nail, initial encounter; M34.1 CR(E)ST syndrome; I73.00 Raynaud's syndrome without gangrene; M86.141 Other acute osteomyelitis, right hand; B95.7 Other staphylococcus as the cause of diseases classified elsewhere; Z89.029 Acquired absence of unspecified finger(s) | CPT/HCPCS: 11042 ==

== ENCOUNTER → 2022-05-17 13:17 | Outpatient (CLI) | payer MEDICARE, MEDICAID, SELFPAY | PROVIDERS: Family Provider Family Medicine; PCP Family Medicine; Referring Provider Family Medicine; Visit Provider Family Medicine | DX: L98.494 Non-pressure chronic ulcer of skin of other sites with necrosis of bone (principal); L98.492 Non-pressure chronic ulcer of skin of other sites with fat layer exposed; M34.1 CR(E)ST syndrome; I73.00 Raynaud's syndrome without gangrene; M86.141 Other acute osteomyelitis, right hand; B95.7 Other staphylococcus as the cause of diseases classified elsewhere; Z79.2 Long term (current) use of antibiotics; Z89.021 Acquired absence of right finger(s); Z89.022 Acquired absence of left finger(s) | CPT/HCPCS: 11042; 99213; 99214 ==

== ENCOUNTER → 2022-05-19 08:05 | Outpatient (CLI) | payer MEDICARE, MEDICAID, SELFPAY ==
[2022-05-19 09:14] LABS: Add Manual Diff / Slide Review NO; Basophils Absolute Auto 200 /uL (0-100); Basophils Percent Auto 2.9 % (0-2); Eosinophils Absolute Auto 400 /uL (0-450); Eosinophils Percent Auto 6.6 % (2-4); Hematocrit 33.3 % (36-46); Hemoglobin 10.8 g/dL (12.0-16.0); Lymphocytes Absolute Auto 1900 /uL (1100-4500); Lymphocytes Percent Auto 29.1 % (25-40); Mean Corpuscular HGB Conc 32.6 % (30-36); Mean Corpuscular Hemoglobin 28.7 PG (26-34); Mean Corpuscular Volume 87.9 fL (80-100); Monocytes Absolute Auto 600 /uL (0-900); Monocytes Percent Auto 9.9 % (3-14); Neutrophils Absolute Auto 3300 /uL (1500-7000); Neutrophils Percent Auto 51.5 % (50-75); Platelet Count 429 X10^3/uL (150-400); Red Blood Cell Count 3.78 X10^6/uL (4.0-5.2); Red Cell Distribution Width 13.9 % (11.6-14.8); White Blood Cell Count 6.5 X10^3/uL (4.5-11.0)
[2022-05-19 09:37] LABS: Erythrocyte Sedimentation Rate 47 MM/HR (0-20)
[2022-05-19 09:40] LABS: Alanine Aminotransferase 10 IU/L (<35); Albumin Globulin Ratio 1.1 (1.0-2.8); Alkaline Phosphatase 70 U/L (38-126); Aspartate Aminotransferase 23 IU/L (14-36); BUN Creatinine Ratio 10.4 (6-22); Bilirubin Total 0.3 mg/dL (0.2-1.3); Blood Urea Nitrogen 10 mg/dL (7-17); C-Reactive Protein Quant 0.8 mg/dL (<1.0); Calcium 9.1 mg/dL (8.4-10.2); Carbon Dioxide 31 mmol/L (22-32); Chloride 99 mmol/L (98-107); Estimated Glomerular Filt Rate > 60 mL/min (>60); Globulin 3.7 g/dL (1.7-4.1); Glucose 78 mg/dL (70-100); HEMOLYSIS < 15 (0-50); Potassium 4.8 mmol/L (3.4-5.1); Sodium 135 mmol/L (137-145); Total Protein 7.7 g/dL (6.3-8.2)
[2022-05-19 09:48] LABS: Cholesterol 269 mg/dL (140-199); HDL Cholesterol 55 mg/dL (40-60); LDL Cholesterol Calculated 176 mg/dL (<100); Triglycerides 189 mg/dL (35-150); Uric Acid 2.6 mg/dL (2.5-6.2)
[2022-05-19 11:56] LABS: Creatinine Urine Random 30.3 mg/dL
[2022-05-19 12:02] LABS: Microalbumin Urine Random < 0.6 mg/dL (0-1.6)
== END ==
PROVIDERS: Family Provider Family Medicine; PCP Family Medicine; Referring Provider Family Medicine; Visit Provider Family Medicine
DX: I73.00 Raynaud's syndrome without gangrene; G89.4 Chronic pain syndrome; L08.9 Local infection of the skin and subcutaneous tissue, unspecified; R73.9 Hyperglycemia, unspecified
CPT/HCPCS: 36415; 80053; 80061; 82043; 82570; 84550; 85025; 85651; 86140

== ENCOUNTER → 2022-05-31 10:57 | Outpatient (CLI) | payer MEDICARE, MEDICAID, SELFPAY | PROVIDERS: Family Provider Family Medicine; PCP Family Medicine; Referring Provider Family Medicine; Visit Provider Family Medicine | DX: L98.494 Non-pressure chronic ulcer of skin of other sites with necrosis of bone (principal); M34.1 CR(E)ST syndrome; I73.00 Raynaud's syndrome without gangrene; M86.141 Other acute osteomyelitis, right hand; B95.7 Other staphylococcus as the cause of diseases classified elsewhere; Z79.2 Long term (current) use of antibiotics; Z89.029 Acquired absence of unspecified finger(s) | CPT/HCPCS: 11042; 99214 ==

== ENCOUNTER → 2022-06-07 14:24 | Outpatient (CLI) | payer MEDICARE, MEDICAID, SELFPAY | PROVIDERS: Family Provider Family Medicine; PCP Family Medicine; Referring Provider Family Medicine; Visit Provider Family Medicine | DX: L98.494 Non-pressure chronic ulcer of skin of other sites with necrosis of bone (principal); M34.1 CR(E)ST syndrome; I73.00 Raynaud's syndrome without gangrene; M86.141 Other acute osteomyelitis, right hand; B95.7 Other staphylococcus as the cause of diseases classified elsewhere; Z79.2 Long term (current) use of antibiotics; Z89.029 Acquired absence of unspecified finger(s) | CPT/HCPCS: 11042 ==

== ENCOUNTER → 2022-06-14 10:47 | Outpatient (CLI) | payer MEDICARE, MEDICAID, SELFPAY | PROVIDERS: Family Provider Family Medicine; PCP Family Medicine; Referring Provider Orthopaedic Surgery; Visit Provider Family Medicine | DX: L98.494 Non-pressure chronic ulcer of skin of other sites with necrosis of bone (principal); M34.1 CR(E)ST syndrome; I73.00 Raynaud's syndrome without gangrene; M86.141 Other acute osteomyelitis, right hand; B95.7 Other staphylococcus as the cause of diseases classified elsewhere; Z89.029 Acquired absence of unspecified finger(s) | CPT/HCPCS: 11042; 99212 ==

== ENCOUNTER → 2022-06-28 15:17 | Outpatient (CLI) | payer MEDICARE, MEDICAID, SELFPAY | PROVIDERS: Family Provider Family Medicine; PCP Family Medicine; Referring Provider Family Medicine; Visit Provider Family Medicine | DX: S61.200A Unspecified open wound of right index finger without damage to nail, initial encounter (principal); M34.1 CR(E)ST syndrome; I73.00 Raynaud's syndrome without gangrene; L94.0 Localized scleroderma [morphea] | CPT/HCPCS: 99212 ==

== ENCOUNTER → 2022-07-11 14:27 | Outpatient (CLI) | payer MEDICARE, MEDICAID, SELFPAY | PROVIDERS: Family Provider Family Medicine; PCP Family Medicine; Referring Provider Family Medicine; Visit Provider Family Medicine | DX: S61.200A Unspecified open wound of right index finger without damage to nail, initial encounter (principal); M34.1 CR(E)ST syndrome | CPT/HCPCS: 99212 ==

== ENCOUNTER → 2022-08-02 09:29 | Outpatient (CLI) | payer MEDICARE, MEDICAID, SELFPAY | PROVIDERS: Family Provider Family Medicine; PCP Family Medicine; Referring Provider Family Medicine; Visit Provider Family Medicine | DX: S61.200A Unspecified open wound of right index finger without damage to nail, initial encounter (principal); M34.1 CR(E)ST syndrome; I73.00 Raynaud's syndrome without gangrene | CPT/HCPCS: 99212 ==

== ENCOUNTER → 2022-08-23 11:06 | Outpatient (CLI) | payer MEDICARE, MEDICAID, SELFPAY | PROVIDERS: Family Provider Family Medicine; PCP Family Medicine; Referring Provider Family Medicine; Visit Provider Family Medicine | DX: M34.1 CR(E)ST syndrome (principal); S61.200A Unspecified open wound of right index finger without damage to nail, initial encounter; S61.401A Unspecified open wound of right hand, initial encounter; S61.203A Unspecified open wound of left middle finger without damage to nail, initial encounter; I73.00 Raynaud's syndrome without gangrene | CPT/HCPCS: 97597; 99212; 99214 ==

== ENCOUNTER → 2022-09-01 09:20 | Outpatient (CLI) | payer MEDICARE, MEDICAID, SELFPAY | PROVIDERS: Family Provider Family Medicine; PCP Family Medicine; Referring Provider Orthopaedic Surgery; Visit Provider Nurse Practitioner Family | DX: I73.00 Raynaud's syndrome without gangrene (principal); S61.200A Unspecified open wound of right index finger without damage to nail, initial encounter; S61.401A Unspecified open wound of right hand, initial encounter; S61.203A Unspecified open wound of left middle finger without damage to nail, initial encounter | CPT/HCPCS: 99213 ==

== ENCOUNTER → 2022-09-13 10:37 | Outpatient (CLI) | payer MEDICARE, MEDICAID, SELFPAY | PROVIDERS: Family Provider Family Medicine; PCP Family Medicine; Referring Provider Family Medicine; Visit Provider Family Medicine | DX: M34.1 CR(E)ST syndrome (principal); S61.200A Unspecified open wound of right index finger without damage to nail, initial encounter; S61.401A Unspecified open wound of right hand, initial encounter; S61.203A Unspecified open wound of left middle finger without damage to nail, initial encounter | CPT/HCPCS: 11042; 97597 ==

== ENCOUNTER → 2022-10-11 11:34 | Outpatient (CLI) | payer MEDICARE, MEDICAID, SELFPAY | PROVIDERS: Family Provider Family Medicine; PCP Family Medicine; Referring Provider Family Medicine; Visit Provider Surgery | DX: M34.1 CR(E)ST syndrome (principal); S61.200A Unspecified open wound of right index finger without damage to nail, initial encounter; S61.203A Unspecified open wound of left middle finger without damage to nail, initial encounter; L94.0 Localized scleroderma [morphea]; S61.401A Unspecified open wound of right hand, initial encounter | CPT/HCPCS: 97597; 99212 ==

== ENCOUNTER → 2022-10-31 09:24 | Outpatient (CLI) | payer MEDICARE, MEDICAID, SELFPAY | PROVIDERS: Family Provider Family Medicine; PCP Family Medicine; Referring Provider Orthopaedic Surgery; Visit Provider Surgery | DX: S61.200A Unspecified open wound of right index finger without damage to nail, initial encounter (principal); S61.401A Unspecified open wound of right hand, initial encounter; S61.203A Unspecified open wound of left middle finger without damage to nail, initial encounter; M34.1 CR(E)ST syndrome; I73.00 Raynaud's syndrome without gangrene | CPT/HCPCS: 97597 ==

== ENCOUNTER → 2022-11-01 13:00 | Outpatient (CLI) | payer MEDICARE, MEDICAID, SELFPAY ==
--- NOTE | 2022-11-01 | DI.ECHO.S_ITS ---
[facility]---------+ [facility] +---------+ : : [address] : : : : [id number] : : : : Phone: [phone]+ Echocardiogram Report + + :Name: FÁTIMA BAKER Study Date: 11/01/2022 Height: 66 in : :[facility] ReadingLocation: Weight: 100 lb : : Gender: Female BSA: 1.5 m2 : :: 1970 Age: 52 yrs BP: 108/69 mmHg: :Reason For Study: SYSTERNIC SCLEROSIS : :Ordering Physician: HAYDER PEREA Performed By: Lyric Chung : :Referring: HAYDER PEREA : + + Interpretation Summary The ejection fraction is estimated to be 60-65%. There is no pericardial effusion. There is no significant valvular heart disease. Procedure: A two-dimensional transthoracic echocardiogram with color flow and Doppler was performed. The study quality was technically adequate. Comparison is made with the echocardiogram of 07/17/2017. The patient was in sinus rhythm with heart rates between 86-96 bpm during the exam. Left Ventricle: The left ventricle is normal in size and wall thickness. The ejection fraction is estimated to be 60-65%. Left ventricular wall motion is normal. Right Ventricle: The right ventricle is normal in size and function. Atria: The left atrium is mildly dilated. Right atrial size is normal. There is no Doppler evidence for an interatrial shunt. Mitral Valve: The mitral valve is normal in structure and function. There is trace mitral regurgitation. Aortic Valve: The aortic valve is trileaflet. The aortic valve opens well. There is no aortic valve stenosis. No aortic regurgitation is present. Tricuspid Valve: The tricuspid valve is normal in structure and function. No tricuspid regurgitation. Pulmonic Valve: The pulmonic valve is not well visualized. There is no pulmonic valvular regurgitation. Great Vessels: The aortic root is normal size. The ascending aorta could not be visualized. The IVC is of normal diameter and collapses greater than 50% with a sniff. This suggests a low right atrial pressure of 3 mm Hg. Pericardium/ Pleura There is no pericardial effusion. There is no pleural effusion. MMode/2D Measurements & Calculations LVIDd: 4.9 cm LVOT diam: 2.1 cm LVIDs: 3.1 cm Ao root diam: 3.1 cm FS: 36.8 % Ao Arch Diam (Prox Trans): 2.4 cm IVSd: 0.56 cm LVPWd: 0.77 cm LV ramos. diameter/BSA (cm/m^2): 3.3 LV sys. diameter/BSA (cm/m^2): 2.1 LA A2 area: 17.2 cm2 RA long axis: 4.3 cm LA A4 area: 16.9 cm2 RA area: 11.0 cm2 LA length (vol): 4.3 cm RA vol: 24.2 ml LA vol: 57.3 ml RA : 16.3 ml/m2 LA vol index: 38.5 ml/m2 IVC diam: 1.6 cm RVD1 (basal): 3.1 cm RVD2 (mid): 2.2 cm TAPSE: 2.5 cm Doppler Measurements & Calculations Ao V2 max: 187.6 cm/sec LVOT Max Peter: 119.8 cm/sec Ao V2 mean: 131.3 cm/sec LV V1 max P.7 mmHg Ao max P.1 mmHg LV V1 VTI: 19.5 cm Ao mean P.7 mmHg JENNIFER(I,D): 2.0 cm2 Ao V2 VTI: 33.0 cm JENNIFER(V,D): 2.2 cm2 sev ratio: 0.59 JENNIFER indexed to BSA (cm^2/m^2): 1.3 MV E max peter: 83.1 cm/sec PA V2 max: 107.1 cm/sec MV A max peter: 90.2 cm/sec PA V2 mean: 70.2 cm/sec MV E/A: 0.92 PA mean P.3 mmHg Med Peak E' Peter: 10.9 cm/sec PA pr(Accel): 16.1 mmHg E/E' med: 7.7 Lat Peak E' Peter: 9.8 cm/sec E/E' lat: 8.5 E/e' average: 8.1 MV dec time: 0.17 sec SV(LVOT): 66.2 ml Reading Physician:03:10 PM
== END ==
PROVIDERS: Family Provider Family Medicine; PCP Family Medicine; Referring Provider Internal Medicine Rheumatology; Visit Provider Internal Medicine Rheumatology
DX: M34.9 Systemic sclerosis, unspecified (principal)
CPT/HCPCS: 93306

== ENCOUNTER → 2022-11-24 12:38 | Outpatient (CLI) | payer MEDICARE, MEDICAID, SELFPAY | PROVIDERS: Family Provider Family Medicine; PCP Family Medicine; Referring Provider Family Medicine; Visit Provider Surgery | DX: M34.1 CR(E)ST syndrome (principal); S61.401A Unspecified open wound of right hand, initial encounter; S61.402A Unspecified open wound of left hand, initial encounter; L94.0 Localized scleroderma [morphea]; I73.00 Raynaud's syndrome without gangrene; R20.9 Unspecified disturbances of skin sensation | CPT/HCPCS: 97597; 99212; 99213 ==

== ENCOUNTER → 2022-12-13 10:52 | Outpatient (CLI) | payer MEDICARE, MEDICAID, SELFPAY | PROVIDERS: Family Provider Family Medicine; PCP Family Medicine; Referring Provider Family Medicine; Visit Provider Surgery | DX: S61.401A Unspecified open wound of right hand, initial encounter (principal); S61.402A Unspecified open wound of left hand, initial encounter; M34.1 CR(E)ST syndrome; I73.00 Raynaud's syndrome without gangrene; L94.0 Localized scleroderma [morphea]; L53.9 Erythematous condition, unspecified; M79.604 Pain in right leg; M79.605 Pain in left leg | CPT/HCPCS: 11042; 97597; 99213 ==

== ENCOUNTER → 2022-12-27 13:32 | Outpatient (CLI) | payer MEDICARE, MEDICAID, SELFPAY | PROVIDERS: Family Provider Family Medicine; PCP Family Medicine; Referring Provider Family Medicine; Visit Provider Surgery | DX: M34.1 CR(E)ST syndrome (principal); S61.200A Unspecified open wound of right index finger without damage to nail, initial encounter; S61.207D Unspecified open wound of left little finger without damage to nail, subsequent encounter; L53.9 Erythematous condition, unspecified | CPT/HCPCS: 97597 ==

== ENCOUNTER → 2023-01-03 13:51 | Outpatient (CLI) | payer MEDICARE, MEDICAID, SELFPAY | PROVIDERS: Family Provider Family Medicine; PCP Family Medicine; Referring Provider Family Medicine; Visit Provider Surgery | DX: M34.1 CR(E)ST syndrome (principal); S61.200A Unspecified open wound of right index finger without damage to nail, initial encounter; S61.207A Unspecified open wound of left little finger without damage to nail, initial encounter; I73.00 Raynaud's syndrome without gangrene; L94.0 Localized scleroderma [morphea] | CPT/HCPCS: 99213 ==

== ENCOUNTER → 2023-01-16 09:29 | Outpatient (CLI) | payer MEDICARE, MEDICAID, SELFPAY | PROVIDERS: Family Provider Family Medicine; PCP Family Medicine; Referring Provider Family Medicine; Visit Provider Surgery | DX: M34.1 CR(E)ST syndrome (principal); S61.200A Unspecified open wound of right index finger without damage to nail, initial encounter; S61.001A Unspecified open wound of right thumb without damage to nail, initial encounter; S61.402A Unspecified open wound of left hand, initial encounter; L94.0 Localized scleroderma [morphea]; L94.2 Calcinosis cutis; M79.641 Pain in right hand; M79.642 Pain in left hand; M20.091 Other deformity of right finger(s); M79.89 Other specified soft tissue disorders | CPT/HCPCS: 73130; 97597; 99212; 99213 ==

== ENCOUNTER → 2023-01-16 10:17 | Outpatient (CLI) | payer MEDICARE, MEDICAID, SELFPAY ==
--- NOTE | 2023-01-16 10:19 | DI.RAD.S_ITS ---
PROCEDURE: XR HAND RT MIN 3V INDICATIONS: ulcer on distal right thumb TECHNIQUE: 3 views of the hand(s) acquired. COMPARISON: [facility], CR, XR HAND LT MIN 3V, 12/23/2021, 9:59. [facility], CR, XR HAND RT MIN 3V, 12/09/2020, 9:47. FINDINGS: Bones: Contractures of the fingers, significantly limiting evaluation. In the proximal phalanx of the thumb, there is ulceration, as well as increased bony resorption. Bony resorption and prior amputations are also seen in the 2nd, 3rd, 4th, and 5th phalanges, difficult to evaluate in the setting of contractures. Soft tissues: Small amount of some soft tissue gas is present at the tip of the thumb. IMPRESSION: Soft tissue swelling, small amount of gas, and further bony resorption of the tip of the thumb compared to 2020, which terminates at the proximal phalanx. Please consider MRI to further evaluate for osteomyelitis if necessary. Contractures of the 2nd through 5th fingers, with areas of bony resorption and amputation, also seen previously, but not well evaluated due to positioning. Dictated by: Juan Jose Arauz M.D. on 01/16/2023 at 11:00 Approved by: Juan Jose Arauz M.D. on 01/16/2023 at 11:03
== END ==
PROVIDERS: Family Provider Family Medicine; PCP Family Medicine; Referring Provider Surgery; Visit Provider Surgery
DX: S61.001A Unspecified open wound of right thumb without damage to nail, initial encounter (principal); M20.091 Other deformity of right finger(s); M79.89 Other specified soft tissue disorders
CPT/HCPCS: 73130

== ENCOUNTER → 2023-01-30 10:42 | Outpatient (CLI) | payer MEDICARE, MEDICAID, SELFPAY | PROVIDERS: Family Provider Family Medicine; PCP Family Medicine; Referring Provider Family Medicine; Visit Provider Surgery | DX: L98.492 Non-pressure chronic ulcer of skin of other sites with fat layer exposed (principal); I73.00 Raynaud's syndrome without gangrene; L94.0 Localized scleroderma [morphea]; Z89.022 Acquired absence of left finger(s); Z89.021 Acquired absence of right finger(s) | CPT/HCPCS: 97597 ==

== ENCOUNTER → 2023-02-13 10:19 | Outpatient (CLI) | payer MEDICARE, MEDICAID, SELFPAY | PROVIDERS: Family Provider Family Medicine; PCP Family Medicine; Referring Provider Orthopaedic Surgery; Visit Provider Surgery | DX: M34.1 CR(E)ST syndrome (principal); S61.200A Unspecified open wound of right index finger without damage to nail, initial encounter; S61.402A Unspecified open wound of left hand, initial encounter; I73.00 Raynaud's syndrome without gangrene; L94.0 Localized scleroderma [morphea]; M79.642 Pain in left hand | CPT/HCPCS: 97597; 99212; 99213 ==

== ENCOUNTER → 2023-03-06 09:30 | Outpatient (CLI) | payer MEDICARE, MEDICAID, SELFPAY | PROVIDERS: Family Provider Family Medicine; PCP Family Medicine; Referring Provider Orthopaedic Surgery; Visit Provider Surgery | DX: M34.1 CR(E)ST syndrome (principal); L94.0 Localized scleroderma [morphea]; S61.402A Unspecified open wound of left hand, initial encounter; I73.00 Raynaud's syndrome without gangrene; S61.200D Unspecified open wound of right index finger without damage to nail, subsequent encounter | CPT/HCPCS: 99213 ==

== ENCOUNTER → 2023-04-03 10:13 | Outpatient (CLI) | payer MEDICARE, MEDICAID, SELFPAY | PROVIDERS: Family Provider Family Medicine; PCP Family Medicine; Referring Provider Orthopaedic Surgery; Visit Provider Surgery | DX: M34.1 CR(E)ST syndrome (principal); S61.207A Unspecified open wound of left little finger without damage to nail, initial encounter; I73.00 Raynaud's syndrome without gangrene | CPT/HCPCS: 97597; 99212; 99213 ==

== ENCOUNTER → 2023-04-25 09:07 | Outpatient (CLI) | payer MEDICARE, MEDICAID, SELFPAY | PROVIDERS: Family Provider Family Medicine; PCP Family Medicine; Referring Provider Orthopaedic Surgery; Visit Provider Surgery | DX: E78.5 Hyperlipidemia, unspecified (principal); F33.1 Major depressive disorder, recurrent, moderate; F41.9 Anxiety disorder, unspecified; I73.00 Raynaud's syndrome without gangrene; R73.9 Hyperglycemia, unspecified; S61.207A Unspecified open wound of left little finger without damage to nail, initial encounter; M79.644 Pain in right finger(s) | CPT/HCPCS: 36415; 80061; 82728; 83036; 83540; 83550; 85025; 97597 ==

== ENCOUNTER → 2023-04-25 09:29 | Outpatient (CLI) | payer MEDICARE, MEDICAID, SELFPAY ==
[2023-04-25 10:26] LABS: Add Manual Diff / Slide Review NO; Basophils Absolute Auto 100 /uL (0-100); Basophils Percent Auto 0.9 % (0-2); Eosinophils Absolute Auto 200 /uL (0-450); Eosinophils Percent Auto 2.8 % (2-4); Hematocrit 30.3 % (36-46); Hemoglobin 10.1 g/dL (12.0-16.0); Lymphocytes Absolute Auto 1700 /uL (1100-4500); Lymphocytes Percent Auto 19.8 % (25-40); Mean Corpuscular HGB Conc 33.4 % (30-36); Mean Corpuscular Hemoglobin 28.3 PG (26-34); Mean Corpuscular Volume 84.5 fL (80-100); Monocytes Absolute Auto 800 /uL (0-900); Monocytes Percent Auto 9.1 % (3-14); Neutrophils Absolute Auto 5800 /uL (1500-7000); Neutrophils Percent Auto 67.4 % (50-75); Platelet Count 396 X10^3/uL (150-400); Red Blood Cell Count 3.58 X10^6/uL (4.0-5.2); Red Cell Distribution Width 15.2 % (11.6-14.8); White Blood Cell Count 8.6 X10^3/uL (4.5-11.0)
[2023-04-25 10:39] LABS: Cholesterol 185 mg/dL (140-199); HDL Cholesterol 52 mg/dL (40-60); LDL Cholesterol Calculated 104 mg/dL (<100); Triglycerides 145 mg/dL (35-150)
[2023-04-25 10:53] LABS: HEMOLYSIS < 15 (0-50); Iron 49 ug/dL (37-170)
[2023-04-25 11:01] LABS: Transferrin 280 mg/dL (206-381)
[2023-04-25 11:08] LABS: Percent Iron Saturation 13 % (15-50); Total Iron Binding Capacity 376 ug/dL (265-497)
[2023-04-25 11:12] LABS: Ferritin 8 ng/mL (11-264)
[2023-04-26 08:13] LABS: Labcorp Hemoglobin (Hb) A1c 5.6 % (4.8-5.6)
== END ==
PROVIDERS: Family Provider Family Medicine; PCP Family Medicine; Referring Provider Family Medicine; Visit Provider Family Medicine
DX: E78.5 Hyperlipidemia, unspecified (principal); F33.1 Major depressive disorder, recurrent, moderate; F41.9 Anxiety disorder, unspecified; I73.00 Raynaud's syndrome without gangrene; R73.9 Hyperglycemia, unspecified
CPT/HCPCS: 36415; 80061; 82728; 83036; 83540; 83550; 85025

== ENCOUNTER → 2023-05-16 09:57 | Outpatient (CLI) | payer MEDICARE, MEDICAID, SELFPAY | PROVIDERS: Family Provider Family Medicine; PCP Family Medicine; Referring Provider Orthopaedic Surgery; Visit Provider Surgery | DX: M34.1 CR(E)ST syndrome (principal); S61.002A Unspecified open wound of left thumb without damage to nail, initial encounter; S61.206A Unspecified open wound of right little finger without damage to nail, initial encounter; L94.0 Localized scleroderma [morphea]; I73.00 Raynaud's syndrome without gangrene | CPT/HCPCS: 97597; 99212; 99213 ==

== ENCOUNTER → 2023-06-14 14:17 | Outpatient (CLI) | payer MEDICARE, SELFPAY | PROVIDERS: Family Provider Family Medicine; PCP Family Medicine; Referring Provider Family Medicine; Visit Provider Surgery | DX: S61.002A Unspecified open wound of left thumb without damage to nail, initial encounter (principal); M34.1 CR(E)ST syndrome; I73.00 Raynaud's syndrome without gangrene | CPT/HCPCS: 99213 ==

== ENCOUNTER → 2023-07-18 09:28 | Outpatient (CLI) | payer MEDICARE, SELFPAY | PROVIDERS: Family Provider Family Medicine; PCP Family Medicine; Referring Provider Orthopaedic Surgery; Visit Provider Surgery | DX: S61.002A Unspecified open wound of left thumb without damage to nail, initial encounter (principal); I73.00 Raynaud's syndrome without gangrene; M34.1 CR(E)ST syndrome; S61.002D Unspecified open wound of left thumb without damage to nail, subsequent encounter | CPT/HCPCS: 99212; 99213 ==

== ENCOUNTER → 2023-08-28 11:08 | Outpatient (CLI) | payer MEDICARE, SELFPAY | PROVIDERS: Family Provider Family Medicine; PCP Family Medicine; Referring Provider Orthopaedic Surgery; Visit Provider Surgery | DX: L85.9 Epidermal thickening, unspecified (principal) | CPT/HCPCS: 99212; 99213 ==

== ENCOUNTER → 2023-10-09 14:58 | Outpatient (CLI) | payer MEDICARE, SELFPAY | PROVIDERS: Family Provider Family Medicine; PCP Family Medicine; Referring Provider Orthopaedic Surgery; Visit Provider Surgery | DX: M34.1 CR(E)ST syndrome (principal); L85.9 Epidermal thickening, unspecified; L98.492 Non-pressure chronic ulcer of skin of other sites with fat layer exposed | CPT/HCPCS: 97597; 99213 ==

== ENCOUNTER → 2023-11-07 15:19 | Outpatient (CLI) | payer MEDICARE, SELFPAY | PROVIDERS: Family Provider Family Medicine; PCP Family Medicine; Referring Provider Orthopaedic Surgery; Visit Provider Surgery | DX: I73.00 Raynaud's syndrome without gangrene (principal); S61.207A Unspecified open wound of left little finger without damage to nail, initial encounter; S61.002D Unspecified open wound of left thumb without damage to nail, subsequent encounter | CPT/HCPCS: 97597; 99212; 99213 ==

== ENCOUNTER → 2023-12-06 10:19 | Outpatient (CLI) | payer MEDICARE, SELFPAY | LOC: WC 10:24 | PROVIDERS: Family Provider Family Medicine; PCP Family Medicine; Referring Provider Orthopaedic Surgery; Visit Provider Surgery | DX: M34.1 CR(E)ST syndrome (principal); M34.89 Other systemic sclerosis | CPT/HCPCS: 99213 ==

== ENCOUNTER → 2024-03-19 14:19 | Outpatient (CLI) | payer MEDICARE, SELFPAY | LOC: WC 14:22 | PROVIDERS: Family Provider Family Medicine; PCP Family Medicine; Referring Provider Family Medicine; Visit Provider Surgery | DX: L98.492 Non-pressure chronic ulcer of skin of other sites with fat layer exposed (principal); L95.9 Vasculitis limited to the skin, unspecified; M34.1 CR(E)ST syndrome; I73.00 Raynaud's syndrome without gangrene; M79.645 Pain in left finger(s); L94.9 Localized connective tissue disorder, unspecified; F32.A Depression, unspecified | CPT/HCPCS: 99213 ==

== ENCOUNTER → 2024-03-25 09:35 | Outpatient (CLI) | payer MEDICARE, SELFPAY | PROVIDERS: Family Provider Family Medicine; PCP Family Medicine; Referring Provider Family Medicine; Visit Provider Surgery | DX: L98.492 Non-pressure chronic ulcer of skin of other sites with fat layer exposed (principal); M34.1 CR(E)ST syndrome; I73.9 Peripheral vascular disease, unspecified; I73.00 Raynaud's syndrome without gangrene; M79.645 Pain in left finger(s) | CPT/HCPCS: 11042; 99213 ==

== ENCOUNTER → 2024-03-25 09:51 | Outpatient (CLI) | payer MEDICARE, SELFPAY ==
--- NOTE | 2024-03-25 09:53 | DI.RAD.S_ITS ---
PROCEDURE: XR HAND LT MIN 3V INDICATIONS: Increased pain in wound of left thumb TECHNIQUE: 3 views of the hand(s) acquired. COMPARISON: [facility], CR, XR HAND LT MIN 3V, 12/23/2021, 9:59. [facility], CR, XR HAND RT MIN 3V, 01/16/2023, 10:17. FINDINGS: Bones: Amputation of the distal 1st through 5th digits. The thumb is now amputated at the 1st phalangeal head. Overlying soft tissue unremarkable Soft tissues: No suspicious soft tissue calcifications. IMPRESSION: Distal finger amputations, revised from the prior Approved by: Blayne Verde M.D. on 03/25/2024 at 18:14
== END ==
PROVIDERS: Family Provider Family Medicine; PCP Family Medicine; Referring Provider Surgery; Visit Provider Surgery
DX: L98.492 Non-pressure chronic ulcer of skin of other sites with fat layer exposed (principal); M34.1 CR(E)ST syndrome; I73.9 Peripheral vascular disease, unspecified; I73.00 Raynaud's syndrome without gangrene; M79.645 Pain in left finger(s); Z89.012 Acquired absence of left thumb; Z89.022 Acquired absence of left finger(s)
CPT/HCPCS: 11042; 73130

== ENCOUNTER → 2024-04-02 15:27 | Outpatient (CLI) | payer MEDICARE, SELFPAY | LOC: WC 15:27 | PROVIDERS: Family Provider Family Medicine; PCP Family Medicine; Referring Provider Family Medicine; Visit Provider Surgery | DX: L98.492 Non-pressure chronic ulcer of skin of other sites with fat layer exposed (principal); L95.9 Vasculitis limited to the skin, unspecified; L53.9 Erythematous condition, unspecified; M34.1 CR(E)ST syndrome; I73.00 Raynaud's syndrome without gangrene; M79.645 Pain in left finger(s) | CPT/HCPCS: 99213 ==

== ENCOUNTER → 2024-04-10 10:05 | Outpatient (CLI) | payer MEDICARE, SELFPAY ==
[2024-04-10 11:29] LABS: Add Manual Diff / Slide Review NO; Basophils Absolute Auto 100 /uL (0-100); Basophils Percent Auto 0.9 % (0-2); Eosinophils Absolute Auto 400 /uL (0-450); Eosinophils Percent Auto 5.1 % (2-4); Hematocrit 32.6 % (36-46); Hemoglobin 10.5 g/dL (12.0-16.0); Lymphocytes Absolute Auto 2400 /uL (1100-4500); Lymphocytes Percent Auto 28.5 % (25-40); Mean Corpuscular HGB Conc 32.1 % (30-36); Mean Corpuscular Hemoglobin 27.8 PG (26-34); Mean Corpuscular Volume 86.5 fL (80-100); Monocytes Absolute Auto 600 /uL (0-900); Monocytes Percent Auto 7.1 % (3-14); Neutrophils Absolute Auto 4900 /uL (1500-7000); Neutrophils Percent Auto 58.4 % (50-75); Platelet Count 452 X10^3/uL (150-400); Red Blood Cell Count 3.77 X10^6/uL (4.0-5.2); Red Cell Distribution Width 15.1 % (11.6-14.8); White Blood Cell Count 8.3 X10^3/uL (4.5-11.0)
[2024-04-10 20:22] LABS: Alanine Aminotransferase 22 IU/L (<35); Albumin 4.1 g/dL (3.5-5.0); Albumin Globulin Ratio 1.2 (1.0-2.8); Alkaline Phosphatase 75 U/L (38-126); Aspartate Aminotransferase 33 IU/L (14-36); BUN Creatinine Ratio 11.1 (6-22); Bilirubin Total 0.3 mg/dL (0.2-1.3); Blood Urea Nitrogen 11 mg/dL (7-17); Calcium 9.1 mg/dL (8.4-10.2); Carbon Dioxide 29 mmol/L (22-32); Chloride 102 mmol/L (98-107); Cholesterol 164 mg/dL (140-199); Estimated Glomerular Filt Rate > 60 mL/min (>60); Globulin 3.4 g/dL (1.7-4.1); Glucose 83 mg/dL (70-100); HDL Cholesterol 55 mg/dL (40-60); HEMOLYSIS < 15 (0-50); LDL Cholesterol Calculated 91 mg/dL (<100); Potassium 4.5 mmol/L (3.4-5.1); Sodium 139 mmol/L (137-145); Total Protein 7.5 g/dL (6.3-8.2); Triglycerides 89 mg/dL (35-150)
[2024-04-10 20:43] LABS: Ferritin 12 ng/mL (11-264)
[2024-04-10 20:51] LABS: Creatinine Urine Random 16.16 mg/dL
[2024-04-10 20:53] LABS: Microalbumin Urine Random < 0.6 mg/dL (0-1.6)
[2024-04-11 09:28] LABS: Apolipoprotein B 82 mg/dL (<90)
[2024-04-11 19:13] LABS: Free T4, Direct Thyroxine 0.76 ng/dL (0.78-2.19)
== END ==
PROVIDERS: Family Provider Family Medicine; PCP Family Medicine; Referring Provider Family Medicine; Visit Provider Family Medicine
DX: Z12.11 Encounter for screening for malignant neoplasm of colon (principal); E78.5 Hyperlipidemia, unspecified; F90.9 Attention-deficit hyperactivity disorder, unspecified type; F41.9 Anxiety disorder, unspecified; I73.00 Raynaud's syndrome without gangrene; G89.4 Chronic pain syndrome; R73.9 Hyperglycemia, unspecified
CPT/HCPCS: 36415; 80053; 80061; 82043; 82172; 82274; 82570; 82728; 84439; 84443; 85025

== ENCOUNTER → 2024-04-17 11:01 | Outpatient (CLI) | payer MEDICARE, SELFPAY | LOC: WC 11:02 | PROVIDERS: Family Provider Family Medicine; PCP Family Medicine; Referring Provider Family Medicine; Visit Provider Surgery | DX: Z09 Encounter for follow-up examination after completed treatment for conditions other than malignant neoplasm (principal); Z87.2 Personal history of diseases of the skin and subcutaneous tissue; L98.491 Non-pressure chronic ulcer of skin of other sites limited to breakdown of skin; L95.9 Vasculitis limited to the skin, unspecified; M34.1 CR(E)ST syndrome | CPT/HCPCS: 99212; 99213 ==

== ENCOUNTER → 2024-12-30 11:19 | Outpatient (CLI) | payer MEDICARE, SELFPAY ==
[2024-12-30 12:15] LABS: Add Manual Diff / Slide Review NO; Basophils Absolute Auto 100 /uL (0-100); Basophils Percent Auto 0.9 % (0-2); Eosinophils Absolute Auto 200 /uL (0-450); Eosinophils Percent Auto 2.6 % (2-4); Hematocrit 31.4 % (36-46); Hemoglobin 10.1 g/dL (12.0-16.0); Lymphocytes Absolute Auto 1900 /uL (1100-4500); Lymphocytes Percent Auto 22.2 % (25-40); Mean Corpuscular HGB Conc 32.2 % (30-36); Mean Corpuscular Volume 83.9 fL (80-100); Monocytes Absolute Auto 600 /uL (0-900); Monocytes Percent Auto 6.8 % (3-14); Neutrophils Absolute Auto 5700 /uL (1500-7000); Neutrophils Percent Auto 67.5 % (50-75); Platelet Count 528 X10^3/uL (150-400); Red Blood Cell Count 3.75 X10^6/uL (4.0-5.2); Red Cell Distribution Width 15.9 % (11.6-14.8); White Blood Cell Count 8.5 X10^3/uL (4.5-11.0)
[2024-12-30 12:41] LABS: HEMOLYSIS < 15 (0-50); Iron 26 ug/dL (37-170)
[2024-12-30 12:53] LABS: Percent Iron Saturation 9 % (15-50); Total Iron Binding Capacity 278 ug/dL (265-497); Transferrin 250 mg/dL (206-381)
[2024-12-30 13:13] LABS: TSH w/ Reflex to FT4 0.03 uIU/mL (0.47-4.68)
[2024-12-30 17:07] LABS: Free T4, Direct Thyroxine 0.87 ng/dL (0.78-2.19)
== END ==
LOC: LAB 11:20
PROVIDERS: Family Provider Family Medicine; PCP Family Medicine; Referring Provider Family Medicine; Visit Provider Family Medicine
DX: E78.5 Hyperlipidemia, unspecified (principal); R73.9 Hyperglycemia, unspecified; I73.00 Raynaud's syndrome without gangrene; G89.4 Chronic pain syndrome
CPT/HCPCS: 36415; 83540; 83550; 84439; 84443; 85025

== ENCOUNTER → 2025-01-21 13:46 | Outpatient (CLI) | payer MEDICARE, SELFPAY | LOC: WC 13:47 | PROVIDERS: Family Provider Family Medicine; PCP Family Medicine; Referring Provider Family Medicine; Visit Provider Surgery | DX: L95.8 Other vasculitis limited to the skin (principal); L98.492 Non-pressure chronic ulcer of skin of other sites with fat layer exposed; M34.1 CR(E)ST syndrome | CPT/HCPCS: 11042; 87070; 87075; 87077; 87147; 87186; 87205; 99213 ==

== ENCOUNTER → 2025-01-28 13:46 | Outpatient (CLI) | payer MEDICARE, SELFPAY ==
--- NOTE | 2025-01-28 13:49 | DI.RAD.S_ITS ---
PROCEDURE: XR FINGER RT MIN 2V INDICATIONS: ulcer on right fourth finger TECHNIQUE: AP hand, 3 views of the 4th finger(s) acquired. COMPARISON: None. FINDINGS: Bones: Flexion deformities of all fingers limits evaluation. Partial amputations of all digits are noted at the various levels of the middle and distal phalanges. No fractures or dislocations. No suspicious bony lesions. Soft tissues: No suspicious soft tissue calcifications. IMPRESSION: Significantly limited exam secondary to inability to extend the digits. Partial amputations are noted without gross evidence of acute osseous abnormality. Dictated by: David King M.D. on 01/29/2025 at 3:21 Approved by: David King M.D. on 01/29/2025 at 3:23
== END ==
PROVIDERS: Family Provider Family Medicine; PCP Family Medicine; Referring Provider Surgery; Visit Provider Surgery
DX: L08.9 Local infection of the skin and subcutaneous tissue, unspecified (principal)
CPT/HCPCS: 73140

== ENCOUNTER → 2025-01-28 15:40 | Outpatient (CLI) | payer MEDICARE, MEDICAID, SELFPAY | PROVIDERS: Family Provider Family Medicine; PCP Family Medicine; Referring Provider Family Medicine; Visit Provider Surgery | DX: M34.1 CR(E)ST syndrome (principal); L98.492 Non-pressure chronic ulcer of skin of other sites with fat layer exposed; L95.8 Other vasculitis limited to the skin; I73.00 Raynaud's syndrome without gangrene; L94.0 Localized scleroderma [morphea] | CPT/HCPCS: 11042 ==

== ENCOUNTER → 2025-02-04 13:22 | Outpatient (CLI) | payer MEDICARE, MEDICAID, SELFPAY | PROVIDERS: Family Provider Family Medicine; PCP Family Medicine; Referring Provider Family Medicine; Visit Provider Surgery | DX: L98.492 Non-pressure chronic ulcer of skin of other sites with fat layer exposed (principal); I73.9 Peripheral vascular disease, unspecified; M34.9 Systemic sclerosis, unspecified; I73.00 Raynaud's syndrome without gangrene; D64.9 Anemia, unspecified | CPT/HCPCS: 11042 ==

== ENCOUNTER → 2025-02-18 13:29 | Outpatient (CLI) | payer MEDICARE, MEDICAID, SELFPAY ==
--- NOTE | 2025-02-18 | OV.WND_ITS ---
PROGRESS NOTE DETAILS PATIENT NAME: FÁTIMA BAKER PATIENT NUMBER: [id number] CLINICIAN: GEORGE HUNTER PATIENT DATE OF : 1970 PHYSICIAN / PIPEFITTER: ANNIE LYLE PATIENT SUBJECTIVE CHIEF COMPLAINT THIS INFORMATION WAS OBTAINED FROM THE PATIENT. I THINK IT'S HEALED ALLERGIES PREDNISONE (SEVERITY: SEVERE, REACTION: SUICIDAL THOUGHTS.), PENICILLIN (REACTION: STOMACH CRAMPING), CIPROFLOXACIN (SEVERITY: SEVERE, REACTION: MOOD CHANGES/SUICIDAL THOUGHT) HPI THIS INFORMATION WAS OBTAINED FROM THE PATIENT. THE FOLLOWING HPI ELEMENTS WERE DOCUMENTED FOR THE PATIENT'S WOUND: LOCATION: R 4TH FINGER DURATION: 01/07/25 CONTEXT: SCLERODERMA THE PATIENT IS A 54-YEAR-OLD FEMALE WITH SCLERODERMA AND RAYNAUD'S WHO RETURNS TODAY FOR FOLLOW UP OF AN ULCER ON THE RIGHT 4TH FINGER. THE PATIENT IS RECEIVING DRESSING CHANGES WITH IODOSORB AND HAS COMPLETED A COURSE OF DOXYCYCLINE. THE PATIENT REPORTS THAT THE PAIN HAS RESOLVED AND SHE HAS NOT NOTED ANY FURTHER DRAINAGE. SHE DENIES HAVING ANY REDNESS OR SWELLING NOR HAS SHE HAD ANY FEVER OR CHILLS. SHE STILL HAS DECREASED APPETITE AND IS OCCASIONALLY TAKING PROTEIN SUPPLEMENTS. HER WEIGHT HAS BEEN STABLE. THE PATIENT DENIES HAVING ANY OTHER RECENT CHANGES IN HER OVERALL HEALTH. SHE WAS LAST SEEN AT THE WOUND CENTER MARCH 2024 AT WHICH TIME ULCERS ON HER LEFT THUMB WERE HEALED. PREVIOUS DIGITAL ULCERS HAVE BEEN COMPLICATED BY OSTEOMYELITIS. PATIENT HAS PREVIOUSLY UNDERGONE SURGICAL AND AUTO AMPUTATION OF SOME OF HER FINGERS. PATIENT REMAINS ON CALCIUM CHANNEL JOSSELINE AND SILDENAFIL. THE PATIENT IS RECEIVING IRON INFUSIONS FOR TREATMENT OF ANEMIA. ON EXAM TODAY THE ULCER APPEARS TO BE HEALED BUT THERE IS SOME DRIED DRAINAGE. LABS 01/29/25: X-RAY RIGHT HAND: SIGNIFICANTLY LIMITED EXAM SECONDARY TO INABILITY TO EXTEND THE DIGITS. PARTIAL AMPUTATIONS ARE NOTED WITHOUT GROSS EVIDENCE OF ACUTE OSSEOUS ABNORMALITY. 01/21/25: CULTURES GREW STAPHYLOCOCCUS AUREUS 12/30/24: WBC 8.5, HEMOGLOBIN 10.1, HCT 31.4, PLT 528 FAMILY HISTORY THIS INFORMATION WAS OBTAINED FROM THE PATIENT. DIABETES- FATHER, PATERNAL GRANDPARENTS HEART DISEASE- MATERNAL GRANDPARENTS LUNG DISEASE- FATHER MENTAL ILLNESS- PATERNAL GRANDPARENTS FÁTIMA BAKER [id number] 1970 OTHER- MOTHER STROKE- MATERNAL GRANDPARENTS SOCIAL HISTORY THIS INFORMATION WAS OBTAINED FROM THE CHART, PATIENT. FORMER SMOKER: 2012 CAFFEINE USE: 12 OZ A DAY CHILDREN: 2 LIVES IN: PRIVATE HOME MENTAL HEALTH CONCERNS: DEPRESSION, ANXIETY OCCUPATION: DISABLED MEDICAL HISTORY THIS INFORMATION WAS OBTAINED FROM THE CHART, PATIENT. PATIENT HAS A MEDICAL HISTORY OF: RAYNAUD'S DISEASE SCLERODERMA DEPRESSION ANXIETY ADHD OSTEOMYELITIS CHRONIC OBSTRUCTIVE PULMONARY DISEASE (COPD) ANEMIA SURGICAL HISTORY THIS INFORMATION WAS OBTAINED FROM THE PATIENT. PATIENT HAS A SURGICAL HISTORY OF: PARTIAL DIGIT AMPUTATIONS ON BOTH HANDS- ELBOW SURGERY- DELIVERY- TOOTH EXTRACTION- REVIEW OF SYSTEMS (ROS) THIS INFORMATION WAS OBTAINED FROM THE PATIENT. COMPLAINTS AND SYMPTOMS PATIENT COM PLAINS OF: INTEGUMENTARY (HAIR/SKIN/NAILS): OPEN SORE MUSCULOSKELETAL: DEFORMITIES, JOINT SWELLING PSYCHIATRIC: DEPRESSION PATIENT DENIES COM PLAINTS OR SY M PTOM S RELATED TO: GENERAL NOTES: I HAVE REVIEWED AND CONCUR WITH THE REVIEW OF SYSTEMS AND PAST FAMILY SOCIAL HISTORY DOCUMENTS COMPLETED BY THE CLINICIAN, I HAVE REVIEWED AND CONCUR WITH THE WOUND ASSESSMENT DOCUMENT COMPLETED BY THE CLINICIAN CARDIOVASCULAR (CENTRAL): CHEST PAIN, DYSPNEA ON EXERTION CONSTITUTIONAL SYMPTOMS (GENERAL HEALTH): CHILLS, FEVER, LOSS OF APPETITE EAR/NOSE/MOUTH/THROAT: HEARING LOSS / AID FÁTIMA BAKER [id number] 1970 GASTROINTESTINAL (GI): DIFFICULTY SWALLOWING, NAUSEA / VOMITING, STOMACH/ABDOMINAL PAIN HEMATOLOGIC/LYMPHATIC: BLEEDING / CLOTTING DISORDERS NEUROLOGICAL: LOSS OF PROTECTIVE SENSATION PRIOR WOUND HISTORY: BLEEDING, DRAINAGE, ERYTHEMA, PAIN PSYCHIATRIC: MEMORY LOSS RESPIRATORY: SHORTNESS OF BREATH OBJECTIVE VITALS HEIGHT/LENGTH: 65 IN (165.1 CM), WEIGHT: 101.9 LBS (46.32 KGS), BMI: 17, TEMPERATURE: 100 ?F (37.78 ?C), PULSE: 93 BPM, RESPIRATORY RATE: 16 BREATHS/MIN, BLOOD PRESSURE: 111/76 MMHG, PULSE OXIMETRY: 97 %. PHYSICAL EXAM CONSTITUTIONAL: VITAL SIGNS REVIEWED AND NOTED. WELL DEVELOPED, WELL NOURISHED, AND IN NO ACUTE DISTRESS. ALERT AND ORIENTED X3. RESPIRATORY: EVEN RESPIRATIONS WITHOUT USE OF ACCESSORY MUSCLES. NO INTERCOASTAL RETRACTIONS NOTED. EVEN AND NON LABORED RESPIRATION. INTEGUMENTARY (HAIR, SKIN): NO ERYTHEMA, PREVIOUS AMPUTATIONS, FINGER CONTRACTURES. NO SWELLING OR TENDERNESS. SEE WOUND ASSESSMENT. SKIN WARM AND DRY. NO RASHES. NEUROLOGICAL: SENSATION: SYMMETRIC FUNCTION BY INFORMAL OBSERVATION. PSYCHIATRIC: ORIENTATION TO TIME, PLACE AND PERSON: NORMAL AFFECT WITH NORMAL THOUGHT PATTERN. WOUND ASSESSMENT(S) WOUND #22 RIGHT FINGER - FOURTH IS A CHRONIC FULL THICKNESS VASCULITIC ULCER ACQUIRED ON 01/07/2025 AND HAS RECEIVED AN OUTCOME OF HEALED - NO NEW WOUND(S). INITIAL WOUND ENCOUNTER MEASUREMENTS ARE 0CM LENGTH X 0CM WIDTH WITH NO MEASURABLE DEPTH, WITH AN AREA OF 0 SQ CM.INITIAL WOUND ENCOUNTER PREVIOUS MEASUREMENTS FROM 02/04/2025 ARE 0.2CM LENGTH X 0.2CM WIDTH X 0.1CM DEPTH, WITH AN AREA OF 0.04 SQ CM AND A VOLUME OF 0.004 CUBIC CM. NO TUNNELING HAS BEEN NOTED. NO SINUS TRACT HAS BEEN NOTED. NO UNDERMINING HAS BEEN NOTED. THE PATIENT REPORTS A WOUND PAIN OF LEVEL 0/10. THE WOUND MARGIN IS EPITHELIAL RESURFACING WOUND BED HAS NO, GRANULATION, NO SLOUGH, NO ESCHAR, YES EPITHELIALIZATION. THE PERIWOUND SKIN TEXTURE IS NORMAL. THE PERIWOUND SKIN MOISTURE IS NORMAL. THE PERIWOUND SKIN COLOR IS NORMAL. THE TEMPERATURE OF THE PERIWOUND SKIN IS WNL. LOCAL PULSE IS PALPABLE. ASSESSMENT ACTIVE PROBLEMS ICD-10 (ENCOUNTER DIAGNOSIS) M34.1 - CR(E)ST SYNDROME (ENCOUNTER DIAGNOSIS) L98.492 - NON-PRESSURE CHRONIC ULCER OF SKIN OF OTHER SITES WITH FAT LAYER EXPOSED GENERAL NOTES ULCER DORSUM RIGHT 4TH FINGER, HEALED FÁTIMA BAKER [id number] 1970 THE FOLLOWING FACTORS HAVE BEEN IDENTIFIED THAT MAY AFFECT WOUND HEALING: DEVITALIZED TISSUE BIOFILM CONNECTIVE TISSUE DISORDER ARTERIAL INSUFFICIENCY INFECTION GOAL: REMOVED DEVITALIZED TISSUE REMOVE AND PREVENT BIOFILM TREAT INFECTION WOUND CLOSURE PREVENT RECURRENCE PLAN: USE IODOSORB NEEDED, FOLLOW UP AT WOUND CENTER NEEDED. PLAN ADDITIONAL ORDERS: DRESSING ORDERS OTHER ORDER: - MAY COVER TO PROTECT FOR ONE WEEK FOLLOW-UP APPOINTMENTS DISCHARGE FROM OUTPATIENT SERVICES. - WOUND HEALED, CALL WITH CONCERNS SCRIBING ATTESTATION I ATTEST, THE NURSE, THAT I SCRIBED THESE ORDERS FOR THE WOUND CARE PROVIDER. PROVIDER REVIEW AND ATTESTATION: REVIEWED AND EVALUATED LABS. REVIEWED HOSPITAL RECORDS. DISCUSSED THE PLAN OF CARE @ BEDSIDE WITH - THE PATIENT I AGREE AND ATTEST TO THE ABOVE INFORMATION PROVIDED FROM OTHER LICENSED PROFESSIONALS. PLAN OF CARE: 01. ENSURE/ESTABLISH OPTIMAL BLOOD FLOW : - REVIEWED, NOT APPLICABLE 02. ASSESS FOR/TREAT INFECTION : - EVALUATE FOR SIGNS AND SYMPTOMS OF INFECTION AND DOCUMENT FINDINGS. STATUS: COMPLETED DATE: 02/18/2025 - OBTAIN CULTURE AND SENSITIVITY (CANDS) OR TISSUE CULTURE WHEN INFECTION IS SUSPECTED. (NOTE:) CONSIDER REPEATING WHEN WOUND HEALING <40% AFTER 30 DAYS OF WOUND CARE. STATUS: COMPLETED DATE: 01/21/2025 03. DEBRIDE WEEKLY OR MORE OFTEN PRN : - EVALUATE PATIENT IN CENTER WEEKLY TO ASSESS WOUND BED AND MARGINS FOR NEED FOR DEBRIDEMENT. STATUS: COMPLETED DATE: 02/18/2025 04. OPTIMIZE GLUCOSE CONTROL AND NUTRITION : - COMPLETE A NUTRITION RISK ASSESSMENT. STATUS: COMPLETED DATE: 01/21/2025 05. OFFLOADING PLAN : - REVIEWED, NOT APPLICABLE 06. OPTIMIZE HOST FACTORS: - ASSESS LIFESTYLE FACTORS SUCH SMOKING, ALCOHOL/DRUG ABUSE, EATING HABITS/MALNUTRITION AND ACTIVITY LEVEL. STATUS: COMPLETED DATE: 02/18/2025 07. DRESSING SELECTION : FÁTIMA BAKER [id number] 1970 - CHOOSE TOPICAL TREATMENTS AND/OR DRESSING BASED ON WOUND TYPE AND APPEARANCE, PERIWOUND SKIN CONDITION, WOUND SIZE AND DEPTH, ANATOMIC LOCATION, VOLUME OF EXUDATE, EDEMA IN THE LOWER EXTREMITIES, AND RISK OR PRESENCE OF INFECTION. STATUS: COMPLETED DATE: 02/18/2025 08. ADVANCED MODALITIES : - SET TREATMENT GOALS ACCORDING TO PATIENT AND/OR CAREGIVER?S ABILITY/ COMPLIANCE. STATUS: COMPLETED DATE: 02/18/2025 09. FALL PREVENTION : - REVIEWED, NOT APPLICABLE 10. PAIN MANAGEMENT : - COMPLETE PAIN ASSESSMENT STATUS: COMPLETED DATE: 01/21/2025 11. MEASURABLE GOALS FOR WOUND HEALING AND/OR HYPERBARIC OXYGEN THERAPY : - IMPLEMENT PROTOCOLS TO PROMOTE HEALING AND IMPEDE FURTHER INJURY STATUS: COMPLETED DATE: 02/18/2025 12. DURATION/FREQUENCY OF WOUND CARE VISITS : - 1X WEEKLY FOR 30 DAYS STATUS: COMPLETED DATE: 02/18/2025 ELECTRONIC SIGNATURE(S) SIGNED BY: DATE: ANNIE LYLE MD 02/18/2025 15:51:00 (PT) ENTERED BY: ANNIE LYLE MD ON 02/18/2025 13:36:51 (PT) FÁTIMA BAKER [id number] 1970
== END ==
PROVIDERS: Family Provider Family Medicine; PCP Family Medicine; Referring Provider Family Medicine; Visit Provider Surgery
DX: M34.1 CR(E)ST syndrome (principal)
CPT/HCPCS: 99212; 99213

== ENCOUNTER → 2025-03-23 16:27 | Outpatient (CLI) | payer MEDICARE, MEDICAID, SELFPAY ==
[2025-03-23 17:29] LABS: Add Manual Diff / Slide Review NO; Basophils Absolute Auto 100 /uL (0-100); Basophils Percent Auto 1.3 % (0-2); Eosinophils Absolute Auto 300 /uL (0-450); Hematocrit 36.7 % (36-46); Hemoglobin 11.7 g/dL (12.0-16.0); Lymphocytes Absolute Auto 2100 /uL (1100-4500); Lymphocytes Percent Auto 30.9 % (25-40); Mean Corpuscular HGB Conc 31.9 % (30-36); Mean Corpuscular Hemoglobin 27.9 PG (26-34); Mean Corpuscular Volume 87.7 fL (80-100); Monocytes Absolute Auto 600 /uL (0-900); Monocytes Percent Auto 8.5 % (3-14); Neutrophils Absolute Auto 3800 /uL (1500-7000); Neutrophils Percent Auto 55.3 % (50-75); Platelet Count 438 X10^3/uL (150-400); Red Blood Cell Count 4.18 X10^6/uL (4.0-5.2); Red Cell Distribution Width 19.5 % (11.6-14.8); White Blood Cell Count 6.8 X10^3/uL (4.5-11.0)
[2025-03-23 17:41] LABS: HEMOLYSIS < 15 (0-50); Iron 61 ug/dL (37-170)
[2025-03-23 17:44] LABS: Alanine Aminotransferase 38 IU/L (<35); Albumin 4.2 g/dL (3.5-5.0); Albumin Globulin Ratio 1.1 (1.0-2.8); Alkaline Phosphatase 74 U/L (38-126); Aspartate Aminotransferase 41 IU/L (14-36); BUN Creatinine Ratio 18.1 (6-22); Bilirubin Total 0.3 mg/dL (0.2-1.3); Blood Urea Nitrogen 19 mg/dL (7-17); Calcium 9.3 mg/dL (8.4-10.2); Carbon Dioxide 30 mmol/L (22-32); Chloride 99 mmol/L (98-107); Cholesterol 205 mg/dL (140-199); Estimated Glomerular Filt Rate > 60 mL/min (>60); Globulin 3.9 g/dL (1.7-4.1); Glucose 72 mg/dL (70-99); HDL Cholesterol 50 mg/dL (40-60); HEMOLYSIS < 15 (0-50); LDL Cholesterol Calculated 130 mg/dL (<100); Potassium 4.6 mmol/L (3.4-5.1); Sodium 139 mmol/L (137-145); Total Protein 8.1 g/dL (6.3-8.2); Triglycerides 123 mg/dL (35-150)
[2025-03-23 17:54] LABS: Percent Iron Saturation 27 % (15-50); Total Iron Binding Capacity 225 ug/dL (265-497); Transferrin 178 mg/dL (206-381)
[2025-03-23 18:13] LABS: TSH w/ Reflex to FT4 0.04 uIU/mL (0.47-4.68)
[2025-03-23 18:18] LABS: Ferritin 154 ng/mL (11-264)
[2025-03-23 18:42] LABS: Free T4, Direct Thyroxine 0.75 ng/dL (0.78-2.19)
[2025-03-25 14:12] LABS: Fecal Immunochemical Test Negative (Negative)
== END ==
PROVIDERS: Family Provider Family Medicine; PCP Family Medicine; Referring Provider Family Medicine; Visit Provider Family Medicine
DX: E78.5 Hyperlipidemia, unspecified (principal); D50.9 Iron deficiency anemia, unspecified; Z00.00 Encounter for general adult medical examination without abnormal findings; M34.9 Systemic sclerosis, unspecified; F90.9 Attention-deficit hyperactivity disorder, unspecified type; F41.9 Anxiety disorder, unspecified; R73.9 Hyperglycemia, unspecified; F33.1 Major depressive disorder, recurrent, moderate; I73.00 Raynaud's syndrome without gangrene
CPT/HCPCS: 36415; 80053; 80061; 82274; 82728; 83540; 83550; 84439; 84443; 85025

== ENCOUNTER → 2025-05-12 08:39 | Outpatient (CLI) | payer MEDICARE, MEDICAID, SELFPAY ==
--- NOTE | 2025-05-12 08:40 | DI.NM.S_ITS ---
PROCEDURE: NM UPTAKE AND SCAN RADIOPHARMACEUTICAL: 401 ???Ci I-123 sodium iodide by mouth. INDICATIONS: subclinical hyperthyroidism TECHNIQUE: I-123 sodium iodide was administered orally. Anterior neck images were obtained, and iodine uptake by the thyroid gland calculated using gasser machine operator's software. COMPARISON: None. FINDINGS: Morphology: The thyroid gland has normal morphology and uniform activity. No 'cold' or 'hot' thyroid nodules are identified. Uptake: 6 hour thyroid uptake is 9.4%; normal ranges are from 6-18%. 24 hour thyroid uptake is 23.7%; normal ranges are from 10-30%. IMPRESSION: Normal thyroid uptake percentages. No hot or cold nodules are identified. Dictated by: Clint Muir M.D. on 05/14/2025 at 8:28 Approved by: Clint Muir M.D. on 05/14/2025 at 8:32
== END ==
LOC: NUCM 08:40
PROVIDERS: Family Provider Family Medicine; PCP Family Medicine; Referring Provider Family Medicine; Visit Provider Family Medicine
DX: E05.90 Thyrotoxicosis, unspecified without thyrotoxic crisis or storm (principal)
CPT/HCPCS: 78014; A9516

== ENCOUNTER → 2025-05-13 08:59 | Outpatient (CLI) | payer MEDICARE, MEDICAID, SELFPAY ==
--- NOTE | 2025-05-13 09:01 | DI.ECHO.S_ITS ---
[facility] : : [id number] : : [place] : : [id number] : : Phone: [phone] Echocardiogram Report + + :Name: FÁTIMA BAKER Study Date: 05/13/2025 Height: 65 in : :[facility] ReadingLocation: Weight: 103 lb : : Gender: Female BSA: 1.5 m2 : :: 1970 Age: 54 yrs BP: 106/67 mmHg: :Reason For Study: SYSTEMIC SCLEROSIS : :Ordering Physician: HAYDER PEREA Performed By: Dick Tobar : :Referring: Provider Jose Lopez : + + Interpretation Summary 1. Left ventricular contractility is normal. Estimated ejection fraction is greater than 60% with no segmental wall motion abnormalities. No LVH. Normal diastolic function. 2. The right ventricular contractility is normal. 3. Moderate left atrial enlargement. All the cardiac chambers are of normal size. 4. Mild mitral regurgitation. 5. No obvious intracardiac shunts. 6. No obvious intracardiac masses nor thrombi. 7. No hemodynamically significant pericardial effusion. 8. Low right-sided filling pressures. Conclusion: Normal biventricular function with mild mitral regurgitation. When compared with previous echocardiogram, there is now mitral regurgitation. Procedure: A two-dimensional transthoracic echocardiogram with color flow and Doppler was performed. The study quality was technically good. Comparison is made with the echocardiogram of 11/01/2022. The patient was in normal sinus rhythm during the exam. Left Ventricle: The left ventricle is normal in size. There is normal left ventricular wall thickness. There is no ventricular septal defect visualized. The ejection fraction is estimated to be 55-60%. There are no focal wall motion abnormalities. Diastolic parameters suggest probable normal left ventricular diastolic function and normal filling pressures. Right Ventricle: The right ventricle is normal in size and function. Atria: The left atrium is moderately dilated. Right atrial size is normal. There is no Doppler evidence for an interatrial shunt. Mitral Valve: The mitral valve leaflets appear normal. There is no evidence of stenosis, fluttering, or prolapse. There is mild mitral regurgitation. Aortic Valve: The aortic valve is trileaflet. The aortic valve is slightly calcified. No aortic regurgitation is present. Tricuspid Valve: The tricuspid valve leaflets are thin and pliable. There is trace tricuspid regurgitation. The right ventricular systolic pressure is estimated to be at least 29 mmHg based on an estimated right atrial pressure of 3 mm Hg. Pulmonic Valve: The pulmonic valve leaflets are thin and pliable; valve motion is normal. There is no pulmonic valvular regurgitation. Great Vessels: The aortic root is normal size. The ascending aorta could not be visualized. The pulmonary artery is normal size. The IVC is of normal diameter and collapses greater than 50% with a sniff. This suggests a low right atrial pressure of 3 mm Hg. Pericardium/ Pleura There is no pericardial effusion. There is no pleural effusion. MMode/2D Measurements & Calculations LVIDd: 5.0 cm LVOT diam: 1.9 cm LVIDs: 3.3 cm Ao root diam: 3.0 cm FS: 33.3 % EPSS: 0.50 cm IVSd: 0.84 cm LVPWd: 0.71 cm LV ramos. diameter/BSA (cm/m^2): 3.3 LV sys. diameter/BSA (cm/m^2): 2.2 LA A2 area: 19.2 cm2 RA long axis: 4.4 cm LA A4 area: 19.3 cm2 RA area: 13.6 cm2 LA length (vol): 4.9 cm RA vol: 35.7 ml LA vol: 64.4 ml RA : 23.9 ml/m2 LA vol index: 43.2 ml/m2 IVC diam: 1.7 cm RVD1 (basal): 2.9 cm RVD2 (mid): 2.5 cm TAPSE: 3.0 cm Doppler Measurements & Calculations Ao V2 max: 189.0 cm/sec LVOT Max Peter: 116.6 cm/sec Ao V2 mean: 123.8 cm/sec LV V1 max P.4 mmHg Ao max P.3 mmHg LV V1 VTI: 25.0 cm Ao mean P.0 mmHg JENNIFER(I,D): 1.8 cm2 Ao V2 VTI: 40.1 cm JENNIFER(V,D): 1.8 cm2 sev ratio: 0.62 JENNIFER indexed to BSA (cm^2/m^2): 1.2 MV E max peter: 94.2 cm/sec TR max peter: 256.7 cm/sec MV A max peter: 85.2 cm/sec TR max P.4 mmHg MV E/A: 1.1 PA V2 max: 99.2 cm/sec Med Peak E' Peter: 7.9 cm/sec PA V2 mean: 71.9 cm/sec E/E' med: 11.9 PA mean P.3 mmHg Lat Peak E' Peter: 10.2 cm/sec PA pr(Accel): 49.9 mmHg E/E' lat: 9.2 E/e' average: 10.5 MV dec time: 0.19 sec SV(OT): 72.0 ml Reading Physician:JEANIE
== END ==
PROVIDERS: Family Provider Family Medicine; PCP Family Medicine; Referring Provider Internal Medicine Rheumatology; Visit Provider Internal Medicine Rheumatology
DX: I34.0 Nonrheumatic mitral (valve) insufficiency (principal); M34.9 Systemic sclerosis, unspecified
CPT/HCPCS: 93306

== ENCOUNTER → 2025-05-14 08:46 | Outpatient (CLI) | payer MEDICARE, MEDICAID, SELFPAY | PROVIDERS: Family Provider Family Medicine; PCP Family Medicine; Referring Provider Family Medicine; Visit Provider Surgery | DX: I87.2 Venous insufficiency (chronic) (peripheral) (principal); L98.498 Non-pressure chronic ulcer of skin of other sites with other specified severity; L53.9 Erythematous condition, unspecified; R60.0 Localized edema; M34.1 CR(E)ST syndrome; I73.00 Raynaud's syndrome without gangrene; M34.9 Systemic sclerosis, unspecified; F90.9 Attention-deficit hyperactivity disorder, unspecified type; M86.9 Osteomyelitis, unspecified; F32.A Depression, unspecified; F41.1 Generalized anxiety disorder; Z87.09 Personal history of other diseases of the respiratory system; D64.9 Anemia, unspecified | CPT/HCPCS: 11042; 87070; 87075; 87077; 87147; 87186; 87205; 99213 ==

== ENCOUNTER → 2025-05-14 14:45 | Outpatient (CLI) | payer MEDICARE, MEDICAID, SELFPAY ==
--- NOTE | 2025-05-14 14:48 | DI.RAD.S_ITS ---
PROCEDURE: XR HAND RT MIN 3V INDICATIONS: ulcer with tendon exposed on right 5th MCP joint TECHNIQUE: Four views of the hand(s) acquired. COMPARISON: [facility], CR, XR HAND LT MIN 3V, 03/25/2024, 10:00. FINDINGS: Bones: Contractures of all digits. Distal amputations at the 1st through 3rd digits. No visible erosive changes or osseous lucency in the region of the 5th MCP joint. Soft tissues: No suspicious soft tissue calcifications. No radiodense foreign bodies or soft tissue gas. IMPRESSION: No radiographic evidence of osteomyelitis, however radiographs are insensitive in the early phase, and if there is further concern for osteomyelitis, MR imaging is recommended. Dictated by: Samantha Borden M.D. on 05/15/2025 at 13:59 Approved by: Samantha Borden M.D. on 05/15/2025 at 14:01
== END ==
PROVIDERS: Family Provider Family Medicine; PCP Family Medicine; Referring Provider Surgery; Visit Provider Surgery
DX: S61.401A Unspecified open wound of right hand, initial encounter (principal); M24.541 Contracture, right hand
CPT/HCPCS: 73130; 87070; 87075; 87205

== ENCOUNTER → 2025-05-20 15:50 | Outpatient (CLI) | payer MEDICARE, MEDICAID, SELFPAY | LOC: WC 15:51 | PROVIDERS: Family Provider Family Medicine; PCP Family Medicine; Referring Provider Family Medicine; Visit Provider Surgery | DX: I87.2 Venous insufficiency (chronic) (peripheral) (principal); L98.498 Non-pressure chronic ulcer of skin of other sites with other specified severity; M34.1 CR(E)ST syndrome; L53.9 Erythematous condition, unspecified | CPT/HCPCS: 11042; 99213 ==

== ENCOUNTER → 2025-05-27 16:25 | Outpatient (CLI) | payer MEDICARE, MEDICAID, SELFPAY | LOC: WC 16:26 | PROVIDERS: Family Provider Family Medicine; PCP Family Medicine; Referring Provider Family Medicine; Visit Provider Surgery | DX: L95.8 Other vasculitis limited to the skin (principal); L98.498 Non-pressure chronic ulcer of skin of other sites with other specified severity; L08.9 Local infection of the skin and subcutaneous tissue, unspecified; L53.9 Erythematous condition, unspecified; R60.0 Localized edema; I73.9 Peripheral vascular disease, unspecified | CPT/HCPCS: 11042 ==

== ENCOUNTER → 2025-06-02 15:55 | Outpatient (CLI) | payer MEDICARE, MEDICAID, SELFPAY | PROVIDERS: Family Provider Family Medicine; PCP Family Medicine; Referring Provider Family Medicine; Visit Provider Surgery | DX: L95.8 Other vasculitis limited to the skin (principal); L98.498 Non-pressure chronic ulcer of skin of other sites with other specified severity; L08.9 Local infection of the skin and subcutaneous tissue, unspecified; M34.1 CR(E)ST syndrome; L94.0 Localized scleroderma [morphea]; I73.00 Raynaud's syndrome without gangrene | CPT/HCPCS: 11042; 17250 ==

== ENCOUNTER → 2025-06-10 09:40 | Outpatient (CLI) | payer MEDICARE, MEDICAID, SELFPAY | LOC: WC 09:41 | PROVIDERS: Family Provider Family Medicine; PCP Family Medicine; Referring Provider Family Medicine; Visit Provider Nurse Practitioner Family | DX: L95.8 Other vasculitis limited to the skin (principal); L98.492 Non-pressure chronic ulcer of skin of other sites with fat layer exposed; L08.9 Local infection of the skin and subcutaneous tissue, unspecified; M34.1 CR(E)ST syndrome | CPT/HCPCS: 11042 ==

== ENCOUNTER → 2025-06-24 13:54 | Outpatient (CLI) | payer MEDICARE, MEDICAID, SELFPAY | LOC: WC 13:54 | PROVIDERS: PCP Family Medicine; Referring Provider Family Medicine; Visit Provider Surgery | DX: L98.492 Non-pressure chronic ulcer of skin of other sites with fat layer exposed (principal); L95.8 Other vasculitis limited to the skin; L84 Corns and callosities; L94.0 Localized scleroderma [morphea]; L92.9 Granulomatous disorder of the skin and subcutaneous tissue, unspecified; I73.00 Raynaud's syndrome without gangrene; Z89.029 Acquired absence of unspecified finger(s); D50.9 Iron deficiency anemia, unspecified | CPT/HCPCS: 11042 ==

== ENCOUNTER → 2025-07-22 14:26 | Outpatient (CLI) | payer MEDICARE, MEDICAID, SELFPAY | PROVIDERS: PCP Family Medicine; Referring Provider Family Medicine; Visit Provider Surgery | DX: L95.8 Other vasculitis limited to the skin (principal); L98.492 Non-pressure chronic ulcer of skin of other sites with fat layer exposed; S91.111A Laceration without foreign body of right great toe without damage to nail, initial encounter; M34.1 CR(E)ST syndrome; L08.9 Local infection of the skin and subcutaneous tissue, unspecified; R23.4 Changes in skin texture | CPT/HCPCS: 97597; 99213 ==

== ENCOUNTER → 2025-08-05 10:35 | Outpatient (CLI) | payer MEDICARE, MEDICAID, SELFPAY | LOC: WC 10:45 | PROVIDERS: PCP Family Medicine; Referring Provider Family Medicine; Visit Provider Surgery | DX: L95.8 Other vasculitis limited to the skin (principal); L98.492 Non-pressure chronic ulcer of skin of other sites with fat layer exposed; L08.9 Local infection of the skin and subcutaneous tissue, unspecified | CPT/HCPCS: 11042; 87070; 87075; 87077; 87147; 87186; 87205; 99213 ==

== ENCOUNTER → 2025-08-11 10:31 | Outpatient (CLI) | payer MEDICARE, MEDICAID, SELFPAY | LOC: WC 10:32 | PROVIDERS: PCP Family Medicine; Referring Provider Family Medicine; Visit Provider Surgery | DX: L59.8 Other specified disorders of the skin and subcutaneous tissue related to radiation (principal); L98.492 Non-pressure chronic ulcer of skin of other sites with fat layer exposed; R23.4 Changes in skin texture; M34.1 CR(E)ST syndrome | CPT/HCPCS: 11042 ==

== ENCOUNTER → 2025-08-19 14:26 | Outpatient (CLI) | payer MEDICARE, MEDICAID, SELFPAY | LOC: WC 14:26 | PROVIDERS: PCP Family Medicine; Referring Provider Family Medicine; Visit Provider Surgery | DX: L95.8 Other vasculitis limited to the skin (principal); L98.492 Non-pressure chronic ulcer of skin of other sites with fat layer exposed; R23.4 Changes in skin texture | CPT/HCPCS: 11042 ==

== ENCOUNTER → 2025-08-26 16:28 | Outpatient (CLI) | payer MEDICARE, MEDICAID, SELFPAY | LOC: WC 16:28 | PROVIDERS: PCP Family Medicine; Referring Provider Family Medicine; Visit Provider Surgery | DX: L95.8 Other vasculitis limited to the skin (principal); L98.492 Non-pressure chronic ulcer of skin of other sites with fat layer exposed; M34.1 CR(E)ST syndrome; L08.9 Local infection of the skin and subcutaneous tissue, unspecified | CPT/HCPCS: 11042 ==

== ENCOUNTER → 2025-09-02 16:04 | Outpatient (CLI) | payer MEDICARE, MEDICAID, SELFPAY | LOC: WC 16:05 | PROVIDERS: PCP Family Medicine; Referring Provider Family Medicine; Visit Provider Surgery | DX: L95.8 Other vasculitis limited to the skin (principal); L98.A31 Non-pressure chronic ulcer of right hand; L98.A3 Non-pressure chronic ulcer of hand; Z89.029 Acquired absence of unspecified finger(s); D50.9 Iron deficiency anemia, unspecified; Z87.891 Personal history of nicotine dependence; M34.9 Systemic sclerosis, unspecified; I73.00 Raynaud's syndrome without gangrene | CPT/HCPCS: 97597; 99213 ==

== ENCOUNTER → 2025-09-09 13:21 | Outpatient (CLI) | payer MEDICARE, MEDICAID, SELFPAY | LOC: WC 13:21 | PROVIDERS: PCP Family Medicine; Referring Provider Family Medicine; Visit Provider Surgery | DX: L98.492 Non-pressure chronic ulcer of skin of other sites with fat layer exposed (principal); L95.9 Vasculitis limited to the skin, unspecified; I73.9 Peripheral vascular disease, unspecified; L08.9 Local infection of the skin and subcutaneous tissue, unspecified; M34.1 CR(E)ST syndrome | CPT/HCPCS: 11042; 97597; 99213 ==

== ENCOUNTER → 2025-09-16 11:28 | Outpatient (CLI) | payer MEDICARE, MEDICAID, SELFPAY | LOC: WC 11:28 | PROVIDERS: PCP Family Medicine; Referring Provider Family Medicine; Visit Provider Surgery | DX: L95.8 Other vasculitis limited to the skin (principal); L98.492 Non-pressure chronic ulcer of skin of other sites with fat layer exposed; M34.1 CR(E)ST syndrome; L08.9 Local infection of the skin and subcutaneous tissue, unspecified; L53.8 Other specified erythematous conditions; R23.4 Changes in skin texture | CPT/HCPCS: 11042; 97597 ==

== ENCOUNTER → 2025-09-22 13:11 | Outpatient (CLI) | payer MEDICARE, MEDICAID, SELFPAY ==
--- NOTE | 2025-09-22 13:12 | DI.US.S_ITS ---
PROCEDURE: US ARTERIAL DUPLEX LE BI INDICATIONS: PERIPHERAL ARTERIAL DISEASE TECHNIQUE: Color and pulse Doppler interrogation was performed of both lower extremity arterial systems, with image documentation. COMPARISON: None. FINDINGS: Right lower extremity: Common femoral artery: 145 cm/sec, with triphasic flow. Deep femoral artery: 111 cm/sec, with triphasic flow. Proximal superficial femoral artery: 125 cm/sec, with triphasic flow. Mid superficial femoral artery: 155 cm/sec, with triphasic flow. Distal superficial femoral artery: 110 cm/sec, with triphasic flow. Popliteal artery: 68 cm/sec, with triphasic flow. Posterior tibial artery: 65 cm/sec, with triphasic flow. Anterior tibial artery/dorsalis pedis: 27 cm/sec, with biphasic flow. Wills-scale imaging description: Small amount of plaque in the popliteal artery and posterior tibial Left lower extremity: Common femoral artery: 134 cm/sec, with triphasic flow. Deep femoral artery: 120 cm/sec, with triphasic flow. Proximal superficial femoral artery: 88 cm/sec, with triphasic flow. Mid superficial femoral artery: 137 cm/sec, with triphasic flow. Distal superficial femoral artery: 90 cm/sec, with triphasic flow. Popliteal artery: 63 cm/sec, with triphasic flow. Posterior tibial artery: 85 cm/sec, with triphasic flow. Anterior tibial artery/dorsalis pedis: 42 cm/sec, with triphasic flow. Wills-scale imaging description: No significant plaque seen. There is a Guidry's cyst measuring 3.5 x 2.5 cm as well as probable left ankle joint effusion IMPRESSION: 1. Mild atherosclerotic disease seen in the right popliteal and posterior tibial arteries, without signs of significant focal stenosis bilaterally. 2. Left Guidry's cyst and left ankle joint effusion. Dictated by: Randy Arce M.D. on 09/22/2025 at 21:53 Approved by: Randy Arce M.D. on 09/22/2025 at 21:58
== END ==
LOC: US 13:11
PROVIDERS: PCP Family Medicine; Referring Provider Family Medicine; Visit Provider Podiatrist
DX: I73.9 Peripheral vascular disease, unspecified (principal); M71.22 Synovial cyst of popliteal space [Baker], left knee; M25.472 Effusion, left ankle
CPT/HCPCS: 93925

== ENCOUNTER → 2025-09-23 15:29 | Outpatient (CLI) | payer MEDICARE, MEDICAID, SELFPAY | LOC: WC 15:32 | PROVIDERS: PCP Family Medicine; Referring Provider Family Medicine; Visit Provider Surgery | DX: L95.8 Other vasculitis limited to the skin (principal); L98.A31 Non-pressure chronic ulcer of right hand; L98.A3 Non-pressure chronic ulcer of hand; L85.3 Xerosis cutis; Z89.029 Acquired absence of unspecified finger(s); D50.9 Iron deficiency anemia, unspecified; M34.9 Systemic sclerosis, unspecified; I73.00 Raynaud's syndrome without gangrene; I73.9 Peripheral vascular disease, unspecified | CPT/HCPCS: 11042; 97597 ==

== ENCOUNTER → 2025-09-30 13:01 | Outpatient (CLI) | payer MEDICARE, MEDICAID, SELFPAY | LOC: WC 13:02 | PROVIDERS: PCP Family Medicine; Referring Provider Family Medicine; Visit Provider Surgery | DX: L95.8 Other vasculitis limited to the skin (principal); L98.492 Non-pressure chronic ulcer of skin of other sites with fat layer exposed; M34.1 CR(E)ST syndrome; L08.9 Local infection of the skin and subcutaneous tissue, unspecified; L53.8 Other specified erythematous conditions; R23.4 Changes in skin texture | CPT/HCPCS: 11042; 97597; 99213 ==

== ENCOUNTER → 2025-10-07 12:54 | Outpatient (CLI) | payer MEDICARE, MEDICAID, SELFPAY | LOC: WC 12:55 | PROVIDERS: PCP Family Medicine; Referring Provider Family Medicine; Visit Provider Surgery | DX: L95.8 Other vasculitis limited to the skin (principal); L98.492 Non-pressure chronic ulcer of skin of other sites with fat layer exposed; R60.0 Localized edema; L53.8 Other specified erythematous conditions; R23.4 Changes in skin texture | CPT/HCPCS: 11042 ==

== ENCOUNTER → 2025-10-10 13:23 | Outpatient (CLI) | payer MEDICARE, MEDICAID, SELFPAY ==
--- NOTE | 2025-10-10 13:25 | DI.MG.S_ITS ---
MM screening mammo BI: 10/10/2025. BI-RADS: 1 CLINICAL: 55-year old female for bilateral screening mammogram. Tyrer-Cuzick lifetime risk of 6.8%. No personal or first-degree family history of breast cancer. PRIOR EXAMS: No prior examinations available. MAMMOGRAPHY TECHNIQUE: 2D and 3D (tomosynthesis) digital mammographic views obtained, with additional images as needed for full coverage. Current study was also evaluated with a Computer Aided Detection (CAD) system. DENSITY C. The breasts are heterogeneously dense, which may obscure small masses. MAMMOGRAPHY FINDINGS Bilateral: No suspicious mass, asymmetry, microcalcification, or other abnormality seen. IMPRESSION: * No evidence of malignancy. RECOMMENDATIONS Bilateral * Annual screening mammography. OVERALL ASSESSMENT CATEGORY BI-RADS-1: Negative. The [employer] recommends annual screening mammography beginning at age 40 for women with average risk of breast cancer. ELECTRONICALLY SIGNED: Samantha Borden M.D. on 10/12/2025 at 11:52:42 AM PT Interpreting Station ID: [id number]
== END ==
LOC: MAMMO 13:23
PROVIDERS: PCP Family Medicine; Referring Provider Family Medicine; Visit Provider Family Medicine
DX: Z12.31 Encounter for screening mammogram for malignant neoplasm of breast (principal); R92.333 Mammographic heterogeneous density, bilateral breasts
CPT/HCPCS: 77063; 77067

== ENCOUNTER → 2025-10-14 13:53 | Outpatient (CLI) | payer MEDICARE, MEDICAID, SELFPAY | LOC: WC 13:54 | PROVIDERS: PCP Family Medicine; Referring Provider Family Medicine; Visit Provider Surgery | DX: L95.8 Other vasculitis limited to the skin (principal); L98.492 Non-pressure chronic ulcer of skin of other sites with fat layer exposed; M34.1 CR(E)ST syndrome; L53.8 Other specified erythematous conditions; R23.4 Changes in skin texture; R60.0 Localized edema | CPT/HCPCS: 11042 ==

== ENCOUNTER → 2025-10-21 10:17 | Outpatient (CLI) | payer MEDICARE, MEDICAID, SELFPAY | LOC: WC 10:18 | PROVIDERS: PCP Family Medicine; Referring Provider Family Medicine; Visit Provider Nurse Practitioner Family | DX: L95.8 Other vasculitis limited to the skin (principal); L98.492 Non-pressure chronic ulcer of skin of other sites with fat layer exposed; M34.1 CR(E)ST syndrome; L53.8 Other specified erythematous conditions; R23.4 Changes in skin texture; R60.0 Localized edema | CPT/HCPCS: 11042; 99213 ==

== ENCOUNTER → 2025-10-28 13:35 | Outpatient (CLI) | payer MEDICARE, MEDICAID, SELFPAY | LOC: WC 13:36 | PROVIDERS: PCP Family Medicine; Referring Provider Family Medicine; Visit Provider Surgery | DX: L95.8 Other vasculitis limited to the skin (principal); L98.492 Non-pressure chronic ulcer of skin of other sites with fat layer exposed; M34.1 CR(E)ST syndrome; R60.0 Localized edema; R23.4 Changes in skin texture | CPT/HCPCS: 11042; 99213 ==

== ENCOUNTER → 2025-11-04 13:52 | Outpatient (CLI) | payer MEDICARE, MEDICAID, SELFPAY | LOC: WC 13:52 | PROVIDERS: PCP Family Medicine; Referring Provider Family Medicine; Visit Provider Surgery | DX: L98.492 Non-pressure chronic ulcer of skin of other sites with fat layer exposed (principal); L95.9 Vasculitis limited to the skin, unspecified; I73.9 Peripheral vascular disease, unspecified; L53.9 Erythematous condition, unspecified; R60.0 Localized edema; I73.00 Raynaud's syndrome without gangrene | CPT/HCPCS: 11042 ==

== ENCOUNTER → 2025-11-11 15:27 | Outpatient (CLI) | payer MEDICARE, MEDICAID, SELFPAY | LOC: WC 15:32 | PROVIDERS: PCP Family Medicine; Referring Provider Family Medicine; Visit Provider Surgery | DX: L98.492 Non-pressure chronic ulcer of skin of other sites with fat layer exposed (principal); I73.9 Peripheral vascular disease, unspecified; M34.1 CR(E)ST syndrome; L08.9 Local infection of the skin and subcutaneous tissue, unspecified; R60.0 Localized edema; L53.9 Erythematous condition, unspecified | CPT/HCPCS: 11042 ==

== ENCOUNTER → 2025-11-25 14:41 | Outpatient (CLI) | payer MEDICARE, MEDICAID, SELFPAY | LOC: WC 14:48 | PROVIDERS: PCP Family Medicine; Referring Provider Family Medicine; Visit Provider Surgery | DX: L95.8 Other vasculitis limited to the skin (principal); L98.492 Non-pressure chronic ulcer of skin of other sites with fat layer exposed; M34.1 CR(E)ST syndrome; L53.8 Other specified erythematous conditions | CPT/HCPCS: 11042; 97597; 99213 ==